=== PATIENT | female | born 2000 | race Caucasian/White ===

== ENCOUNTER 2020-07-12 18:08 | Emergency (ER) | payer OTHER, SELFPAY ==
--- NOTE | ~2020-07-12 | XR_ITS ---
EXAMINATION: XR shoulder LT min 2V INDICATION: Left shoulder pain TECHNIQUE: Four views of the left shoulder are submitted. COMPARISON: None FINDINGS: Normal alignment. No fracture. Glenohumeral and acromioclavicular joint spaces are normal. Soft tissues are unremarkable. IMPRESSION: 1. No acute osseous abnormality. Reviewed, dictated and finalized at location A. TENDER
--- NOTE | ~2020-07-12 | XR_ITS ---
EXAMINATION: XR chest 1V INDICATION: Chest pain TECHNIQUE: PA view of the chest is obtained. COMPARISON: 03/26/2018 FINDINGS: The lungs are free of acute opacities. There is no pleural effusion or pneumothorax. The ca rdiomediastinal silhouette is normal. Cholecystectomy clips are noted. IMPRESSION: 1. No acute cardiopulmonary abnormality. Reviewed, dictated and finalized at location A. E SUPERVISOR
[2020-07-12 18:22] VITALS: BP 126/80; PULSE 98; RESP 17; TEMP 37.1; O2SAT 99
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
[2020-07-12] MEDS: IBUPROFEN 600 MG TABLET PO (19:42)
[2020-07-12] MEDS: CYCLOBENZAPRINE HCL 10 MG TABLET PO (20:19)
== END 2020-07-12 19:45 | disposition home or self-care (01) ==
PROVIDERS: Emergency Provider Emergency Medicine
DX: S13.4XXA Sprain of ligaments of cervical spine, initial encounter (principal); S40.012A Contusion of left shoulder, initial encounter; Z87.891 Personal history of nicotine dependence; V43.52XA Car driver injured in collision with other type car in traffic accident, initial encounter
CPT/HCPCS: 71045; 73030; 99284; A9270

== ENCOUNTER 2020-07-17 10:28 | Outpatient (CLI) | payer OTHER, SELFPAY ==
--- NOTE | ~2020-07-17 | US_ITS ---
EXAMINATION: US pelvic complete w TV DATE: 07/17/2020 11:12 INDICATION: Abnormal uterine and vaginal bleeding TECHNIQUE: Multiple transabdominal and endovaginal sonographic images of the pelvis were obtained. COMPARISON: None. FINDINGS: The uterus measures 6.8 x 2.9 x 5.1 cm. The endometrial complex measures 7 mm in thickness. The righ t ovary measures 1.8 x 2.6 x 3.5 cm. The left ovary measures 3.0 x 2.9 x 2.3 cm. There is normal vasc ular flow in the ovaries. Multiple bilateral subcentimeter anechoic follicles with larger 1.8 cm anec hoic dominant follicle at the left ovary. There is a trace amount of likely physiologic free fluid in the pelvis. IMPRESSION: 1. Normal pelvic ultrasound. Reviewed, dictated and finalized at location B. ICAL LANGUAGES PROFESSOR
== END 2020-07-17 10:29 | disposition home or self-care (01) ==
PROVIDERS: Visit Provider Obstetrics & Gynecology
DX: N93.9 Abnormal uterine and vaginal bleeding, unspecified (principal)
CPT/HCPCS: 76830; 76856

== ENCOUNTER 2021-01-21 16:43 | Outpatient (CLI) | payer OTHER, SELFPAY ==
--- NOTE | ~2021-01-21 | US_ITS ---
EXAMINATION: US OB <= 14 weeks fetus DATE: 01/21/2021 17:26 INDICATION: Encounter for supervision of normal . TECHNIQUE: Real-time transabdominal pelvic ultrasound was performed. COMPARISON: None. FINDINGS: The uterus measures 11.7 x 6.6 x 8.7 cm. There is an intrauterine gestational sac. The crown ru mp length measures 3.1 cm, which correlates with an estimated gestational age of 10 weeks and 0 day(s ) (+/-) 6 day(s). heart motion is identified measuring 161 beats per minute (bpm) by M-mode Dop pler. There is a small subchorionic hematoma measuring 2.4 x 0.4 x 1.6 cm. The right ovary is not vis ualized. The left ovary measures 3.2 x 2.2 x 2.7 cm. There is no free fluid in the pelvis. IMPRESSION: 1. Single living intrauterine gestation with estimated date of delivery of 08/19/2021. 2. Small subchorionic hematoma. Reviewed, dictated and finalized at location A. IMPRESSION: 1. Single living intrauterine gestation with estimated date of delivery of 08/03. 2. Small subchorionic hematoma.
== END 2021-01-21 16:44 | disposition home or self-care (01) ==
LOC: ANHIMG 16:46
PROVIDERS: Visit Provider Obstetrics & Gynecology
DX: O46.90 Antepartum hemorrhage, unspecified, unspecified trimester (principal); Z3A.00 Weeks of gestation of pregnancy not specified
CPT/HCPCS: 76801

== ENCOUNTER 2021-03-15 15:59 | Outpatient (CLI) | payer OTHER, SELFPAY ==
--- NOTE | ~2021-03-15 | US_ITS ---
EXAMINATION: US OB limited DATE: 03/15/2021 16:28 INDICATION: Disorder of amniotic fluid and membranes during second trimester . TECHNIQUE: Real-time ultrasound of the pelvis was performed. The interpreting radiologist was not pre sent for the study. COMPARISON: None. FINDINGS: There is a single living fetus in transverse lie. The placenta is posterior fundal and not low-lying with caudal margin 3.3 cm from the internal cervical os. There are couple a couple small heterogeneo usly hypoechoic regions along the amniotic side of the placenta measuring 1.4 x 1.1 cm on the left ma rgin and 1.8 x 1.1 cm more centrally which could represent small subamniotic lipomas or placental lak es. Color Doppler imaging this region is not provided and this could also be related to heart r ate is 165 beats per minute (bpm). The amniotic fluid volume is subjectively normal. IMPRESSION: 1. Single living fetus in transverse lie with heart rate of 165 bpm. 2. A couple small hypoechoic regions along the amniotic margin of the placenta which could represent either venous lakes or small subamniotic hematomas. Reviewed, dictated and finalized at location A.
== END 2021-03-15 16:00 | disposition home or self-care (01) ==
LOC: ANHIMG 16:00
PROVIDERS: Visit Provider Obstetrics & Gynecology
DX: O41.8X99 Other specified disorders of amniotic fluid and membranes, unspecified trimester, other fetus (principal); Z3A.00 Weeks of gestation of pregnancy not specified
CPT/HCPCS: 76815

== ENCOUNTER 2021-05-02 15:09 | Outpatient (CLI) | payer OTHER, SELFPAY ==
--- NOTE | ~2021-05-02 | US_ITS ---
EXAMINATION: US OB follow up DATE: 05/02/2021 15:57 INDICATION: Supervision of normal second trimester TECHNIQUE: Real-time ultrasound of the pelvis was performed. The interpreting radiologist was not pre sent for the study. COMPARISON: 03/15/2021 FINDINGS: There is a single living fetus in breech presentation. The placenta is posterior. car diac activity and movement are noted. heart rate is 148 beats per minute (bpm). The amnio tic fluid index is 13.4 cm which is normal. The following biometric data were obtained: Biparietal diameter (BPD): 5.6 cm; head circumference (HC): 21.7 cm; abdominal circumference (AC): 19 .5 cm; femur length (FL): 4.3 cm. These measurements are concordant. Estimated weight is 657 g +/- 98 g, which correlates with the 26th percentile when 08/19/2021 is used as estimated date of delivery. As single measurements, these parameters are each equal to the following estimated gestational ages w ith ranges of +/- 2 standard deviations: BPD: 23 weeks 2 days +/- 1 weeks 5 days. HC: 23 weeks 6 days +/- 1 weeks 3 days. AC: 24 weeks 1 days +/- 2 weeks 1 days. FL: 24 weeks 1 days +/- 2 weeks 1 days. estimated gestational age based solely on measurements from this exam is 23 weeks 6 days +/- 1 weeks 5 days. IMPRESSION: 1. Single living fetus in breech presentation. 2. Estimated weight is 657 g +/- 98 g, which correlates with the 26th percentile when 08/19/2021 is used as estimated date of delivery. 3. Normal amniotic fluid index. Reviewed, dictated and finalized at location A. IMPRESSION: 1. Single living fetus in breech presentation. 2. Estimated weight is 657 g +/- 98 g, which correlates with the 26th per centile when 08/19/2021 is used as estimated date of delivery. 3. Normal amniotic fluid index.
== END 2021-05-02 15:10 | disposition home or self-care (01) ==
PROVIDERS: Visit Provider Obstetrics & Gynecology
DX: O47.9 False labor, unspecified (principal); Z3A.23 23 weeks gestation of pregnancy
CPT/HCPCS: 76816

== ENCOUNTER 2021-08-07 06:00 | Inpatient (IN) | payer OTHER, SELFPAY ==
[2021-08-07] VITALS (122 sets, daily range): BP systolic 99–180; BP diastolic 56–90; PULSE 64–135; RESP 18; TEMP 36.6–36.8; O2SAT 98–100
--- OUTSIDE RECORDS SUMMARY | 2021-08-07 06:08 | XMS_ITS | Encounter Summary ---
:2000 Author Reason for Visit OB visit Assessment and Plan 1. Group B Streptococcus carrier 2. Routine care Discussion Note: None recorded.Patient educational handouts: No information available. Plan of Care Reminders Provider Appointments Ob Routine Mary Alice Motley, 08/14/2021 CNM 5:30PM Lab None ? ? recorded. Referral None ? ? recorded. Procedures None ? ? recorded. Surgeries None ? ? recorded. Imaging None ? ? recorded. Medications None recorded. Medications Administered None recorded. Vitals Height Weight BMI Blood Pressure 5 ft 3 in 158 lbs 28 kg/m2 119/74 mm[Hg] Results Lab Results None recorded. Allergies Code Code System Name Reaction Severity Onset 060835 RxNorm Honey Hives ? ? Latex, Natural Rash Mild to Moderate ? Rubber Problems Name Status Onset Date Source ? Active 06/26/2021 ? Marginal Insertion of Umbilical Cord Active ? ? Group B Streptococcus Carrier Active ? ? Procedures Date Name Performed by ? 09/28/2017 C
--- OUTSIDE RECORDS SUMMARY | 2021-08-07 06:08 | XMS_ITS | Encounter Summary ---
:2000 Author Reason for Visit new OB Assessment and Plan 1. Routine care Discussion Note: None recorded.Patient educational [...] BMI Blood Pressure 5 ft 3 in 150 lbs 26.6 kg/m2 123/73 mm[Hg] Results Lab Results None recorded. Allergies Code Code System Name Reaction Severity Onset 918019 RxNorm Honey Hives ? ? Latex, Natural Rash Mild to Moderate ? Rubber Problems Name Status Onset Date Source ? Active 06/26/2021 ? Marginal Insertion of Umbilical Cord Active ? ? Group B Streptococcus Carrier Active ? ? Procedures Date Name Performed by ? 09/28/2017 Cholecystectomy Information not efrenai labzaheer ?
--- OUTSIDE RECORDS SUMMARY | 2021-08-07 06:08 | XMS_ITS | Encounter Summary ---
:2000 Author Reason for Visit OB visit Assessment and Plan 1. Routine care Discussion [...] BMI Blood Pressure 5 ft 3 in 154 lbs 27.3 kg/m2 112/69 mm[Hg] Results Lab Results None recorded. Allergies Code Code System Name Reaction Severity Onset 644725 RxNorm Honey Hives ? ? Latex, Natural Rash Mild to Moderate ? Rubber Problems Name Status Onset Date Source ? Active 06/26/2021 ? Marginal Insertion of Umbilical Cord Active ? ? Group B Streptococcus Carrier Active ? ? Procedures Date Name Performed by ? 09/28/2017 Cholecystectomy Information not efrenai labzaheer ?
--- OUTSIDE RECORDS SUMMARY | 2021-08-07 06:08 | XMS_ITS ---
:2000 Author Care Team Providers Name Role Phone Karley Monteiro Primary Care Provider Unavailable Allergies Code Code System Name Reaction Severity Status Onset 427574 RxNorm Honey Hives ? Active ? Latex, Rash Mild to Active ? Natural Moderate Rubber Medications Name Status Start Date Stop Date ? ? Aspirin Low Dose 81 mg tablet,delayed release Completed ? 06/26/2021 TAKE 1 TABLET BY MOUTH TWICE DAILY bupropion HCl 150 mg tablet,12 hr sustained-release(sm oking deterrent) Completed ? 06/26/2021 TAKE 1 TABLET BY MOUTH TWICE DAILY calcium carbonate 600 mg-vitamin D3 10 mcg (400 unit) tablet Com pleted ? 06/26/2021 TAKE 1 TABLET BY MOUTH TWICE DAILY clindamycin HCl 300 mg capsule Completed ? 08/26/2020 cyclobenzaprine 10 mg tablet Completed ? TAKE 1 TABLET BY MOUTH THREE TIMES DAILY NEEDED FOR MUSCLE S PASM escitalopram 20 mg tablet Completed ? 2020 TAKE 1 TABLET BY MOUTH DAILY folic acid 1 mg tablet Completed ? TAKE 2 TABLETS BY MOUTH TWICE DAILY DIRECTED hydrocodone 5 mg-acetaminophen 325 mg tablet Completed ? 06/26/2021 TAKE 1 TABLET BY MOUTH EVERY 6 HOURS NEEDED FOR PAIN ibuprofen 800 mg tablet Completed ? 06/26/20 TAKE 1 TABLET BY MOUTH EVERY 8 HOURS NEEDED FOR PAIN metronidazole 500 mg tablet Completed ? 06/04 TAKE 1 TABLET BY MOUTH TWICE DAILY FOR 7 DAYS multivitamin tablet Completed ? 06/26/2021 TAKE 1 TABLET BY MOUTH EVERY DAY
--- OUTSIDE RECORDS SUMMARY | 2021-08-07 06:08 | XMS_ITS | Encounter Summary ---
:2000 Author Reason for Visit None recorded. Assessment and Plan 1. condition affecting obs tetrical care of mother ? US, obstetric, follow-up Discussion Note: None recorded.Patient educational handouts: No information available. Plan of Care Reminders Provider Appointments Ob Routine Mary Alice Motley, 08/14/2021 CNM 5:30PM Lab None ? ? recorded. Referral None ? ? recorded. Procedures None ? ? recorded. Surgeries None ? ? recorded. Imaging [facility] Obstetric, Follow-up 07/23/2021 Medications None recorded. Medications Administered None recorded. Vitals None recorded. Results Lab Results None recorded. Allergies Code Code System Name Reaction Severity Onset 064958 RxNorm Honey Hives ? ? Latex, Natural Rash Mild to Moderate ? Rubber Problems Name Status Onset Date Source ? Active 06/26/2021 ? Marginal Insertion of Umbilical Cord Active ? ? Group B Streptococcus Carrier Active ? ? Procedures Date Name Performed by ? 09/28/2017 Cholecystectomy Information not rafael ortiz
--- OUTSIDE RECORDS SUMMARY | 2021-08-07 06:08 | XMS_ITS | Encounter Summary ---
:2000 Author Reason for Visit OB visit Assessment and Plan 1. Routine care 2. Marginal insertion of umbilic al cord Discussion Note: None recorded.Patient educational handouts: No [...] BMI Blood Pressure 5 ft 3 in 153 lbs 27.1 kg/m2 121/74 mm[Hg] Results Lab Results None recorded. Allergies Code Code System Name Reaction Severity Onset 020984 RxNorm Honey Hives ? ? Latex, Natural Rash Mild to Moderate ? Rubber Problems Name Status Onset Date Source ? Active 06/26/2021 ? Marginal Insertion of Umbilical Cord Active ? ? Group B Streptococcus Carrier Active ? ? Procedures Date Name Performed by ? 09/28/2017
--- OUTSIDE RECORDS SUMMARY | 2021-08-07 06:08 | XMS_ITS | Encounter Summary ---
:2000 Author Reason for Visit None recorded. Assessment and Plan 1. Uterine size for dates discre pancy ? US, obstetric, follow-up Discussion Note: None recorded.Patient educational handouts: No information available. Plan of Care Reminders Provider Appointments Ob Routine Mary Alice Motley, 08/14/2021 CNM 5:30PM Lab None ? ? recorded. Referral None ? ? recorded. Procedures None ? ? recorded. Surgeries None ? ? recorded. Imaging , [place] Obstetric, Follow-up 06/26/2021 Medications None recorded. Medications Administered None recorded. Vitals None recorded. Results Lab Results None recorded. Allergies Code Code System Name Reaction Severity Onset 685214 RxNorm Honey Hives ? ? Latex, Natural Rash Mild to Moderate ? Rubber Problems Name Status Onset Date Source ? Active 06/26/2021 ? Marginal Insertion of Umbilical Cord Active ? ? Group B Streptococcus Carrier Active ? ? Procedures Date Name Performed by ? 09/28/2017 Cholecystectomy Information not rafael ortiz
[2021-08-07 06:55] LABS: Basophils Percent Auto 0.2 % (0.2-1.2); Eosinophils Absolute Auto 0.1 K/mm3 (0-0.3); Eosinophils Percent Auto 1.2 % (0-4.4); Hematocrit 37.7 % (37.0-47.0); Hemoglobin 12.8 g/dL (12.0-15.0); Immature Granulocyte Absolute 0.08 K/mm3 (0.00-0.031); Immature Granulocyte Percent A 0.7 % (0-0.5); Lymphocytes Absolute Auto 2.44 K/mm3 (0.9-3.2); Lymphocytes Percent Auto 20.1 % (18.3-44.2); Mean Corpuscular Hemoglobin 30.8 pg (26-34); Mean Corpuscular Volume 90.8 fl (80-100); Mean Platelet Volume 10.5 fl (7.4-10.4); Monocytes Absolute Auto 0.8 K/mm3 (0.1-0.6); Monocytes Percent Auto 6.8 % (2.6-8.5); Neutrophils Absolute Auto 8.6 K/mm3 (1.3-6.7); Platelet Count Result 197 k/mm3 (150-375); Red Blood Count 4.15 M/mm3 (4.2-5.4); Red Cell Distribution Width 12.9 % (11.5-14.5); White Blood Count 12.2 K/mm3 (4.5-10.0)
[2021-08-07] MEDS: LACTATED RINGERS 1,000 ML 125 ML IV CONT ×2 (07:10→14:10)
[2021-08-07] MEDS: OXYTOCIN 30 UNITS/NS 500 ML 30 UNITS/500 ML BAG IV CONT ×3 (07:11→15:14)
[2021-08-07] MEDS: AMPICILLIN 2 GM/NS 100 ML 2 GM/100 ML BAG IVPB (07:12)
--- NOTE | 2021-08-07 07:33 | WPDOBADMIT ---
Obstetrics - Admit Note Admission Note: record reviewed. No pertinent additions to the history and/or any subsequent changes in the physical findings that are not consistent with the expected course of the were found. Additions to the history and/or subsequent changes in the physical findings follow. at 39w for elective IOL. uncomplicated except by GBS pos and transfer to us in 3rd trimester. AROM small clear 3/50 continue antibiotics and pitocin FHT category 1
--- NOTE | 2021-08-07 07:54 | P.PNAN_ITS ---
Anes - Eval Pre Procedure Date/Time: 08/07/21 07:54 Pre Op Diagnosis: IOL Patient Data Age: 20 Gender: F Height: Weight: Last Vital Signs Pulse 90 08/07/21 07:45 BP 117/77 08/07/21 07:45 Allergies Allergy/AdvReac Type Severity Reaction Status Date / Time honey Allergy Unknown Swelling Verified 07/19/21 12:47 of Lip/Tongue/Throat latex Allergy Unknown Itching Verified 07/19/21 12:47 metoclopramide Allergy Unknown Other Verified 07/12/20 18:21 Laboratory Tests 08/07/21 08/07/21 06:43 06:43 WBC 12.2 K/mm3 H K/mm3 (4.5-10.0) RBC 4.15 M/mm3 L M/mm3 (4.2-5.4) Hgb 12.8 g/dL g/dL (12.0-15.0) Hct 37.7 % % (37.0-47.0) MCV 90.8 fl fl (80-100) MCH 30.8 pg pg (26-34) MCHC 34.0 g/dl g/dl (32-36) RDW 12.9 % % (11.5-14.5) Plt Count 197 k/mm3 k/mm3 (150-375) MPV 10.5 fl H fl (7.4-10.4) Immature Gran % (Auto) 0.7 % H % (0-0.5) Neut % (Auto) 71.0 % % (45.5-73.1) Lymph % (Auto) 20.1 % % (18.3-44.2) [place] % (Auto) 6.8 % % (2.6-8.5) Eos % (Auto) 1.2 % % (0-4.4) Baso % (Auto) 0.2 % % (0.2-1.2) Lymph # (Auto) 2.44 K/mm3 K/mm3 (0.9-3.2) [place] # (Auto) 0.8 K/mm3 H K/mm3 (0.1-0.6) Eos # (Auto) 0.1 K/mm3 K/mm3 (0-0.3) Baso # (Auto) 0.0 K/mm3 K/mm3 (0.0-0.1) Abs Immat Gran (auto) 0.08 K/mm3 H K/mm3 (0.00-0.031) Absolute Neuts (auto) 8.6 K/mm3 H K/mm3 (1.3-6.7) Absolute Nucleated RBC 0.0 K/mm3 K/mm3 (0.0-0.012) Nucleated RBC % 0.0 % % (0.0-0.2) RPR Pending Patient hx anesthesia problems: none Family hx anesthesia problems: none Results Review: All pre-operative results and documents have been reviewed as part of the pre-operative evaluation. [facility] Past Medical History Medical History (Updated 08/07/21 @ 08:03 by Eryn Carty CRNA) Anxiety and depression Smoker Tricuspid insufficiency EF 55% Family History Family History Mother Family history of kidney disease Sibling Family history of kidney disease Social History Social History Smoking status: Current every day smoker Tobacco type: cigarettes Second hand tobacco smoke exposure: No Smoking end date: 08/03/17 Alcohol intake: never Substance use: never Gender identity (if verbalized by the patient): Female Spiritual care concerns: No Exam Day of Procedure 08/07/21 07:54 Patient weight: normal Heart: regular rate and rhythm Lungs: clear to auscultation Airway: Mallampati scale Neurological: alert and oriented
[2021-08-07 10:27] LABS: Benzodiazepines Screen Urine Negative (Negative)
[2021-08-07 10:33] LABS: Barbiturate Screen Urine Negative (Negative)
[2021-08-07 10:38] LABS: Amphetamine Screen Urine Negative (Negative); Cannabinoid Screen Urine Negative (Negative); Cocaine Screen Urine Negative (Negative); Methadone Screen Urine Negative (Negative); Opiate Screen Urine Negative (Negative); Phencyclidine Screen Urine Negative (Negative)
[2021-08-07] MEDS: AMPICILLIN 1 GM/NS 50 ML 1 GM/50 ML BAG IVPB (11:25)
--- NOTE | 2021-08-07 14:43 | PM.OBPRVD ---
OB - Delivery Note Procedure Delivery date: 08/07/21 Procedure: Intrapartal events: None Induction method: AROM and per pitocin protocol Delivery monitor: external FHT and external uterine Route of delivery: Episiotomy description: None Laceration Description: Periurethral (left periurethral and clitoral) and Vaginal - 2nd Degree Delivery repair: vicryl Specimen: No Quantitative Blood Loss (ml): 350 Anesthesia type: Epidural Disposition: floor Narrative: With adequate expulsive efforts by the mother, the baby's head was delivered OA. The baby's anterior shoulder was delivered under the pubic symphysis without difficulty. The posterior shoulder and the rest of the baby delivered without difficulty. The was placed on the mothers chest and suctioned and stimulated. The cord was clamped and cut after 30 seconds. Mother and baby both stable. [place] Baby Date of : 08/07/21 Time of : 14:23 Weeks of gestation at delivery: 39 gender: Male Weight (pounds): 6 Weight (ounces): 11 presentation: vertex Placenta delivery description: Spontaneous cord vessel description: 3 Vessels and Delayed Cord Clamping score one minute: 8 score five minutes: 9
--- NOTE | 2021-08-07 17:03 | PC.NURSE ---
Patient transferred to post room #285 per wheelchair. Support person present. Oriented to unit, room, information board, rooming in, admission packet and security measures. Patient verbalizes understanding.
--- NOTE | 2021-08-07 19:45 | PC.NURSE ---
Breast pump provided due to [ineffective feedings]. Instructions given on breast pump care and usage, pumping schedule, nipple care, and collection and storage of breast milk. Encouraged [id number], breast massage and manual expression to stimulate supply. Pumping log provided and reviewed. Assessed patient for correct flange size, placement and draw. Patient verbalizes and demonstrates understanding of instructions.
[2021-08-07] MEDS: IBUPROFEN 600 MG TABLET PO (19:52)
[2021-08-08] MEDS: IBUPROFEN 600 MG TABLET PO ×3 (04:25→18:05)
[2021-08-08 04:55] LABS: Hematocrit 34.1 % (37.0-47.0); Hemoglobin 11.6 g/dL (12.0-15.0)
--- NOTE | 2021-08-08 07:39 | PM.OBPNVD ---
OB - PN: Subj Subjective Date/time seen: 08/08/21 07:39 Patient comments: no complaints baby status: doing well OB - PN: Obj Data Labs CBC & Chem 7: 08/08/21 04:18 Labs: Laboratory Results - last 24 hr 08/07/21 08/07/21 08/08/21 06:43 09:50 04:18 Hgb 11.6 L Hct 34.1 L Urine Opiates Screen Negative Urine Methadone Screen Negative Ur Barbiturates Screen Negative Ur Phencyclidine Scrn Negative Ur Amphetamine Screen Negative U Benzodiazepines Scrn Negative Urine Cocaine Screen Negative U Cannabinoids Screen Negative Blood Type O Positive Antibody Screen Negative OB - PN A/P Plan day: 1 Plan: routine care Time Spent With Patient Time: Total time spent is greater than 50% in coordination of care (as documented) at patient's floor/unit and/or counseling patient: Time with patient: less than 15 minutes Review of Systems Review of Systems: All systems reviewed & are unremarkable except as noted in HPI and below Exam Narrative: Fundus firm and vaginal flow controlled. No lower ext redness, warmth, or edema. Negative homans. Const: General: comfortable Chest: Breast/axilla inspection: normal inspection of the breasts Resp: Effort & Inspection: normal respiratory effort Cardio: Rate: regular rate GI: GI Palp: Yes Soft to palpation Psych: Appearance: grossly normal Affect: normal affect Attitude: cooperative Thought content: Yes Normal thought content present Judgement: Good judgement present (Psych)
--- NOTE | 2021-08-08 07:40 | P.DS_ITS ---
DS: Admitting Diagnosis Discharge Date 08/08/20 Admitting Diagnosis Induction of labor OB - DS: Summary OB Procedures : None OB Procedures Intrapartum: Spontaneous Vag Delivery OB Procedures: : None Time Spent with Patient Time attestation: Total time spent providing and/or coordinating discharge serv ices: DS: Data Data Completed and Pending Labs on day of discharge: Labs from last 24 hours 08/08/21 08/07/21 08/07/21 04:18 09:50 06:43 Hgb 11.6 L Hct 34.1 L Urine Opiates Screen Negative Urine Methadone Screen Negative Ur Barbiturates Screen Negative Ur Phencyclidine Scrn Negative Ur Amphetamine Screen Negative U Benzodiazepines Scrn Negative Urine Cocaine Screen Negative U Cannabinoids Screen Negative Blood Type O Positive Antibody Screen Negative Discharge Plan Discharge Attending physician on discharge: Karley Monteiro Discharging Clinician: Alicia Vu Patient Disposition: Home, Self-Care Activity: pelvic rest Diet: as tolerated Patient Instructions: Antibiotic Form Stand Alone Forms: General Discharge Information Follow-up/Referrals: Karley Monteiro MD [Physician] - Date of admission: 08/07/21 06:00 Primary Care Provider: PHYSICIAN,AUDIO DIRECTOR Admitting Provider: Karley Monteiro Attending physician on admission: Karley Monteiro Condition: Stable
[2021-08-08 08:00] VITALS: BP 106/56; PULSE 69; RESP 18; TEMP 36.4; O2SAT 99
--- NOTE | 2021-08-08 08:00 | PC.NURSE ---
Patient was given the opportunity to view the discharge video Mother & Baby Care, The First Two Weeks and to ask questions. Patient declined viewing the video and has been given the mother/baby guide for home reference.
[2021-08-08] MEDS: BENZOCAINE 20% AER SPR (*SP) 56 GM CAN 1 SPRAY TOPICAL (08:55)
[2021-08-08] MEDS: WITCH HAZEL 40 PADS 1 PAD TOPICAL (08:55)
[2021-08-08] MEDS: MULTIVIT/MIN/PREN/FOL AC/IRON TABLET 1 TAB PO (08:56)
[2021-08-08] MEDS: DOCUSATE SODIUM 100 MG CAPSULE PO ×2 (08:56→18:05)
--- NOTE | 2021-08-08 09:59 | PC.NURSE ---
Self care and infant care discharge instructions given including follow up visit date and time. Mother verbalized understanding. No questions or concerns voiced. Very pleasant and cooperative.
--- NOTE | 2021-08-08 10:50 | WPDANLDPN2 ---
Anes-Prog Note L&D Date/Time: 08/08/21 10:50 Comfortable throughout: labor and delivery Neuraxial method: epidural Epidural/Spinal procedure site: clean & non-tender Neuro status: Neuro function grossly intact. Cardiovascular status: normal Respiratory status: normal Airway patency: baseline Mental status: baseline Post-Op hydration status: normal Vital Signs: Last Vital Signs Temp 36.4 C 08/08/21 08:00 Pulse 69 08/08/21 08:00 Resp 18 08/08/21 08:00 BP 106/56 L 08/08/21 08:00 Pulse Ox 99 08/08/21 08:00 Pain score (VAS): 08/12 I/O: Intake & Output 08/07/21 08/08/21 08/08/21 23:59 07:59 15:59 Intake Total 1000 Output Total 350 Balance 650 Post-procedural complaints: none Patient feedback: Patient satisfied with anesthetic care.
--- NOTE | 2021-08-08 11:54 | PC.NURSE ---
08/07/2021 1536 [facility]. [facility] called for assistance with getting infant to latch in room 108. time was 1423 and mom states baby went skin to skin about 30 min ago. Infant remains skin to skin. RN reviewed feeding cues and to call for assistance with latch as infant is reluctant to go to breast at this time. Mom states her concerns with her nipple, breast, milk production being enough, states I might need a nipple shield and shared that she experienced mastitis with her last . Encouragement given to mom after reviewing her desire to pump and feed breastmilk. Reviewed hand nipple stimulation, stimulation with effective and/or pumping. Mom verbalized understanding and reinforcement will be needed. RN reported to the primary nurse.
[2021-08-08 13:58] LABS: Rapid Plasma Reagin Non-Reactive (NonReactive)
== END 2021-08-08 19:30 | disposition home or self-care (01) | DRG 560 ==
LOC: ANHLDR 06:06 → ANHOB2 19:19
PROVIDERS: Admitting Provider Obstetrics & Gynecology; Visit Provider Obstetrics & Gynecology
DX: O43.123 Velamentous insertion of umbilical cord, third trimester (principal); O99.334 Smoking (tobacco) complicating childbirth; F17.210 Nicotine dependence, cigarettes, uncomplicated; Z3A.39 39 weeks gestation of pregnancy; Z37.0 Single live birth; O71.82 Other specified trauma to perineum and vulva; O70.1 Second degree perineal laceration during delivery
CPT/HCPCS: 36415; 80307; 85014; 85018; 85025; 86592; 86850; 86900; 86901; A9270; J0290; J2590; J2795; J7120

== ENCOUNTER 2022-11-10 13:47 | Emergency (ER) | payer OTHER, SELFPAY ==
--- NOTE | ~2022-11-10 | US_ITS ---
EXAMINATION: US OB transvaginal DATE: 11/10/2022 15:50 INDICATION: Abdominal pain. TECHNIQUE: Real-time transabdominal and transvaginal obstetric ultrasound. FINDINGS: No prior studies for comparison. The uterus measures 11.4 x 7 x 8.2 cm. There is an intrauterine gestational sac, with pole iden tified. The crown rump length measures 2.62 cm, which correlates with a estimated gestational age of 9 weeks 3 days. heart tones are identified measuring 177 BPM. There is a subchorionic hemorr leola measuring 1.7 x 1.6 x 0.7 cm. There is a corpus luteal cyst of the right ovary measuring 1.7 cm. The left ovary is unremarkable. IMPRESSION: 1. SL IUP with an EGA of 9 weeks, 3 days (EDC by current ultrasound of 06/12/2023). 2: Small subchorionic hemorrhage. Reviewed, dictated and finalized at location B. IMPRESSION: 1. SL IUP with an EGA of 9 weeks, 3 days (EDC by current ultrasound of 06/12/20 23). 2: Small subchorionic hemorrhage.
[2022-11-10 14:03] VITALS: BP 112/62; PULSE 76; RESP 18; TEMP 37.1; O2SAT 99
[2022-11-10 16:11] LABS: Basophils Percent Auto 0.3 % (0.2-1.2); Eosinophils Absolute Auto 0.2 K/mm3 (0-0.3); Eosinophils Percent Auto 1.7 % (0-4.4); Hematocrit 40.8 % (37.0-47.0); Hemoglobin 13.6 g/dL (12.0-15.0); Immature Granulocyte Absolute 0.02 K/mm3 (0.00-0.031); Immature Granulocyte Percent A 0.2 % (0-0.5); Lymphocytes Absolute Auto 2.79 K/mm3 (0.9-3.2); Lymphocytes Percent Auto 28.1 % (18.3-44.2); Mean Corpuscular HGB Conc 33.3 g/dl (32-36); Mean Corpuscular Hemoglobin 30.8 pg (26-34); Mean Corpuscular Volume 92.3 fl (80-100); Monocytes Absolute Auto 0.8 K/mm3 (0.1-0.6); Monocytes Percent Auto 7.8 % (2.6-8.5); Neutrophils Absolute Auto 6.1 K/mm3 (1.3-6.7); Neutrophils Percent Auto 61.9 % (45.5-73.1); Platelet Count Result 250 k/mm3 (150-375); Red Blood Count 4.42 M/mm3 (4.2-5.4); Red Cell Distribution Width 12.6 % (11.5-14.5); White Blood Count 9.9 K/mm3 (4.5-10.0)
--- NOTE | 2022-11-10 16:17 | ED.ABDPAIN ---
HPI - Abdominal Pain General Chief Complaint: Abdominal Pain Stated Complaint: abdominal pain Time Seen by Provider: 11/10/22 16:07 History of Present Illness HPI narrative: Patient is a 22-year-old female who is currently about 8 weeks by LMP with a history of cholecystitis status post cholecystectomy in 2018 here for evaluation epigastric abdominal pain x4 days. Patient states the pain is there after she eats. She is currently pain-free, but also has not eaten anything today. It is described as a burning sensation and occasionally moves to her back. She had a similar sensation in the past but states it resolved without intervention, never had this worked up. Some nausea but no vomiting. No vaginal bleeding, sudden gush of fluids, contractions, fevers, chills, diarrhea or constipation. Related Data Allergies Allergy/AdvReac Type Severity Reaction Status Date / Time honey Allergy Unknown Swelling Verified 11/10/22 13:48 of Lip/Tongue/Throat latex Allergy Unknown Itching Verified 11/10/22 13:48 metoclopramide Allergy Unknown Other Verified 11/10/22 13:48 Review of Systems Review of Systems: Gen: Denies fevers or chills Eyes: Denies eye pain or visual change ENT: Denies congestion Respiratory: Denies shortness of breath or cough CV: Denies chest pain or palpitations GI: reports abdominal pain, nausea : denies burning, urgency, frequency or hematuria Musculoskeletal: Denies back pain or muscle pain Neuro: Denies numbness, tingling, weakness or focal weakness Skin: Denies rash Except as documented, all other systems reviewed and negative PMFSH Past Medical History Medical History Anxiety and depression Smoker Tricuspid insufficiency EF 55% Family History Family History Mother Family history of kidney disease Sibling Family history of kidney disease Social History Social History Smoking status: Current every day smoker Tobacco type: cigarettes Second hand tobacco smoke exposure: No Smoking end date: 08/03/17 Alcohol intake: never Substance use: never Gender identity (if verbalized by the patient): Female Spiritual care concerns: No Exam Narrative: APPEARANCE: Well appearing, no pain in distress, well-nourished. Head: Normocephalic and atraumatic. EYES: PERRLA/EOMI, conjunctivae clear NOSE: No nasal drainage EARS: External ear normal in appearance THROAT: Oropharynx is clear. Mucous membranes are moist. NECK: Supple. No adenopathy, no masses. RESPIRATORY: Airway patent, respirations nonlabored. Clear to auscultation bilaterally, no rales, rhonchi, wheezing. CARDIOVASCULAR: Regular rate and rhythm without murmurs, rubs, or gallops. ABDOMINAL: No abdominal tenderness on exam. No rebound tenderness or guarding. Soft, nondistended. MUSCULOSKELETAL: Extremities are warm and well-perfused. Moves all extremities well. No edema. NEURO: Normal speech. No focal neurologic deficits. SKIN: Skin is warm and dry. No rashes. PSYCHIATRIC: Normal affect/mood. Course Vital Signs Vital signs: Vital Signs Temperature 98.7 F 11/10/22 14:03 Pulse Rate 76 11/10/22 14:03 Respiratory Rate 18 11/10/22 14:03 Blood Pressure 112/62 11/10/22 14:03 Pulse Oximetry 99 11/10/22 14:03 Oxygen Delivery Room Air 11/10/22 14:03 Temperature 98.7 F 11/10/22 14:03 Pulse Rate 85 11/10/22 16:48 Respiratory Rate 18 11/10/22 16:48 Blood Pressure 115/72 11/10/22 16:48 Pulse Oximetry 100 11/10/22 16:48 Oxygen Delivery Room Air 11/10/22 14:03 MDM - Abdominal Pain MDM Narrative Medical decision making narrative: 22 year old female here for evaluation of post prandial epigastric burning x 3 days, associated with some nausea. She has normal vital signs and no abdominal tenderness on exam. History of cholecystectomy. No elevation in h
[2022-11-10] MEDS: LACTATED RINGERS 1,000 ML 999 ML IV CONT (16:25)
[2022-11-10 16:26] LABS: Alanine Aminotransferase 16 U/L (6-35); Albumin Level 4.3 g/dL (3.5-5.1); Alkaline Phosphatase 61 U/L (38-126); Anion Gap 8 mmol/L (8-16); Aspartate Amino Transferase 21 U/L (14-36); Bilirubin,Total 0.4 mg/dL (0.2-1.3); Blood Urea Nitrogen 12 mg/dL (7-17); Calcium 9.1 mg/dL (8.4-10.2); Carbon Dioxide 26 mmol/L (22-30); Chloride 102 mmol/L (98-107); Estimated CRCL calculation 121 ml/min; Estimated Glomerular Filt Rate > 60; Glucose 83 mg/dL (65-110); Lipase 57 U/L (23-300); Potassium 3.9 mmol/L (3.4-5.0); Sodium 136 mmol/L (137-145)
[2022-11-10] MEDS: FAMOTIDINE 20 MG/2 ML VIAL IV PUSH (16:45)
[2022-11-10 16:48] VITALS: BP 115/72; PULSE 85; RESP 18; O2SAT 100
[2022-11-10 17:05] LABS: Appearance Urine Cloudy (Clear); Bacteria Urine 1+ /hpf; Bilirubin Urine Negative (Negative); Blood Urine Negative (Negative); Color Urine Yellow (Yellow); Glucose Urine UA Negative (Negative); Ketones Urine Negative (Negative); Leukocyte Esterase Ur 2+ LEU/UL (Negative); Need Manual Microscopic Reviewed; Nitrate Urine Negative (Negative); Non Pathogenic Casts 0-2; Protein Urine Negative (Negative); RBC Urine 0-2 /hpf (0-2); Specific Grav Ur 1.024 (1.001-1.035); Squamous Epithelial Cell Urine Moderate /hpf (Few); Urobilinogen Urine 0.2 mg/dL (<2.0); WBC Urine 0-5 /hpf; pH Urine 5.5 (5.0-9.0)
[2022-11-10 17:17] LABS: Add Urine Microscopic? YES
== END 2022-11-10 18:35 | disposition home or self-care (01) ==
LOC: ANHED 17:41
PROVIDERS: Emergency Medicine; Emergency Provider Physician Assistant; PCP Nurse Practitioner Family
DX: O23.41 Unspecified infection of urinary tract in pregnancy, first trimester (principal); N39.0 Urinary tract infection, site not specified; O99.331 Smoking (tobacco) complicating pregnancy, first trimester; F17.210 Nicotine dependence, cigarettes, uncomplicated; Z3A.08 8 weeks gestation of pregnancy
CPT/HCPCS: 36415; 76817; 80053; 81001; 81025; 83690; 84702; 85025; 85461; 86850; 86900; 86901; 96374; 99284; J7120

== ENCOUNTER 2023-05-27 12:06 | Outpatient (CLI) | payer OTHER, SELFPAY ==
--- NOTE | 2023-05-27 12:36 | PC.NURSE ---
Marilyn Motley notified of ROM plus negative. Discharge home received from [facility].
[2023-05-27 12:52] VITALS: BP 121/70; PULSE 80
== END 2023-05-27 12:55 | disposition home or self-care (01) ==
LOC: ANHOBOP 12:41 → ANHLDR 12:42
PROVIDERS: PCP Nurse Practitioner Family; Visit Provider Advanced Practice Midwife
DX: O42.90 Premature rupture of membranes, unspecified as to length of time between rupture and onset of labor, unspecified weeks of gestation (principal); Z3A.00 Weeks of gestation of pregnancy not specified
CPT/HCPCS: 59025; 84112; 99199

== ENCOUNTER 2023-06-05 05:58 | Inpatient (IN) | payer OTHER, SELFPAY ==
[2023-06-05] VITALS (99 sets, daily range): BP systolic 105–142; BP diastolic 51–110; PULSE 72–108; RESP 16–20; TEMP 36.4–37.7; O2SAT 90–100; BMI 30.8
--- NOTE | 2023-06-05 06:31 | LDADM ---
This patient, Joann Parson, was admitted to Labor/Delivery/Recovery 107 on 06/05/23 at 05:58. Plans for labor, pain management and were discussed with patient. Patient/family oriented to hospital policies and general routines including ID bracelet, bed and alarms, visiting hours, pain management, procedures, bathroom and other care routines, personal items, smoking policy, room service/diet and guest tray routines, infant security routines, and visiting hours. Patient/Family are encouraged to report perceived risks to care and to ask questions if they do not understand what they are told or what they should do. See OBIX for further documentation.
[2023-06-05 07:03] LABS: Basophils Absolute Auto 0.1 K/mm3 (0.0-0.1); Basophils Percent Auto 0.4 % (0.2-1.2); Eosinophils Absolute Auto 0.1 K/mm3 (0-0.3); Eosinophils Percent Auto 0.8 % (0-4.4); Hematocrit 36.4 % (37.0-47.0); Hemoglobin 11.6 g/dL (12.0-15.0); Immature Granulocyte Percent A 0.8 % (0-0.5); Lymphocytes Absolute Auto 3.23 K/mm3 (0.9-3.2); Lymphocytes Percent Auto 25.6 % (18.3-44.2); Mean Corpuscular HGB Conc 31.9 g/dl (32-36); Mean Corpuscular Hemoglobin 28.6 pg (26-34); Mean Corpuscular Volume 89.7 fl (80-100); Mean Platelet Volume 10.9 fl (7.4-10.4); Monocytes Percent Auto 8.2 % (2.6-8.5); Neutrophils Absolute Auto 8.1 K/mm3 (1.3-6.7); Neutrophils Percent Auto 64.2 % (45.5-73.1); Platelet Count Result 243 k/mm3 (150-375); Red Blood Count 4.06 M/mm3 (4.2-5.4); Red Cell Distribution Width 12.5 % (11.5-14.5); White Blood Count 12.6 K/mm3 (4.5-10.0)
[2023-06-05] MEDS: LACTATED RINGERS 1,000 ML 125 ML IV CONT ×2 (07:06→10:20)
[2023-06-05] MEDS: OXYTOCIN 30 UNITS/NS 500 ML 30 UNITS/500 ML BAG IV CONT (07:06)
--- NOTE | 2023-06-05 07:20 | WPDOBADMIT ---
Obstetrics - Admit Note Admission Note: record reviewed. No pertinent additions to the history and/or any subsequent changes in the physical findings that are not consistent with the expected course of the were found. Additions to the history and/or subsequent changes in the physical findings follow. IOL, /-2 AROM clear, odorless fluid, anticipate vaginal delivery
--- NOTE | 2023-06-05 10:35 | WPDANESEPP ---
Anes - Eval Pre Procedure Procedure: labor epidural Date/Time: 06/05/23 10:35 Surgeon: Marco Andino Preop Diagnosis: pain during labor Pre Op Diagnosis: Induction of Labor Patient Data Age: 22 Gender: F Height: 1.6 m Weight: 79 kg Last Vital Signs Temp 36.6 C 06/05/23 09:30 Pulse 79 06/05/23 10:31 Resp 18 06/05/23 09:30 BP 125/72 06/05/23 10:31 O2 Del Method Room Air 06/05/23 06:30 Allergies Allergy/AdvReac Type Severity Reaction Status Date / Time honey Allergy Unknown Swelling Verified 05/15/23 15:32 of Lip/Tongue/Throat latex Allergy Unknown Itching Verified 05/15/23 15:32 metoclopramide Allergy Unknown Other Verified 05/15/23 15:32 Home Medications Medication Instructions Recorded Confirmed Type prenat.vits,saeed,hev-tzwh-xxhsh tablet 05/15/23 History Laboratory Tests 06/05/23 06:11 WBC 12.6 H K/mm3 (4.5-10.0) RBC 4.06 L M/mm3 (4.2-5.4) Hgb 11.6 L g/dL (12.0-15.0) Hct 36.4 L % (37.0-47.0) MCV 89.7 fl (80-100) MCH 28.6 pg (26-34) MCHC 31.9 L g/dl (32-36) RDW 12.5 % (11.5-14.5) Plt Count 243 k/mm3 (150-375) MPV 10.9 H fl (7.4-10.4) Immature Gran % (Auto) 0.8 H % (0-0.5) Neut % (Auto) 64.2 % (45.5-73.1) Lymph % (Auto) 25.6 % (18.3-44.2) [place] % (Auto) 8.2 % (2.6-8.5) Eos % (Auto) 0.8 % (0-4.4) Baso % (Auto) 0.4 % (0.2-1.2) Lymph # (Auto) 3.23 H K/mm3 (0.9-3.2) [place] # (Auto) 1.0 H K/mm3 (0.1-0.6) Eos # (Auto) 0.1 K/mm3 (0-0.3) Baso # (Auto) 0.1 K/mm3 (0.0-0.1) Abs Immat Gran (auto) 0.10 H K/mm3 (0.00-0.031) Absolute Neuts (auto) 8.1 H K/mm3 (1.3-6.7) Absolute Nucleated RBC 0.0 K/mm3 (0.0-0.012) Nucleated RBC % 0.0 % (0.0-0.2) RPR Pending Blood Type O Positive Antibody Screen Negative Patient hx anesthesia problems: none Family hx anesthesia problems: none Results Review: All pre-operative results and documents have been reviewed as part of the pre-operative evaluation. [facility] Past Medical History Medical History Anxiety and depression Smoker Tricuspid insufficiency EF 55% Family History Family History Mother Family history of kidney disease Sibling Family history of kidney disease Social History Social History Smoking status: Former smoker Tobacco type: cigarettes and e-cigarettes/vaping Second hand tobacco smoke exposure: No Smoking end date: 08/03/17 Alcohol intake: never Substance use: never Lack of Transportation: No Lack of Food: Never True Current Housing: I Have Housing Concerned About Future Housing: No Difficulty Paying Gas/Electric Bills: No Difficulty Paying for Meds: No Currently Unemployed: No Education: High School Diploma/GED Difficulty w/ Childcare or Family Care: No Gender identity (if verbalized by the patient): Female Spiritual care concerns: No Exam Day of Procedure 06/05/23 10:35 Patient weight: overweight Heart: regular rate and rhythm Lungs: normal air movement Airway: Mallampati scale class II Neurological: alert and oriented
[2023-06-05 14:06] LABS: Rapid Plasma Reagin Non-Reactive (NonReactive)
--- NOTE | 2023-06-05 15:37 | PM.OBPRVD ---
OB - Vaginal Delivery Note Procedure Delivery date: 06/05/23 Induction method: AROM and Per Pitocin Protocol Delivery monitor: External FHT and External Uterine Route of delivery: Episiotomy description: None Laceration Description: Other (Right periurthral) Delivery repair: vicryl Specimen: No Quantitative Blood Loss (ml): 150 Anesthesia type: Epidural Disposition: Floor Baby Date of : 06/05/23 Time of : 15:12 Weeks of gestation at delivery: 39 gender: Female presentation: vertex position: Left Occiput Anterior Placenta delivery description: Spontaneous Cord Vessel Description: 3 Vessels, Clamped/Cut and Delayed Cord Clamping score one minute: 9 score five minutes: 9 Narrative: mother and baby skin to skin in stable condition
[2023-06-05] MEDS: OXYTOCIN 30 UNITS/NS 500 ML 30 UNITS/500 ML BAG 125 UNITS IV CONT (15:45)
--- NOTE | 2023-06-05 17:48 | OBPPTRN ---
Patient transferred to post room # 285 via wheelchair. Support person present. Oriented to unit, room, information board, rooming in, admission packet and security measures. Patient verbalizes understanding.
[2023-06-05] MEDS: WITCH HAZEL 40 PADS 1 PAD TOPICAL (20:19)
[2023-06-05] MEDS: BENZOCAINE 20% AER SPR (*SP) 56 GM CAN 1 SPRAY TOPICAL (20:19)
[2023-06-05] MEDS: IBUPROFEN 600 MG TABLET PO (20:27)
[2023-06-06 00:35] VITALS: BP 88/47; PULSE 72; RESP 16; TEMP 36.3
[2023-06-06 05:28] LABS: Hematocrit 34.3 % (37.0-47.0); Hemoglobin 10.9 g/dL (12.0-15.0)
--- NOTE | 2023-06-06 07:57 | PM.OBPNVD ---
OB - PN: Subj Subjective Date/time seen: 06/06/23 07:57 Patient comments: no complaints, pain well controlled, incisional pain, tolerating diet and flatus present OB - PN: Obj Data Labs 06/06/23 05:08 Labs: Laboratory Results - last 24 hr 06/05/23 06/06/23 06:11 05:08 Hgb 10.9 L Hct 34.3 L RPR Non-reactive OB - PN A/P Plan day: 1 Plan: routine care Comments: No problems, routine care Time Spent With Patient Time: Total time spent is greater than 50% in coordination of care (as documented) at patient's floor/unit and/or counseling patient: Exam Const: General: comfortable, no acute distress and alert Resp: Effort & Inspection: normal respiratory effort Auscultation: no crackles, no rales and no rhonchi Cardio: Rate: regular rate Heart sounds: no click, no murmurs and no rubs GI: Inspection: non-distended GI Palp: No Tenderness to palpation present (GI) Auscultation: normal bowel sounds Other: Incision - CDI Extrem: General: normal to inspection, no pedal edema and no calf tenderness
[2023-06-06 09:20] VITALS: BP 111/74; PULSE 76; RESP 18; TEMP 36.6
[2023-06-06] MEDS: MULTIVIT/MIN/PREN/FOL AC/IRON TABLET 1 TAB PO (09:23)
[2023-06-06] MEDS: IBUPROFEN 600 MG TABLET PO (09:23)
--- NOTE | 2023-06-06 09:57 | WPDANLDPN2 ---
Anes-Prog Note L&D Date/Time: 06/06/23 09:57 Comfortable throughout: labor and delivery Neuraxial method: epidural Epidural/Spinal procedure site: clean & non-tender Neuro status: Neuro function grossly intact. Cardiovascular status: normal Respiratory status: normal Airway patency: baseline Mental status: baseline Vital Signs: Last Vital Signs Temp 97.9 F 06/06/23 09:20 Pulse 76 06/06/23 09:20 Resp 18 06/06/23 09:20 BP 111/74 06/06/23 09:20 Pulse Ox 100 06/05/23 15:09 O2 Del Method Room Air 06/05/23 06:30 Pain score (VAS): 0 I/O: Intake & Output 06/05/23 06/06/23 06/06/23 23:59 07:59 15:59 Intake Total 300 Output Total 85 Balance 215 Patient feedback: Patient satisfied with anesthetic care.
--- NOTE | 2023-06-06 18:41 | PC.NURSE ---
Patient and discharge instructions given to mother and father. Questions answered. Mother, father and infant (in car seat) escorted to private vehical in [address].
--- NOTE | 2023-06-28 19:49 | PM.OBDSVD ---
DS: Admitting Diagnosis Discharge Date 06/06/23 Admitting Diagnosis term DS: Discharge Diagnosis Discharge Diagnosis (1) Term delivered: Code(s): O80 - Encounter for full-term uncomplicated delivery Status: Acute OB - DS: Summary OB Procedures : None OB Procedures Intrapartum: Spontaneous Vag Delivery OB Procedures: : None Peripartum Data Laceration Description: Other (Right periurthral) Episiotomy description: None Time Spent with Patient Time attestation: Total time spent providing and/or coordinating discharge services: Discharge Plan Discharge Attending physician on discharge: Kaylynn Andino Consulting providers: Mariana Motley; Olayinka Levine; Treva Araiza Discharging Clinician: Kaylynn Andino Patient Disposition: Home, Self-Care Activity: as tolerated Diet: as tolerated Discharge Instructions: Education: Mom and Baby Guide Given to: Mother Follow-Up: Call your delivering provider's office for an appointment to be seen in: 4 Weeks Mom and baby should come to the [facility] for the follow-up appointment. Appointment Date/Time: June 08, 2023 at 9:00 am What to expect at your follow-up visit: Physical Assessment Call [phone] if you are unable to keep your appointment time. BREAST CARE: * Wear a snug supportive bra. * For engorgement discomfort: Breast Feeding: * Apply warm moist washcloths * Express milk as needed to relieve engorgement * Wear loose clothing * For sore nipples: * Identify correct latch-on * Apply warm moist washcloths before and after nursing * Air dry nipples after nursing * May apply Lansinoh cream to nipples PERINEAL CARE: * Until bleeding stops, use your jayesh bottle after urinating * Change your pad frequently throughout the day * You may take sitz baths several times a day (fill your bathtub with warm water and soak for 20 minutes.) Do NOT bathe in the water * No tub baths until seen by your physician - You may shower ACTIVITY: * Rest as much as possible. * Do not exercise or lift anything heavier than your baby (such as laundry or other children.) * Avoid stairs or driving as much as possible. * Do not put anything into the vagina. No douching, tampons, or sexual activity until seen by physician. NOTIFY PHYSICIAN IF YOU HAVE ANY QUESTIONS OR IF ANY OF THE FOLLOWING SYMPTOMS OCCUR: * If your perineum becomes red, swollen, or more painful than what you have experienced in the hospital. * If your vaginal bleeding becomes foul smelling. * If your vaginal bleeding becomes more heavy than a period or if your bleeding changes from pink to bright red. However, you may pass an occasional walnut-sized clot once or twice for the first week . * If you experience a sharp, shooting pain in you calves. * If you discover a hard, reddened area on your breast or if you experience flu-like symptoms. DIET: * Eat regular, well-balanced meals. * Drink plenty of fluids daily. Stand Alone Forms: General Discharge Information Follow-up/Referrals: Kaylynn Andino MD [Physician] - 4 Weeks Discharge Medications: Continued prenat.vits,saeed,lsy-fede-snmjq Tablet Date of admission: 06/05/23 05:58 Primary Care Provider: Jesika,Arlene Langston Admitting Provider: Kaylynn Andino Attending physician on admission: Kaylynn Andino Condition: Stable
== END 2023-06-06 18:41 | disposition home or self-care (01) | DRG 560 ==
LOC: ANHLDR 06:01 → ANHOB2 18:00
PROVIDERS: Admitting Provider Obstetrics & Gynecology; PCP Nurse Practitioner Family; Referring Provider Advanced Practice Midwife; Visit Provider Obstetrics & Gynecology
DX: O71.82 Other specified trauma to perineum and vulva (principal); Z37.0 Single live birth; Z3A.39 39 weeks gestation of pregnancy
CPT/HCPCS: 36415; 85014; 85018; 85025; 86592; 86850; 86900; 86901; A9270; J2590; J2795; J7120

== ENCOUNTER 2023-10-08 20:06 | Emergency (ER) | payer OTHER, SELFPAY ==
[2023-10-08 20:34] VITALS: BP 128/91; PULSE 82; RESP 19; TEMP 36.3; O2SAT 100
== END 2023-10-08 22:41 | disposition left against medical advice (07) ==
PROVIDERS: PCP Nurse Practitioner Family
DX: H92.02 Otalgia, left ear (principal)
CPT/HCPCS: 99199

== ENCOUNTER 2024-12-25 03:53 | Emergency (ER) | payer OTHER, SELFPAY ==
[2024-12-25] VITALS (18 sets, daily range): BP systolic 113–122; BP diastolic 67–78; PULSE 76–110; RESP 9–19; TEMP 36.7; O2SAT 98–100
--- NOTE | ~2024-12-25 | US_ITS ---
EXAM: PELVIC ULTRASOUND HISTORY: r/o ectopic . Vaginal bleeding with positive beta hCG. Quantitative beta hCG measures 675. COMPARISON: None FINDINGS: UTERUS: 12.1 x 5.0 x 6.4 cm. The uterus is anteverted and anteflexed. The endometrial complex measures 8 mm. No intrauterine gestation is identified. RIGHT OVARY: The right ovary is unremarkable in echogenicity and increased in size measuring 5.4 x 4.1 x 2.3 cm. Dopplerable flow is identified. LEFT OVARY: The left ovary is unremarkable in echogenicity and size measuring 3.7 x 1.9 x 3.0 cm Dopplerable flow is identified. No free fluid is identified within the pelvis. IMPRESSION: No intrauterine gestation is identified. However, with a quantitative beta hCG of less than 2000 the likelihood of a intrauterine or an ectopi c gestation to be visualized with ultrasound is markedly limited. The right ovary is enlarged, but no gestational sac is visualized within the right ovary. The parench yma of the right ovary is unremarkable. Short-term follow-up is recommended Reviewed, dictated and finalized at location A. IMPRESSION: No intrauterine gestation is identified. However, with a quantitative beta hCG of less than 2000 the likelihood of a int rauterine or an ectopic gestation to be visualized with ultrasound is markedly limited. The right ovary is enlarged, but no gestational sac is visualized within the ri ght ovary. The parenchyma of the right ovary is unremarkable. Short-term follow-up is recommended
--- OUTSIDE RECORDS SUMMARY | 2024-12-25 03:56 | XMS_ITS | Data Portability ---
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 Karley Monteiro at [facility] Call office if worse, ER if life-threatening illness RTC in 4 months She voices understanding of plan and agrees [email or web address] Not available 04/10/2023 12:54:23 Plan of Treatment Reminders Order Date Submit Date Provider Last Modified By Organization Details Last Modified Time Details Appointments None recorded. Lab CBC w/ auto diff 2024 025 [facility] (Lab), [address] [place], [address], 5 08:12:59 CMP, serum or plasma 2024 025 [facility] (Lab), [address] [place], [address], 5 08:12:59 lipid panel, serum 2024 025 [facility] (Lab), [address] [place], [address], 5 08:12:59 TSH + free T4, serum 2024 025 [facility] (Lab), [address] [place], [address], 5 08:12:59 hepatitis C virus Ab, serum 2024 025 [facility] (Lab), [address] [place], [address], 5 07:39:26 HbA1c (hemoglobi n A1c), blood 2024 025 [facility] (Lab), [address] [place], [address], 5 08:12:59 Referral cardiothor acic vascular surgeon referral - Please call patient to schedule an appointmen t. Thank you. 2024 025 [email or web address] Mayco Shane, 1 [facility], [address], [place], [address], Ph [phone] 09:39:[address] referral - Please call patient to schedule an appointmen t. Thank you. 2024 025 [email or web address] [facility] Cardiology-[facility], [facility], [place], [address], 09:40:09 Procedures None recorded. Surgeries None recorded. Imaging None recorded. Medication Orders meclizine 25 mg tablet 2024 025 [facility] #[id number], [address], [place], [place], [id number], 5 11:41:52 albuterol sulfate HFA 90 mcg/actuat ion aerosol inhaler 2024 025 [facility] #[id number], [address], [place], [place], [id number], 11:41:53 ibuprofen 600 mg tablet 2024 025 [facility] #[id number], [address], [place], [place], [id number], 16:02:09 escitalopr am 10 mg tablet 2024 025 [facility] #[id number], [address], [place], [place], [id number], 16:02:08 Patient TargetsNo targets recorded. Patient Instructions Encounter Date Encounter Id Patient Instructions Last Modified By Organization Details Last Modified Time 08/25/2024 [id number] Follow up in 3 months Obtain labs Tests: Referral: [facility] [place] [facility] Recommend: Not available 08/25/2024 15:58:23 10/20/2024 [id number] Follow up in 3 months Prescriptions sent to pharmacy Tests: Referral: Recommend: Not available 10/20/2024 11:41:37 Reason for Referral Cardiothoracic Vascular Surg jerry Referral for Pericardial cyst Please call patient to schedule an appointment. Thank you. 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 Thank you. Referring Physician: Azra Rios Internal Medicine, Encounter Date: 08/25/2024 Results Created Date Observation Date Name Description Value Unit Range Abnormal Flag Note LastModifiedBy Organization Detail LastModifiedTime 09/19/1909/19/2022 URINA LYSIS COMPL ETE/I RIS W/RFX color yellow Not Available [facility] (Lab) [address] [place], [address], 09/19/2022 18:20:29 09/19/19 23 09/19/2022 URINA LYSIS COMPL ETE/I RIS W/RFX appear clear Not Available [facility] (Lab) [address] [place], [address], 09/19/2022 18:20:29 09/19/19 23 09/19/2022 URINA LYSIS COMPL ETE/I RIS W/RFX specific gravity 1.031 1.001- 1.030 high Not Available [facility] (Lab) [address] [place], [address], 09/19/2022 18:20:29 09/19/19 23 09/19/2022 URINA LYSIS COMPL ETE/I RIS W/RFX pH 6.0 pH_un its 5.0-9. 0 Not Available [facility] (Lab) [address] [place], [address], 09/19/2022 18:20:29 09/19/19 23 09/19/2022 URINA LYSIS COMPL ETE/I RIS W/RFX leukocytes negati ve ksenia/u L negati ve- Not Available [facility] (Lab) [address] [place], [address], 09/19/2022 18:20:29 09/19/19 23 09/19/2022 URINA LYSIS COMPL ETE/I RIS W/RFX nitrite negati ve negati ve- Not Available [facility] (Lab) [address] [place], [address], 09/19/2022 18:20:29 09/19/19 23 09/19/2022 URINA LYSIS COMPL ETE/I RIS W/RFX protein 10 mg/dL negati ve- abnormal Not Available [facility] (Lab) [address] [place], [address], 09/19/2022 18:20:29 09/19/19 23 09/19/2022 URINA LYSIS COMPL ETE/I RIS W/RFX glucose normal mg/dL normal - Not Available [facility] (Lab) [address] [place], [address], 09/19/2022 18:20:29 09/19/19 23 09/19/2022 URINA LYSIS COMPL ETE/I RIS W/RFX ketones negati ve mg/dL negati ve- Not Available [facility] (Lab) [address] [place], [address], 09/19/2022 18:20:29 09/19/19 23 09/19/2022 URINA LYSIS COMPL ETE/I RIS W/RFX urobilinogen normal mg/dL normal - Not Available [facility] (Lab) [address] [place], [address], 09/19/2022 18:20:29 09/19/19 23 09/19/2022 URINA LYSIS COMPL ETE/I RIS W/RFX bilirubin negati ve mg/dL negati ve- Not Available [facility] (Lab) [address] [place], [address], 09/19/2022 18:20:29 09/19/19 23 09/19/2022 URINA LYSIS COMPL ETE/I RIS W/RFX blood negati ve mg/dL negati ve- Not Available [facility] (Lab) [address] [place], [address], 09/19/2022 18:20:29 09/19/19 23 09/19/2022 URINA LYSIS COMPL ETE/I RIS W/RFX white blood cells 0-8 /i??h pfi?? 0-8 Not Available [facility] (Lab) [address] [place], [address], 09/19/2022 18:20:29 09/19/19 23 09/19/2022 URINA LYSIS COMPL ETE/I RIS W/RFX red blood cells 0-4 /i??h pfi?? 0-4 Not Available [facility] (Lab) [address] [place], [address], 09/19/2022 18:20:29 09/19/19 23 09/19/2022 URINA LYSIS COMPL ETE/I RIS W/RFX bacteria none Not Available [facility] (Lab) [address] [place], [address], 09/19/2022 18:20:29 09/19/19 23 09/19/2022 URINA LYSIS COMPL ETE/I RIS W/RFX mucous occasi onal /i??l pfi?? abnormal Not Available [facility] (Lab) [address] [place], [address], 09/19/2022 18:20:29 09/19/19 23 09/19/2022 URINA LYSIS COMPL ETE/I RIS W/RFX squamous epithelial many /i??l pfi?? abnormal Not Available [facility] (Lab) [address] [place], [address], 09/19/2022 18:20:29 09/19/19 23 09/19/2022 URINA LYSIS COMPL ETE/I RIS W/RFX hyaline cast occasi onal /i??l pfi?? none seen- abnormal Not Available [facility] (Lab) [address] [place], [address], 09/19/2022 18:20:29 08/28/19 23 08/28/2022 jenise r monit or No observ ation record ed. [id number] [facility] [address], [place], [address], 10/02/2022 01:54:54 09/19/19 23 09/19/2022 XR, thora cic spine , 3 view [facility] [address] [place] [address] Patien t Name: PIETER GRAVES Access ion #: [id number] Sex: F : 2000 3 Locati on: MOP Attend ing Physic agustín: MXA BAJWA Orderi ng Physic agustín: MAX BAJWA Exam Date: 023 4:09 PM Exam Name: XR T SPINE 3V Admitt ing Diagno sis(es ): RADIOL OGY REPORT - FINAL EXAM: XR T SPINE 3V HISTOR Y: pain in thorac ic spine 22-yea r-old female with back pain, no known injury . COMPAR SPRING: None availa ble. TECHNI QUE: Three views of the thorac ic spine were perfor med. FINDIN GS: No fractu re, listhe sis, or scolio sis are identi fied about the thorac ic spine. No signif icant degene rative change s. Surgic al clips in the right upper quadra nt are consis tent with prior cholec ystect subha. IMPRES MARII: No fractu re or signif icant degene rative change s about the thorac ic spine. Page 1 of 2 [facility] t Name: PIETER GRAVES Access ion #: [id number] Sex: F : 2000 3 Exam Date: 023 4:09 PM Exam Name: XR T SPINE 3V Admitt ing Diagno sis(es ): Create d and electr onical ly signed by: Gray montana MD Signed Date: 023 8:02 PM (CT) Dictat ed by: Gray montana MD DD: 023 8:02 PM (CT) DT: 023 8:02 PM (CT) Page 2 of 2 [id number] [facility] (Imaging) [address] [place], [address], 10/02/2022 01:54:54 09/19/19 23 09/19/2022 XR, lumba r spine [facility] [address] [place] [address] [phone] [facility] t Name: PIETER GRAVES Access ion #: [id number] Sex: F : 2000 3 Locati on: MOP Attend ing Physic agustín: MAX BAJWA Orderi ng Physic agustín: MAX BAJWA Exam Date: 023 4:22 PM Exam Name: XR L SPINE 4V+ Admitt ing Diagno sis(es ): RADIOL OGY REPORT - FINAL EXAM: XR L SPINE 4V+ HISTOR Y: Low back pain 22-yea r-old female with low back pain, no known injury . COMPAR SPRING: None availa ble. TECHNI QUE: Five views of the lumbar spine were perfor med. FINDIN GS: No fractu re or listhe sis of the lumbar spine. No signif icant degene rative change s. The obliqu e films do not demons trate spondy lolysi s. Surgic al clips in the right upper quadra nt are consis tent with prior cholec ystect subha. IMPRES MARII: No fractu re or signif icant degene rative change s about the lumbar spine. Page 1 of 2 [facility] Román t Name: PIETER GRAVES Access ion #: [id number] Sex: F : 2000 3 Exam Date: 023 4:22 PM Exam Name: XR L SPINE 4V+ Admitt ing Diagno sis(es ): Create d and electr onical ly signed by: Gray montana MD Signed Date: 7:58 PM (CT) Dictat ed by: Gray montana MD DD: 7:58 PM (CT) DT: 7:58 PM (CT) Page 2 of 2 [id number] [facility] ([facility]) [address] [place], [address], 10/02/2022 01:54:54 09/16/19 24 09/16/2023 US, echoc ardio gram No observ ation record ed. [facility] [address], [place], [address], 11/12/2023 09:28:21 Result Notes None recorded. Problems Name Problem SNOMED Code Status Onset Date Resolution Date Notes Provider Name and Address Organization Details Recorded Time Intermittent palpitations 081930999 Active 2022 Not Available [facility] 3 15:35:35 Atypical chest pain 047815259 Active 2022 Not Available [facility] 3 15:35:35 Generalized anxiety disorder 32309732 Active 2022 Azra Rios APRN [address], [address], [place], [address] , [employer] 5 10:18:14 Thoracic back pain 459344403 Active 2022 Not Available [facility] 3 15:35:35 Low back pain 328698834 Active 2022 Not Available [facility] 3 15:35:35 Urinary symptoms 641161828 Active 2022 Not Available [facility] 3 15:35:35 Sciatica 14778110 Active 2022 Azra Rios APRN [address], [address], [place], [address] , [employer] 5 10:18:23 Pericardial effusion 069438346 Active 2024 Azra Rios APRN [address], [address], [place], [address] , [employer] 5 15:48:35 Pericardial cyst 568975717 Active 2024 Azra Rios APRN [address], [address], [place], [address] , [employer] 5 15:48:48 Fever 917441584 Active [address], [address], [place], [address] , [facility] 16:00:48 Lightheadedne ss 252179982 Active 2024 Azra Rios APRN [address] [facility] [address], [place], [address] , [facility] 5 11:34:36 Dyspnea 574432515 Active 2024 Azra Rios APRN [address] [facility] [address], [place], [address] , [facility] 5 11:36:50 Problem Notes None recorded. Procedures Surgical History Date Name Laterality Status Provider Name and Address Organization Details Recorded Time Cholecystectomy completed Not Available [employer] 10/02/2022 01:53:05 Imaging Results Imaging Date Name Status LastModified by Organization Details LastModified Time 08/28/2022 holter monitor completed [id number] [facility] [address], [place], [address], 10/02/2022 01:54:54 09/19/2022 XR, thoracic spine, 3 view completed [id number].[id number] [facility] ([facility]) [address] [place], [address], 10/02/2022 01:54:54 09/19/2022 XR, lumbar spine completed [id number].[id number] [facility] ([facility]) [address] [place], [address], 10/02/2022 01:54:54 09/16/2023 US, echocardiogram completed [facility] [address], [place], [address], 11/12/2023 09:28:21 Procedure Notes None recorded. Medical Equipment None Reported. Allergies Allergen ID Allergen Name Allergen Category Reaction Reaction Severity Criticality Documentation Date Start Date Code Code System Note Provider Name and Address Organization Details Recorded Time 42503 metoclopr amide Not available Not available Not available Not available 08/23/2024 6915 RxNorm Other react ions and sever ities : 'Adve rse react ion to subst ance' . Azra Rios, HEARING IMPAIRED TEACHER [address] [facility], [facility] [address], [place], [address] , [facility] [employer] 10:15:09 Medications Name Sig Start Date Stop Date Status Note LastModified by Organization Details LastModified Time amoxicillin 500 mg capsule 10/20 completed Not Available Not Available Not Available clindamycin HCl 300 mg capsule TAKE 1 CAPSULE BY MOUTH THREE TIMES DAILY 08/25 completed Not Available Not Available Not Available cetirizine 10 mg tablet active Not Available Not Available Not Available ibuprofen 800 mg tablet TAKE 1 TABLET BY MOUTH EVERY 6 HOURS NEEDED FOR TOOTH PAIN 08/25 completed Not Available Not Available Not Available fluconazole 150 mg tablet TAKE 1 TABLET BY MOUTH EVERY DAY 08/15 completed Not Available Not Available Not Available meloxicam 7.5 mg tablet take 1 PO BID PRN WITH FOOD 11/21 completed Not Available Not Available Not Available ciprofloxac in 0.3 % eye drops PLACE 2 DROPS INTO AFFECTED EAR(S) 2 TIMES PER DAY FOR 7 DAYS 08/25 completed Not Available Not Available Not Available meclizine 25 mg tablet TAKE 1 TABLET BY MOUTH THREE TIMES DAILY NEEDED active Not Available Not Available No t Available cephalexin 500 mg capsule TAKE 1 CAPSULE BY MOUTH EVERY 6 HOURS FOR 5 DAYS 11/21 completed Not Available Not Available Not Available ibuprofen 600 mg tablet TAKE 1 TABLET BY MOUTH THREE TIMES DAILY NEEDED active Not Available Not Available No t Available albuterol sulfate HFA 90 mcg/actuati on aerosol inhaler INHALE 2 PUFFS BY MOUTH EVERY 4 HOURS NEEDED active Not Available Not Available No t Available amoxicillin 875 mg-potassiu m clavulanate 125 mg tablet TAKE 1 TABLET BY MOUTH EVERY 12 HOURS FOR 10 DAYS 08/25 completed Not Available Not Available Not Available escitalopra m 10 mg tablet TAKE 1 TABLET BY MOUTH EVERY DAY AT BEDTIME active Not Available Not Available No t Available escitalopra m 5 mg tablet Take 1 tablet every day by oral route. active Not Available Not Available No t Available nitrofurant oin monohydrate /macrocryst als 100 mg capsule TAKE 1 CAPSULE BY MOUTH TWICE DAILY 08/25 completed Not Available Not Available Not Available 08/23 completed Not Available Not Available Not Available Vitals Date Recorded Body mass index (BMI) Body height Oxygen saturation Oxygen saturation in Arterial blood by Pulse oximetry Heart rate Body temperature Body weight Systolic blood pressure Diastolic blood pressure Provider Name and Address Organization Details Last Updated DateTime 3 21.4 kg/m2 160.02 cm 98 % 98 % 88 /min 97.8 [degF] 32915.6 8 g 112 mm[Hg] 72 mm[Hg] Not Available [facility] 3 01:53:46 Date Recorded Body height Body mass index (BMI) Body weight Body temperature Heart rate Oxygen saturation Oxygen saturation in Arterial blood by Pulse oximetry Systolic blood pressure Diastolic blood pressure Provider Name and Address Organization Details Last Updated DateTime 3 160.02 cm 23.2 kg/m2 13133.6 g 97.6 [degF] 78 /min 99 % 99 % 118 mm[Hg] 78 mm[Hg] Doretha Carvalho MA [facility] [employer] [facility] 3 16:38:36 Date Recorded Body height Body mass index (BMI) Body weight Body temperature Heart rate Oxygen saturation Oxygen saturation in Arterial blood by Pulse oximetry Systolic blood pressure Diastolic blood pressure Provider Name and Address Organization Details Last Updated DateTime 3 160.02 cm 28.3 kg/m2 30942.7 8 g 97.8 [degF] 94 /min 98 % 98 % 122 mm[Hg] 74 mm[Hg] Doretha Carvalho MA [employer] [facility] [employer] [facility] 3 10:19:44 Date Recorded Body weight Heart rate Oxygen saturation Oxygen saturation in Arterial blood by Pulse oximetry Body temperature Systolic blood pressure Diastolic blood pressure Provider Name and Address Organization Details Last Updated DateTime 5 97859.4 9 g 87 /min 99 % 99 % 98.2 [degF] 110 mm[Hg] 64 mm[Hg] Mary Alice Heredia MA [employer] [facility] [employer] [facility] 5 11:17:22 Date Recorded Body mass index (BMI) Body height Provider Name and Address Organization Details Last Updated DateTime 10/20/2024 21.1 kg/m2 160.[address], [place], [address], [place] [facility] [employer] [facility] 10/20/2024 11:25:16 Social History Question Answer Notes LastModified by Organizat ion Details LastModified Time Tobacco Smoking Status Former Smoker Not Available [facility] 10/02/2022 01:52:52 What Is Your Level Of Caffeine Consumption? Occasional [id number] Information not available 10/02/2022 In The 14 Days Before Symptom Onset, Have You Had Close Contact With A Laboratory-confir med COVID-19 While That Case Was Ill? No [id number].[id number] 3765 Information not available 10/02/2022 In The 14 Days Before Symptom Onset, Have You Had Close Contact With A Person Who Is Under Investigation For COVID-19 While That Person Was Ill? No MIGRATION.[id number] 4914 Information not available 10/02/2022 What Type Of Diet Are You Following? REGULAR MIGRATION.636673 4657 Information not available 10/02/2022 What Is The Highest Grade Or Level Of School You Have Completed Or The Highest Degree You Have Received? [id number] MIGRATION.264119 3167 Information not available 10/02/2022 Have There Been Any Changes To Your Family Or Social Situation? No MIGRATION.[id number] 4645 Information not available 10/02/2022 What Is The Fluoride Status Of Your Home? Unknown MIGRATION.[id number] 6623 Information not available 10/02/2022 Are There Any Guns Present In Your Home? Yes MIGRATION.598912 6222 Information not available 10/02/2022 Do You Use Insect Repellent Routinely? No MIGRATION.406518 6010 Information not available 10/02/2022 [facility].538458 3175 Information not available 10/02/2022 What Was The Date Of Your Most Recent Tobacco Screening? 10/20/2024 Information not available 10/20/2024 Do You Have Any Pets? Yes MIGRATION.916987 0463 Information not available 10/02/2022 Do You Use Your Seat Belt Or Car Seat Routinely? Yes Information not available 10/20/2024 Do You Have Smoke And Carbon Monoxide Detectors In Your Home? Yes MIGRATION.763793 4523 Information not available 10/02/2022 Are You Passively Exposed To Smoke? Yes MIGRATION.399867 5128 Information not available 10/02/2022 Are There Any Smokers In Your House? No MIGRATION.962313 8167 Information not available 10/02/2022 Do You Use Sunscreen Routinely? Yes MIGRATION.787752 5608 Information not available 10/02/2022 Have You Recently Traveled Abroad? No MIGRATION.929331 3024 Information not available 10/02/2022 Do You Have Any Dietary Restrictions? No MIGRATION.216779 5267 Information not available 10/02/2022 Sex: Female Functional Status Question Answer Note LastModified by Organizat ion Details LastModified Time Do you use any illicit or recreational drugs? use to smoke cannabis. MIGRATION.648913 9626 Information not available 10/02/2022 Do you or have you ever used any other forms of tobacco or nicotine? No MIGRATION.636021 7131 Information not available 10/02/2022 What is your level of alcohol consumption? 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 Occasional MIGRATION.525791 7073 Information not available 10/02/2022 Mental Status Question Answer Note LastModified by Organizat ion Details LastModified Time Do you feel stressed (tense, restless, nervous, or anxious, or unable to sleep at night)? [id number] Information not available 10/02/2022 Family History Nothing Reported. Medical History No medical history recorded. Gynecological HistoryNo gynecological history recorded. Obstetrics History GPAL:G 0 P 0 0 0 0 Immunizations Vaccine Type Date Status Note Provider Nam e and Address Organization Details Recorded Time Influenza, split virus, quadrivalent, preservative 7 completed Azra Rios APRN [address] [facility], [facility] [address], [place], [address], [facility] [employer] [facility] 08/23/2024 10:14:57 Hib, unspecified formulation 0 completed Azra Rios APRN [address], [address], [place], [address], [facility] [employer] [facility] 08/23/2024 10:14:57 Hib, unspecified formulation 0 completed Azra Rios APRN [address], [address], [place], [address], [place] [facility] 08/23/2024 10:14:57 Hib, unspecified formulation 0 completed Azra Rios APRN [address], [address], [place], [address], [place] [facility] 08/23/2024 10:14:57 HPV9 5 completed Azra Rios APRN [address], [address], [place], [address], [place] [facility] 08/23/2024 10:14:57 IPV 0 completed Azra Rios APRN [address], [address], [place], [address], [place] [facility] 08/23/2024 10:14:57 IPV 1 completed Azra Rios APRN [address], [address], [place], [address], [place] [facility] 08/23/2024 10:14:57 IPV 0 completed Azra Rios APRN [address], [address], [place], [address], [place] [facility] 08/23/2024 10:14:57 IPV 0 completed Azra Rios APRN [address], [address], [place], [address], [place] [facility] 08/23/2024 10:14:57 MMR 1 completed Azra Rios APRN [address], [address], [place], [address], [place] [facility] 08/23/2024 10:14:57 MMR 5 completed Azra Rios APRN [address], [address], [place], [address], [place] [facility] 08/23/2024 10:14:57 Tdap 1 completed Azra Rios APRN [address], [address], [place], [address], [place] [facility] 08/23/2024 10:14:57 Tdap 7 completed Azra Rios APRN [address], [address], [place], [address], [place] [facility] [facility] 08/23/2024 10:14:57 Tdap 1 completed Azra Rios APRN [address], [address], [place], [address], [place] [facility] 08/23/2024 10:14:57 varicella 1 completed Azra Rios APRN [address], [address], [place], [address], [place] [facility] 08/23/2024 10:14:57 varicella 5 completed Azra Rios APRN [address], [address], [place], [address], [place] [facility] 08/23/2024 10:14:57 varicella 7 completed Azra Rios APRN [address], [address], [place], [address], [place] [facility] 08/23/2024 10:14:57 HPV, quadrivalent 4 completed Azra Rios APRN [address], [address], [place], [address], [place] [facility] 08/23/2024 10:14:57 Hep B, adolescent or pediatric 0 completed Azra Rios APRN [address], [address], [place], [address], [place] [facility] 08/23/2024 10:14:57 Hep B, adolescent or pediatric 0 completed Azra Rios APRN [address], [address], [place], [address], [place] [facility] 08/23/2024 10:14:57 Hep B, adolescent or pediatric 0 completed Azra Rios APRN [address], [address], [place], [address], [employer] [facility] 08/23/2024 10:14:57 Hep A, ped/adol, 2 dose 4 completed Azra Rios APRN [address], [address], [place], [address], [employer] [facility] 08/23/2024 10:14:57 Hep A, ped/adol, 2 dose 5 completed Azra Rios APRN [address], [address], [place], [address], [employer] [facility] 08/23/2024 10:14:57 Hib (PRP-OMP) 1 completed Azra Rios APRN [address], [address], [place], [address], [employer] [facility] [employer] 08/23/2024 10:14:57 meningococcal MCV4P 4 completed Azra Rios APRN [address], [address], [place], [address], [employer] [facility] 08/23/2024 10:14:57 DTaP 5 completed Azra Rios APRN [address], [address], [place], [address], [facility] [employer] [facility] 08/23/2024 10:14:58 DTaP 0 completed Azra Rios APRN [address], [address], [place], [address], [facility] [employer] [facility] 08/23/2024 10:14:58 DTaP 1 completed Azra Rios APRN [address], [address], [place], [address], [facility] [employer] [facility] [employer] [facility] 08/23/2024 10:14:58 DTaP 0 completed Azra Rios APRN [address], [address], [place], [address], [facility] [employer] [facility] [employer] [facility] 08/23/2024 10:14:58 DTaP 0 completed Azra Rios APRN [address], [facility] [address], [place], [address], [facility] [employer] [facility] [employer] [facility] 08/23/2024 10:14:58 Hep A-Hep B 6 completed Azra Rios APRN [address], [facility] [address], [place], [address], [facility] [employer] [facility] [employer] [facility] 08/23/2024 10:14:58 Hep A-Hep B 6 completed Azra Rios APRN [address], [address] [address], [place], [address], [facility] [employer] [facility] [employer] [facility] 08/23/2024 10:14:58 Hep A-Hep B 6 completed Azra Rios APRN [address], [place] [address], [place], [address], [facility] [employer] [facility] [employer] [facility] 08/23/2024 10:14:58 Tdap 3 completed Azra Rios APRN [address], [place] [address], [place], [address], [facility] [employer] [facility] [employer] [facility] 08/25/2024 15:30:35 Past Encounters Encounter ID Performer Location Encounter Start Date Encounter Closed Date Diagnosis/Indication Diagnosis SNOMED-CT Code Diagnosis ICD10 Code Diagnosis Note [id number] Pardeep castellanos MD [place] [place] [facility] [address] [facility], [facility] [address] [place] [address] 08/15/2022 00:00:00 08/15/2022 15:49:25 [id number] MD MAJOR [place] [place] [facility] [address] [facility], [address] [address] 09/19/2022 00:00:00 09/19/2022 17:12:41 [id number] Elizabeth Kate NP [facility] [address] [facility] [address] [address] 09/04/2022 00:00:00 09/17/2022 14:38:08 [id number] Pardeep castellanos MD [facility] [place] [facility] [address] [facility], [facility] [address] [place] [address] 11/21/2022 16:30:55 11/21/2022 16:49:16 Intermittent palpitations 523305333 R00.2 Now following cardiology - Dr. Rangel /p workup- all normal Atypical chest pain 1025 93042 R07.89 s/p cardiac workup as aboveER precaution s Generalize d anxiety disorder 89696056 F41.1 on Lexapro-sh e is aware of side effects, risks, and benefitsCa ll office if any change in mood or behaviordi d see psychiatry - Elizabeth at [facility], doesn't want to go backRecomm end counseling -name/numb ers provided, along with a 24 hour crisis lineOffere d IOP referral, she declinesSh e can commit to safety today, she agrees to go to ER or call 911 if she becomes unsafe 29426439 Z33.1 Continue PNV Continue following with OB Sciatica 83754617 M54.30 Now resolved after PT [id number] Pardeep castellanos MD [facility] [place] [facility] [address] [facility], [facility] [address] [place] [address] 04/10/2023 10:12:46 04/10/2023 10:47:17 Intermittent palpitations 531910047 R00.2 Now following cardiology - Dr. Rangel /p workup- all normal Atypical chest pain 1025 96707 R07.89 s/p cardiac workup as aboveER precaution s Generalize d anxiety disorder 91951308 F41.1 OB stopped her lexaproCal l office if any change in mood or behaviordi d see psychiatry - Elizabeth at [facility], doesn't want to go backRecomm end counseling -name/numb ers provided, along with a 24 hour crisis lineShe can commit to safety today, she agrees to go to ER or call 911 if she becomes unsafe [id number] Z33.1 Continue PNVContinu e following with OBTdap will need to come from pharmacy or health dept due to her insurance Sciatica 29749026 M54.30 Now resolved after PT [id number] Pardeep castellanos MD [facility] Internal Med [facility] [address] [facility], [address] [address] 08/25/2024 14:58:03 08/25/2024 16:07:26 Diabetes mellitus screening 746859150 Z13.1 Hyperlipid emia screening 637766905 Z13.220 Screening for disorder 866737245 Z13.9 Thyroid di sorder screening 589123162 Z13.29 Hepatitis C screening 41 8928335 Z11.59 Pericardial cyst 3125903 02 I31.8 Generalize d anxiety disorder 92870857 F41.1 Fever 681906644 R50.9 [id number] Pardeep castellanos MD [facility] Internal Med [facility] [address] [address] 10/20/2024 11:01:51 10/20/2024 11:46:38 Lightheadedness 959567009 R42 Dyspnea 280649161 R06.00 Health Concerns Section Related Observation LastModified by Organization Detai ls LastModified Time None Recorded Concern Status LastModified by Organization Details LastModified Time None Recorded Advance Directives Directive None Recorded Payers Encounter Date Sequence Insurance Name Policy Number Policy Willett Covered Member ID Willett Member ID Guarantor Name 11/21/2022 1 [facility] (MEDICAID HMO) [id number] Joann Aguirreer [id number] Joann Graves 04/10/2023 1 [facility] (MEDICAID HMO) [id number] Joann Graves [id number] Joann Graves 08/25/2024 1 [facility] (MEDICAID HMO) [id number] Joann Graves [id number] Joann Graves 10/20/2024 1 [facility] (MEDICAID HMO) [id number] Joann Aguirreer [id number] Joann Graves Notes Date Note Type Note Provider Name and Address Organization Details Recorded Time 11/21/2022 text/html Joann presents today for follow up. She is now approximately 11 weeks . She is following Dr. Karley Monteiro at [facility]. She is taking her vitamin. We had sent her to physical therapy for her thoracic back pain and sciatica. She tells me that is now resolved. She is still doing her exercises at home daily. Her mood remains stable on the Lexapro 10 mg. She feels like this is a good dose for her. She tells me for the 1st time she feels like the mood is actually really evened out. She denies any SI or HI today. She is still not interested in counseling at this time. She did see Psychiatry once but since she is doing well she wants me to maintain her script for her mood meds if possible. JENNY Person [address], [address], [place], [address], [employer] 11/21/2022 17:08:00 04/10/2023 text/html Joann presents today for follow up. She is 31 weeks . She is following with Karley Monteiro. She reports that her OB had her stop her Lexapro. She reports her mood has been stable since she has been off the medication. She has noted she has a little bit more emotional but she feels like she is coping with this well. She denies any SI or HI today. She is taking her vitamin. She still needs to get her Tdap vaccine. She has not had any further issues with the intermittent palpitations or the sciatica with this . JENNY Person [address], [address], [place], [address], [employer] 04/10/2023 13:40:13 08/25/2024 text/html Joann presents today to establish care. Patient was recently in the ED at [facility] for chest pain and respiratory infection. She said that they did a CT scan and EKG, Azra Rios APRN [address], [address], [place], [address], [employer] 08/25/2024 16:02:45 10/20/2024 text/html Joann presents today for 3 month follow up. She states that she has been having some issues with dizziness. She also states that she has had pain in her joints. She stood up in the office and pushed on her hips and her hips/back had and audible pop. 08/25/2024Joann presents today to establish care. Patient was recently in the ED at [facility] for chest pain and respiratory infection. She said that they did a CT scan and EKG, Azra Rios APRN [address] [facility], [facility] [address], [place], [address], [facility] [employer] [facility] 10/20/2024 11:41:47 OBGyn Episode No OBEpisode recorded.
--- OUTSIDE RECORDS SUMMARY | 2024-12-25 03:56 | XMS_ITS | Data Portability ---
Author Organization [facility] Address [address] [place] [address] Assessment Encounter Date Assessment Date Assessment LastModified by Organization Details LastModified Time 05/22/2023 05/22/2023 Patient is _37__weeks . Discussed plan. Not available 05/22/2023 12:35:00 05/27/2023 05/27/2023 Patient is __38_weeks . Discussed plan. Not available 05/27/2023 12:58:40 06/03/2023 06/03/2023 Patient is _39__weeks . Discussed plan. Not available 06/03/2023 12:58:32 11/15/2024 11/15/2024 Annual gynecological exam performed. Patient will come back in a year unless there are new symptoms. Not available 11/15/2024 16:36:17 Plan of Treatment Reminders Order Date Submit Date Provider Last Modified By Organization Details Last Modified Time Details Appointments U/S OB SNEAK PEAK 2024 01:00P M ULTRASOUND Not available Not available Not available OB SCREEN 2024 01:30P M Mariana Motley CNM Not available Not available Not available Lab hbcab (hepati tis B core Ab) igm, serum 2024 025 [facility] (Lab), [address], [place], [address], 11/16/2024 17:05:54 HBsAg (hepati tis B surface Ag), serum 2024 025 [facility] (Lab), [address], [place], [address], 11/16/2024 17:05:52 hepatit is C virus Ab, serum 2024 025 [facility] (Lab), [address], [place], [address], 11/16/2024 17:05:53 HIV 1+2 AB + HIV 1 p24 Ag, qualita tive immunoa ssay, serum 2024 025 [facility] (Lab), [address], [place], [address], 11/16/2024 17:05:52 RPR (rapid plasma reagin) , serum 2024 025 [facility] (Lab), [address], [place], [address], 11/16/2024 17:05:53 urinaly sis, dipstic k [address], [facility] [address], [address], [place], [address], 11/15/2024 18:39:47 Referral None recorde d. Procedures None recorde d. Surgeries None recorde d. Imaging None recorde d. Medication Orders Lexapro 10 mg tablet 2022 023 [id number], [address], [place], [place], [id number], 07/09/2023 09:35:15 Patient TargetsNo targets recorded. Patient InstructionsNo instructions recorded. Reason for Referral None Reported. Results Created Date Observation Date Name Description Value Unit Range Abnormal Flag Note LastModifiedBy Organization Detail LastModifiedTime 11/16/1911/15/2024 HEPAT ITIS B SURFA CE ANTIG EN hepatitis B surface antigen Non-re active non-re active This assay was perfo rmed using [employer] n reage nts and test kits. Value s obtai holden with other assay metho ds or kits canno t be used inter wright eably . Not Available [facility] (Lab) [address], [place], [address], 11/16/2024 17:05:52 11/16/19 25 11/15/2024 HIV 1/2 ANTIG EN/AN TIBOD Y, REFLE X CONFI RMATI ON HIV antigen/anti body Nonrea ctive nonrea ctive HIV-1 antig en and HIV-1 /HIV- 2 antib odies were not detec galileo. No labor atory evide nce of HIV infec tion. Not Available [facility] (Lab) [address] [place], [address], 11/16/2024 17:05:52 11/16/19 25 11/15/2024 HEPAT ITIS C ANTIB JEANE SCREE N, REFLE X TO CONFI RMATI ON hepatitis C antibody Non-re active non-re active Antib odies to HCV Not Detec galileo, does not exclu de the possi bilit y of expos ure to HCV. Not Available [facility] (Lab) [address], [place], [address], 11/16/2024 17:05:53 11/16/19 25 11/15/2024 RPR SCREE N, REFLE X TITER /CONF IRMAT ION RPR qualitative Nonrea ctive nonrea ctive Not Available [facility] (Lab) [address] [place], [address], 11/16/2024 17:05:53 11/16/1911/15/2024 HEPAT ITIS B CORE, IGM hepatitis B core IgM antibody Non-re active non-re active IgM anti- HBc not detec galileo. Does not exclu de the possi bilit y of expos ure to or infec tion with HBV. Test Perfo rmed by: [facility] [address] [place] [address] Not Available [facility] (Lab) [address], [place], [address], 11/16/2024 17:05:54 11/16/19 25 11/15/2024 urina lysis , dipst ick Leukocytes trace Not Available [facility] [address], [place], [address], 11/15/2024 18:38:54 11/16/19 25 11/15/2024 urina lysis , dipst ick Nitrite - Not Available [place] [address], [place], [address], 11/15/2024 18:38:54 11/16/19 25 11/15/2024 urina lysis , dipst ick Urobilinogen normal Not Available [facility] roxy [address], [place], [address], 11/15/2024 18:38:54 11/16/19 25 11/15/2024 urina lysis , dipst ick Protein ++ Not Available [place] [address], [place], [address], 11/15/2024 18:38:54 11/16/19 25 11/15/2024 urina lysis , dipst ick pH 9 Not Available [place] [address], [place], [address], 11/15/2024 18:38:54 11/16/19 25 11/15/2024 urina lysis , dipst ick Specific [place] 1.005 Not Available [facility] [address], [place], [address], 11/15/2024 18:38:54 11/16/19 25 11/15/2024 urina lysis , dipst ick Ketone - Not Available [place] [address], [place], [address], 11/15/2024 18:38:54 11/16/19 25 11/15/2024 urina lysis , dipst ick Bilirubin - Not Available [facility] [address], [place], [address], 11/15/2024 18:38:54 11/16/19 25 11/15/2024 urina lysis , dipst ick Glucose Normal Not Available [place] [address], [place], [address], 11/15/2024 18:38:54 11/16/1911/15/2024 urina lysis , dipst ick Appearance cloudy Not Available [facility] [address], [place], [address], 11/15/2024 18:38:54 11/16/19 25 11/15/2024 urina lysis , dipst ick Color yellow Not Available [place] [address], [place], [address], 11/15/2024 18:38:54 04/27/2004/27/2023 US, obste tric, follo w-up No observ ation record ed. [facility] [address], [place], [address], 04/27/2023 13:46:52 04/27/2004/27/2023 US, obste tric, follo w-up No observ ation record ed. NORA Ryan [address], [place], [address], 06/25/2023 03:35:19 Result Notes None recorded. Problems Name Problem SNOMED Code Status Onset Date Resolution Date Notes Provider Name and Address Organization Details Recorded Time Pregnanc y 23030737 Completed 202008/26/2021 Noni Marcus null, [facility] 3 12:46:06 Venous escoto 015484089 Completed resolved Ana Lilia arthurl null, [facility] 2 12:55:17 Marginal insertio n of umbilica l cord 20468398 Completed serial growth Ana Lilia arthurl null, [facility] 2 12:55:17 Group B Streptoc occus carrier 75884062618 03 Completed Ana Lilia arthurl null, [facility] 2 12:55:17 Pregnanc y 79598998 Completed 202206/08/2023 Noni Marcus [facility], [facility] 3 12:46:06 Anxiety in pregnanc y 91848496848 109 Active lexapro, weaned off 20w- wants to restart in hospital after delivery Noni Marcus [facility], [facility] 3 12:45:59 Anxiety in pregnanc y 66257639546 109 Completed lexapro, weaned off 20w- wants to restart in hospital after delivery Noni laird, [facility] 3 12:45:59 Placenta circumva llata 5190669 Active growth Noni Marcus null, [facility] 3 12:45:59 Placenta circumva llata 4013576 Completed growth Noni Marcus null, [facility] 3 12:45:59 Problem Notes None recorded. Procedures Surgical History Date Name Laterality Status Provider Name and Address Organization Details Recorded Time 11/19/19 23 Date of Last Pap Smear completed Savanna Wilson [facility] 04/02/2023 18:08:39 09/28/19 18 Cholecystectomy completed Yessica Faustin [facility] 06/26/2021 16:42:10 Laparoscopy completed Savanna Wilson [facility] 05/13/2023 12:27:26 Imaging Results Imaging Date Name Status LastModified by Organiz ation Details LastModified Time 04/27/2023 [facility] [address], [place], [address], 04/27/2023 13:46:52 04/27/2023 US, obstetric, follow-up completed NORA Shelby [address], [place], [address], 06/25/2023 03:35:19 Procedure Notes None recorded. Medical Equipment None Reported. Allergies Allergen ID Allergen Name Allergen Category Reaction Reaction Severity Criticality Documentation Date Start Date Code Code System Note Provider Name and Address Organization Details Recorded Time 73144 Latex (substanc e) environme nt,medica tion rash moderate Not available 06/26/2021 68910 8007 SNOMED Yessica Faustin [facility] 14:06:35 50094 honey preparati on food,medi cation hives Not available Not available 06/26/2021 51562 9 RxNorm Yessica Faustin [facility] 14:06:53 06957 Reglan medicatio n Not available Not available Not available 11/15/2024 9230 RxNorm Lakshmi Reich [facility] 5 16:42:34 Medications Name Sig Start Date Stop Date Status Note LastModified by Organization Details LastModified Time multivitamin tablet 11/18 completed Not Available Not Available Not Available cyclobenzapr ine 10 mg tablet 12/23 completed Not Available Not Available Not Available amoxicillin 500 mg capsule TAKE 1 CAPSULE BY MOUTH TWICE DAILY FOR 7 DAYS 11/15 completed Not Available Not Available Not Available doxycycline hyclate 100 mg capsule TAKE 1 CAPSULE BY MOUTH TWICE DAILY FOR 7 DAYS active Not Available Not Available No t Available clindamycin HCl 300 mg capsule TAKE 1 CAPSULE BY MOUTH THREE TIMES DAILY 11/15 completed Not Available Not Available Not Available cetirizine 10 mg tablet TAKE 1 TABLET BY MOUTH DAILY FOR 7 DAYS active Not Available Not Available No t Available ibuprofen 800 mg tablet TAKE 1 TABLET BY MOUTH EVERY 6 HOURS NEEDED FOR TOOTH PAIN 11/15 completed Not Available Not Available Not Available fluconazole 150 mg tablet TAKE 1 TABLET BY MOUTH NOW. REPEAT IN 72 HOURS IF NEEDED active Not Available Not Available No t Available hydrocodone 5 mg-acetamino phen 325 mg tablet 11/18 completed Not Available Not Available Not Available Maryanne Low Dose Aspirin 81 mg tablet,delay ed release 11/18 completed Not Available Not Available Not Available penicillin V potassium 500 mg tablet 12/23 completed Not Available Not Available Not Available metronidazol e 500 mg tablet 12/23 completed Not Available Not Available Not Available meclizine 25 mg tablet TAKE 1 TABLET BY MOUTH THREE TIMES DAILY NEEDED active Not Available Not Available No t Available cephalexin 500 mg capsule Take 1 capsule every 12 hours by oral route for 10 days. 11/18 completed Not Available Not Available Not Available progesterone micronized 200 mg capsule 11/18 completed Not Available Not Available Not Available folic acid 1 mg tablet 11/18 completed Not Available Not Available Not Available ibuprofen 600 mg tablet TAKE 1 TABLET BY MOUTH THREE TIMES DAILY NEEDED active Not Available Not Available No t Available albuterol sulfate HFA 90 mcg/actuatio n aerosol inhaler INHALE 2 PUFFS BY MOUTH EVERY 4 HOURS NEEDED active Not Available Not Available No t Available amoxicillin 875 mg-potassium clavulanate 125 mg tablet 11/18 completed Not Available Not Available Not Available escitalopram 10 mg tablet TAKE 1 TABLET BY MOUTH EVERY DAY AT BEDTIME active Not Available Not Available No t Available escitalopram 20 mg tablet 11/18 completed Not Available Not Available Not Available escitalopram 5 mg tablet TAKE 1 TABLET BY MOUTH EVERY DAY 11/18 completed Not Available Not Available Not Available nitrofuranto in monohydrate/ macrocrystal s 100 mg capsule TAKE 1 CAPSULE BY MOUTH TWICE DAILY 11/15 completed Not Available Not Available Not Available calcium 600 mg (as carbonate)-v itamin D3 10 mcg (400 unit) tablet 11/18 completed Not Available Not Available Not Available 28 mg iron-800 mcg tablet 11/15 completed Not Available Not Available Not Available bupropion HCl 150 mg tablet,12 hr sustained-re lease(smokin g deterrent) 11/18 completed Not Available Not Available Not Available Vitals Date Recorded Body height Body mass index (BMI) Body weight Systolic blood pressure Diastolic blood pressure Provider Name and Address Organization Details Last Updated DateTime 05/22/2023 160.02 cm 30.3 kg/m2 41746.29 527 g 113 mm[Hg] 75 mm[Hg] Savanna Wilson [facility] 3 12:26:35 Date Recorded Body height Body mass index (BMI) Body weight Systolic blood pressure Diastolic blood pressure Provider Name and Address Organization Details Last Updated DateTime 05/27/2023 160.02 cm 30.3 kg/m2 60542.29 527 g 111 mm[Hg] 69 mm[Hg] Yessica Faustin [facility] 3 12:47:25 Date Recorded Body height Body mass index (BMI) Body weight Systolic blood pressure Diastolic blood pressure Provider Name and Address Organization Details Last Updated DateTime 06/03/2023 160.02 cm 30.6 kg/m2 18484.48 001 g 121 mm[Hg] 74 mm[Hg] Savanna Wilson [facility] 3 12:14:03 Date Recorded Body height Body mass index (BMI) Body weight Systolic blood pressure Diastolic blood pressure Provider Name and Address Organization Details Last Updated DateTime 07/08/2023 160.02 cm 26.9 kg/m2 13783.04 g 115 mm[Hg] 74 mm[Hg] Savanna Wilson [facility] 3 13:02:04 Date Recorded Body height Body mass index (BMI) Body weight Systolic blood pressure Diastolic blood pressure Provider Name and Address Organization Details Last Updated DateTime 11/15/2024 160.02 cm 22.6 kg/m2 71815.39 g 117 mm[Hg] 77 mm[Hg] Lakshmi Reich [facility] 5 16:42:06 Social History Question Answer Notes LastModified by Organizat ion Details LastModified Time Tobacco Smoking Status Current Every Day Smoker Zoila Garcia [facility] 07/08/2023 12:55:11 Do You Have An Advance Directive? No Information not available 06/26/2021 If You Are , What Was Your Level Of Alcohol Consumption Prior To ? Occasional [email or web address] Information not available 07/08/2023 Are You Blind Or Do You Have Difficulty Seeing? No Information not available 06/26/2021 What Is Your Level Of Caffeine Consumption? Occasional Information not available 06/26/2021 How Much Tobacco Do You Chew? None Information not available 06/26/2021 In The 14 Days Before Symptom Onset, Have You Had Close Contact With A Laboratory-confir med COVID-19 While That Case Was Ill? No Information not available 06/26/2021 In The 14 Days Before Symptom Onset, Have You Had Close Contact With A Person Who Is Under Investigation For COVID-19 While That Person Was Ill? No Information not available 06/26/2021 Have You Been To An Area Known To Be High Risk For COVID-19? No Information not available 06/26/2021 Are You Deaf Or Do You Have Serious Difficulty Hearing? No Information not available 06/26/2021 What Type Of Diet Are You Following? REGULAR Information not available 06/26/2021 What Is The Highest Grade Or Level Of School You Have Completed Or The Highest Degree You Have Received? [id number] Information not available 06/26/2021 Are There Any Guns Present In Your Home? No Information not available 06/26/2021 Do You Use Protection During Sex? No Information not available 06/26/2021 Do You Use Your Seat Belt Or Car Seat Routinely? Yes Information not available 06/26/2021 Do You Have Smoke And Carbon Monoxide Detectors In Your Home? Yes Information not available 06/26/2021 At What Age Did You Start Smoking Tobacco? 14 Information not available 06/26/2021 How Much Tobacco Do You Smoke? No [email or web address] Information not available 05/22/2023 Do You Use Sunscreen Routinely? Yes Information not available 06/26/2021 How Many Years Have You Smoked Tobacco? 6 Information not available 06/26/2021 Have You Used IV Drugs? No Information not available 06/26/2021 Do You Have Difficulty Walking Or Climbing Stairs? No [email or web address] Information not available 07/08/2023 Sex: Unknown Functional Status Question Answer Note LastModified by Organizat ion Details LastModified Time Do you use any illicit or recreational drugs? No Information not available 06/26/2021 What is your level of alcohol consumption? None Information not available 06/26/2021 Are you able to walk? [email or web address] Information not available 06/26/2021 Are you able to care for yourself? Yes Information n ot available 07/08/2023 Do you have difficulty dressing or bathing? No [email or web address] Information not available 07/08/2023 What is your exercise level? Occasional Information not available 06/26/2021 Mental Status Question Answer Note LastModified by Organization D etails LastModified Time Do you feel stressed (tense, restless, nervous, or anxious, or unable to sleep at night)? [id number] Information not available 06/26/2021 Family History Relationship Description Onset Age of this Age Resolved Age Notes LastModified by Organization Details LastModified Time Father No current problems or disability [email or web address] Not available 11/15 16:44:39 Mother No current problems or disability [email or web address] Not available 11/15 16:44:39 Medical History Condition Response Allergies (Food, seasonal, environmental ) N Other N Drug/Latex Allergies/Reactions Y Blood Transfusion N Breast Cancer N Dermatologic Disorders N Lung Disease N Defects or Inherited Disease N Breast Problem N Gestational Diabetes N Hematologic disorders N Anesthesia Complications N History of STI N Deep Vein Thrombosis N Polycystic ovary syndrome N Anxiety Disorder Y Autoimmune disease N Arthritis N Polyps N Infertility N Acid Reflux (GERD) N History of abnormal pap N Cancer N Varicosities N Stroke N Neurologic/Epilepsy N Endometriosis N High Cholesterol N Fibromyalgia N Headaches N Kidney Disease N Heart Problems N Thyroid Problems N Kidney or Bladder Problems N GI Problems N Eating Disorder N Anemia N Art (IVF or FET) N Psychiatric Illness N Ovarian Cancer N Diabetes N Pulmonary (TB, Asthma) N Hepatitis/Liver Disease N No Past Medical History N Eczema N Urinary Tract Infection N Abuse/Domestic Violence N Asthma N Trauma/Violence N Depression/ depression Y Heart Disease N Pre-Eclampsia N Hypertension N Osteoporosis N Thrombophilias N Gynecological History Statement/Question Response Abnormal Pap N Flow Moderate Date of LMP 11/06/2024 N On BCP's at Conception? N STIs/STDs N Was last menstrual period normal Y HPV Vaccine Y Duration of Flow (days) 6 14 Current Control Method None Age at First Child 16 Are cycles usually normal Y Frequency of Cycle (Q days) 6 Sexually Active? Y Condoms Menses Monthly Y Age of first menstrual cycle 12 Date of Last Pap Smear 11/18/2022 Sexual Problems? N LMP Approximate N Obstetrics History GPAL:G 3 P 3 0 0 3 Type Value Full Term 3 Living 3 Total 3 Past Encounters Encounter ID Performer Location Encounter Start Date Encounter Closed Date Diagnosis/Indication Diagnosis SNOMED-CT Code Diagnosis ICD10 Code Diagnosis Note [id number] MD Mahogany Finch [address],[facility] [place] [address] 06/26/2021 16:02:36 07/01/2021 13:15:49 Routine care 069249567 Z34.83 [id number] MD Mahogany Finch [address],[facility] [place] [address] 06/26/2021 17:12:40 06/26/2021 18:07:04 Uterine size for dates discrepancy 497499093 O26.843 Z3A.33 [id number] Karley Monteiro MD [place] [address],[facility] [place] [address] 07/09/2021 17:28:49 07/10/2021 10:47:20 Routine care 283639236 Z34.83 Marginal i nsertion of umbilical cord 97420906 O43.129 [id number] Karley Monteiro MD [place] [address],[facility] [place] [address] 07/23/2021 17:00:42 07/23/2021 17:31:49 condition affecting obstetrical care of mother 512775043 O36.5930 Z3A.36 [id number] Karley Monteiro MD [place] [address],[place] [address] 07/23/2021 17:01:11 07/24/2021 11:45:54 Routine care 357452715 Z34.83 [id number] Karley Monteiro MD [place] [address],[place] [address] 07/29/2021 17:12:20 07/30/2021 08:42:00 Group B Streptococcus carrier 7032794827 103 Z22.330 Routine an tenatal care 104817161 Z34.83 [id number] Karley Monteiro MD [place] [address],[place] [address] 09/09/2021 17:40:03 09/16/2021 16:12:29 care 786830791 Z39.2 [id number] Mariana Motley [facility] [address],[place] [address] 10/02/2021 17:33:57 10/03/2021 15:02:09 Mastitis associated with 168535498 O91.23 [id number] Karley Monteiro MD [place] [address],[place] [address] 12/23/2021 17:05:22 12/24/2021 10:22:18 Gynecologic examination 99282400 Z01.419 [id number] MD Mahogany Ross [address],[place] [address] 12/02/2022 15:33:27 12/03/2022 10:24:19 Routine care 728968798 Z34.83 Anxiety in 579 3846748 9109 F41.9 [id number] MD Mahogany Ross [address],[place] [address] 11/18/2022 16:36:38 11/18/2022 17:28:57 [id number] MD Traci [place] [address],[place] [address] 11/18/2022 16:37:08 11/19/2022 12:49:34 test positive 656414867 Z32.01 Venereal d isease screening 523514405 Z11.3 Screening for malignant neoplasm of cervix 091099857 Z12.4 Anxiety in 633 0457720 9109 F41.9 [id number] MD Mahogany Ross [address],[place] [address] 12/02/2022 15:33:11 12/02/2022 16:31:21 screening 798338915 Z36.82 [id number] MD Mahogany Ross [address],[place] [address] 12/30/2022 16:40:11 12/31/2022 15:44:11 Routine care 711994226 Z34.83 [id number] MD Mahogany Ross [address],[place] [address] 02/02/2023 11:05:53 02/02/2023 12:50:50 screening 620741692 Z36.3 [id number] Karley Monteiro MD [place] [address],[place] [address] 02/02/2023 11:06:38 02/02/2023 14:17:49 Routine care 232688852 Z34.83 [id number] MD Mahogany Ross [address],[place] [address] 03/03/2023 09:38:36 03/03/2023 11:11:58 Placenta circumvallata 9765648 O43.112 Z3A.25 [id number] MD Traci [place] [address],[place] [address] 03/03/2023 09:39:09 03/03/2023 13:38:59 Routine care 729937449 Z34.83 Placenta circumvallata 5788856 O43.112 Z3A.25 [id number] MD Mahogany Ross [address],[place] [address] 03/16/2023 16:16:21 03/17/2023 16:19:07 Routine care 498823584 Z34.83 [id number] MD Mahogany Ross [address],[place] [address] 03/30/2023 16:49:13 03/30/2023 17:21:20 Placenta circumvallata 1204535 O43.112 Z3A.29 [id number] Karley Monteiro MD [place] [address],[place] [address] 03/30/2023 16:49:35 04/26/2023 22:36:43 [id number] Karley Monteiro MD [place] [address],[place] [address] 04/14/2023 17:12:47 04/14/2023 18:02:21 Routine care 466433363 Z34.83 Anxiety in 888 5455732 9109 F41.9 Placenta circumvallata 9220308 O43.112 Z3A.29 [id number] Karley Monteiro MD [place] [address],[place] [address] 04/27/2023 11:22:03 04/27/2023 12:08:05 Placenta circumvallata 0733675 O43.113 Z3A.33 [id number] Karley Monteiro MD [place] [address],[place] [address] 04/27/2023 11:22:32 04/27/2023 12:48:25 Routine care 583498598 Z34.83 Placenta circumvallata 4408419 O43.113 Z3A.33 [id number] [facility] [address] [address] 05/13/2023 12:12:15 05/13/2023 12:45:46 Routine care 096642125 Z34.93 [id number] Mariana Motley CNM [place] [address],[place] [address] 05/22/2023 12:11:05 05/22/2023 12:42:16 Routine care 296732337 Z34.93 [id number] Mariana Motley [facility] [address],[place] [address] 05/27/2023 12:39:30 05/27/2023 13:42:44 Routine care 435552339 Z34.93 [id number] Mariana Motley [facility] [address] [address],[place] [address] 06/03/2023 12:05:33 06/03/2023 13:34:20 Routine care [id number] Z34.93 [id number] Mariana Motley [facility] [address],[place] [address] 07/08/2023 12:55:00 07/08/2023 13:34:33 Anxiety [id number] F41.9 if any suicidal thoughts to ED, f/u med check 6 weeks, sooner if needed care [id number] 8 Z39.2 [id number] JENNA Santos [place] [address],[place] [address] 11/15/2024 16:28:18 11/16/2024 10:48:40 Gynecologic examination [id number] Z01.419 WWEBC - declinedPa p - UTD, due screen - gc/ct/tric h testing per pt requestHIV /Hep B&C/Syphil is testing ordered per pt requestRou mathew labs - PCPRTC in 1 yr or sooner if needed It is strongly advised to have an annual flu shot and up can obtain at most pharmacies . If you have not had a TDap shot in the last 10 years you should obtain one as well. Discussed with patient & provided with informatio n regarding the HPV vaccine if applicable . Encourage safe sexual practices, to use condoms and limit partners if not already in a monogamous relationsh ip. Do monthly self breast exams. BRCA testing is now available for patients with strong genetic history of female cancer. If interested contact the office. Engage in regular exercise. Avoid tobacco and illicit drugs. This lifestyle behavior pattern will lead to less health conditions and longer life span. If BMI greater than 25 dietary consult advised. Questions answered. Venereal d isease screening [id number] Z11.3 Sexually t ransmitted infectious disease 9601287 A64 Urinary symptoms [id number] 08 R39.9 UA done, cx sentprecau tions discussed Health Concerns Section Related Observation LastModified by Organization Detai ls LastModified Time None Recorded Concern Status LastModified by Organization Details LastModified Time None Recorded Advance Directives Directive N: Payers Encounter Date Sequence Insurance Name Policy Number Policy Willett Covered Member ID Willett Member ID Guarantor Name 05/22/2023 1 [facility] (MEDICAID HMO) [id number] 0003 Joann Parson [id number] Joann Parson 05/27/2023 1 [facility] (MEDICAID HMO) [id number] Joann Parson [id number] Joann Parson 06/03/2023 1 [facility] (MEDICAID HMO) [id number] 0003 Joann Parson [id number] Joann Parson 07/08/2023 1 [facility] (MEDICAID HMO) [id number] 0003 Joann Parson [id number] Joann Parson 11/15/2024 1 [facility] (MEDICAID HMO) [id number] 0003 Joann Parson [id number] Joann Parson Notes Date Note Type Note Provider Name and Address Organization Details Recorded Time 07/08/2023 text/html VisitReported bypatient.Quality:N Context:complicatio ns of : none; complications of labor: none; complications: none; feeding choice: breast; poor support from partner/family; resumed menstrual bleeding no; broke up with bf 2 days ago Associated Symptoms:no abnormal bleeding; no fecal incontinence; no dysuria; no urinary incontinence; no problems; no mastitis;baby blues; told her to stop lexapro 3rd trimester, wants to restart, no suicidal thoughtsNotes:tom e support, has mother, wants to restart lexaprowas thinking tubal ligation, but changed her mind, declines bcm [place] laird, [facility] 07/09/2023 09:35:22 11/15/2024 text/html Annual GYNReport ed bypatient.Menstrual cycle:Normal menses Urinary symptoms:No hematuria; No incontinence Vulva:No genital lesion Vagina:Normal vaginal discharge Breast:No breast pain; No breast lump; No nipple discharge Sexual complaints:No sexual complaints; No pain during intercourse; Normal libido Menopausal Symptoms:No menopausal symptoms; Normal vaginal lubrication Psychological symptoms:No depression; No anxiety; No PMDD Preventive measures:Encourage self breast examination; Encourage regular exercise; Encourage no tobacco use; Encourage regular mammograms starting age 40Notes:24yo wwelast pap 11/2022 : nilm urinary frequency/urgency yesterday, seems to be improving todayneg dysuria JENNA Santos [address], [place], [address], [facility] 11/16/2024 09:39:16 OBGyn Episode Ob Episode Information Episode Created Date Number of Fetuses Patient Bloodtype Patient rh Status Prepregnancy Weight lbs Domestic Partner Domestic Partner Phone Father Name Sales Center Associate Status 12/03/19 23 1 O Positive 131 CLOSED Fetus Data First Name Last Name Admitted to NICU Weight (g) Sex Living Outcome Pediatric Complications Fetus ID Race Codes Race Delivery Type 3509.66 81 F true Full Term [id number] Vaginal Delivery Problems Problem Notes Problem Name Start Date End Date Resolution Snomed Code Not e Placenta circumvallata [id number] growth Anxiety in [id number] lexapro, weaned off 20w- wants to restart in hospital after delivery Daniel Calculation Initial Daniel Date Initial Exam Date Initial Exam Provider Initial Ultrasound Date Last Menstrual Period Date Ultra Sound Weeks Gestation 06/10/2023 12/02/2022 11/18/2022 09/03/2022 11 Eighteen To Twenty Week Daniel Update Ultra Sound Date Fundal Height At Umbil Quickening Date Ultra Sound Latest Weeks Gestation Final Daniel Confirmed By Final Daniel Confirmed Date Final Daniel Date Ultra Sound Latest Days Gestation 0 [email or web address] 12/02/2022 06/10/20 23 0 Pre- Flowsheet Flowsheet Date 12/02/2022 Freeman Score Blood Edema Fundus Height Fundus Units Glucose Ketones Leukocytes Nitrite Labor Signs Protein Cervic Dilation Cervic Effacement Cervic Station neg none none trace Type Weight in lbs Pre/Post Dialysis Refused Weight 133.096193441403 BP Diastolic BP Location Tested BP Systolic BP Type 68 110 Fetus Heart Rate Present A 160 Fetus Movement A No Comments Joann is a 22yo at 12.6 for care. She is on lexapro for anxiety, doing well, wants to stay on. NOrmal NT today, labs and NIPT today. Her past pregnancies have been uncomplicated, term SVDs. Routine care. Flowsheet Date 12/30/2022 Freeman Score Blood Edema Fundus Height Fundus Units Glucose Ketones Leukocytes Nitrite Labor Signs Protein Cervic Dilation Cervic Effacement Cervic Station neg none none trace Type Weight in lbs Pre/Post Dialysis Refused Weight 140.715672326056 BP Diastolic BP Location Tested BP Systolic BP Type 67 107 Fetus Heart Rate Present A 155 Fetus Movement A Yes Comments Doing well. Anatomy US next visit. Lead level today. Flowsheet Date 02/02/2023 Freeman Score Blood Edema Fundus Height Fundus Units Glucose Ketones Leukocytes Nitrite Labor Signs Protein Cervic Dilation Cervic Effacement Cervic Station Type Weight in lbs Pre/Post Dialysis Refused BP Diastolic BP Location Tested BP Systolic BP Type Fetus Heart Rate Present Fetus Movement Comments Flowsheet Date 02/02/2023 Freeman Score Blood Edema Fundus Height Fundus Units Glucose Ketones Leukocytes Nitrite Labor Signs Protein Cervic Dilation Cervic Effacement Cervic Station neg trace none trace Type Weight in lbs Pre/Post Dialysis Refused Weight 145.6442540412 BP Diastolic BP Location Tested BP Systolic BP Type 66 106 Fetus Heart Rate Present A 165 Fetus Movement A Yes Comments Doing very well. Weaned off her lexapro, anxiety is minimal. US today anatomy complete and wnl. Will do growth US for circumvallate placenta. Flowsheet Date 03/03/2023 Freeman Score Blood Edema Fundus Height Fundus Units Glucose Ketones Leukocytes Nitrite Labor Signs Protein Cervic Dilation Cervic Effacement Cervic Station Type Weight in lbs Pre/Post Dialysis Refused BP Diastolic BP Location Tested BP Systolic BP Type Fetus Heart Rate Present Fetus Movement Comments Flowsheet Date 03/03/2023 Freeman Score Blood Edema Fundus Height Fundus Units Glucose Ketones Leukocytes Nitrite Labor Signs Protein Cervic Dilation Cervic Effacement Cervic Station neg trace none trace Type Weight in lbs Pre/Post Dialysis Refused Weight 152.884053852620 BP Diastolic BP Location Tested BP Systolic BP Type 65 104 Fetus Heart Rate Present A 140 Fetus Movement A Yes Comments Doing well. US 30%. GCT next , discussed. Will discuss Tdap next visit. Flowsheet Date 03/16/2023 Freeman Score Blood Edema Fundus Height Fundus Units Glucose Ketones Leukocytes Nitrite Labor Signs Protein Cervic Dilation Cervic Effacement Cervic Station neg none 26 none trace Type Weight in lbs Pre/Post Dialysis Refused Weight 157.478262945162 BP Diastolic BP Location Tested BP Systolic BP Type 65 113 Fetus Heart Rate Present A 135 Fetus Movement A Yes Comments Doing well, no cocnerns. GCT today. Will do Tdap. Growth US next visit. Flowsheet Date 03/30/2023 Freeman Score Blood Edema Fundus Height Fundus Units Glucose Ketones Leukocytes Nitrite Labor Signs Protein Cervic Dilation Cervic Effacement Cervic Station Type Weight in lbs Pre/Post Dialysis Refused BP Diastolic BP Location Tested BP Systolic BP Type Fetus Heart Rate Present Fetus Movement Comments Flowsheet Date 03/30/2023 Freeman Score Blood Edema Fundus Height Fundus Units Glucose Ketones Leukocytes Nitrite Labor Signs Protein Cervic Dilation Cervic Effacement Cervic Station Type Weight in lbs Pre/Post Dialysis Refused BP Diastolic BP Location Tested BP Systolic BP Type Fetus Heart Rate Present Fetus Movement Comments Flowsheet Date 04/14/2023 Freeman Score Blood Edema Fundus Height Fundus Units Glucose Ketones Leukocytes Nitrite Labor Signs Protein Cervic Dilation Cervic Effacement Cervic Station neg trace 30 none trace Type Weight in lbs Pre/Post Dialysis Refused Weight 161.573619765400 BP Diastolic BP Location Tested BP Systolic BP Type 68 107 Fetus Heart Rate Present A 150 Fetus Movement A Yes Comments Doing fine Mood is good, jus t tired. Passed 3 hr. Tdap is done. Last US 28%, repeat next visit. Probably wants to restart lexapro right after delivery. Flowsheet Date 04/27/2023 Freeman Score Blood Edema Fundus Height Fundus Units Glucose Ketones Leukocytes Nitrite Labor Signs Protein Cervic Dilation Cervic Effacement Cervic Station Type Weight in lbs Pre/Post Dialysis Refused BP Diastolic BP Location Tested BP Systolic BP Type Fetus Heart Rate Present Fetus Movement Comments Flowsheet Date 04/27/2023 Freeman Score Blood Edema Fundus Height Fundus Units Glucose Ketones Leukocytes Nitrite Labor Signs Protein Cervic Dilation Cervic Effacement Cervic Station neg 1+ none neg Type Weight in lbs Pre/Post Dialysis Refused Weight 164.536467484577 BP Diastolic BP Location Tested BP Systolic BP Type 76 125 Fetus Heart Rate Present A 135 Fetus Movement A Yes Comments Doing great. US 34%. Discuss ed RSV vaccine. Precautions given. Flowsheet Date 05/13/2023 Freeman Score Blood Edema Fundus Height Fundus Units Glucose Ketones Leukocytes Nitrite Labor Signs Protein Cervic Dilation Cervic Effacement Cervic Station neg trace none trace Type Weight in lbs Pre/Post Dialysis Refused Weight 169.479252511817 BP Diastolic BP Location Tested BP Systolic BP Type 70 117 Fetus Heart Rate Present Fetus Movement A Yes Comments patient is having some rib a nd back pain, contractions, discharge and swelling. would like to go into labor on her own, iol previous 2 pregnancies, hx episiotomy first baby, would like delayed cord clamping, cervif FT/soft, labor precautions reviewed Flowsheet Date 05/22/2023 Freeman Score Blood Edema Fundus Height Fundus Units Glucose Ketones Leukocytes Nitrite Labor Signs Protein Cervic Dilation Cervic Effacement Cervic Station neg trace none trace 1cm 30% Type Weight in lbs Pre/Post Dialysis Refused Weight 171.675763701779 BP Diastolic BP Location Tested BP Systolic BP Type 75 113 Fetus Heart Rate Present A 150 Present Fetus Movement A Yes Comments patient is having some pain, discharge, and swelling. considering 39 week iol due to discomfort, rec warm bath, yoga, stretching, cervix soft education and precautions Flowsheet Date 05/27/2023 Freeman Score Blood Edema Fundus Height Fundus Units Glucose Ketones Leukocytes Nitrite Labor Signs Protein Cervic Dilation Cervic Effacement Cervic Station none trace Type Weight in lbs Pre/Post Dialysis Refused Weight 171.651741607808 BP Diastolic BP Location Tested BP Systolic BP Type 69 L arm 111 sitting Fetus Heart Rate Present A 133 Present Fetus Movement A Yes Comments pt desires iol next week, pl an tuesday 06/05, precautions reviewed, vertex ? leaking to lD for rom plus Flowsheet Date 06/03/2023 Freeman Score Blood Edema Fundus Height Fundus Units Glucose Ketones Leukocytes Nitrite Labor Signs Protein Cervic Dilation Cervic Effacement Cervic Station neg trace none trace 1cm 50% -3 Type Weight in lbs Pre/Post Dialysis Refused Weight 173.266571906053 BP Diastolic BP Location Tested BP Systolic BP Type 74 121 Fetus Heart Rate Present A 148 Present Fetus Movement A Yes Comments patient is having some pain, contractions, discharge, swelling and nausea. IOl on thursday, requests tubal ligation, consent signed today precautions reviewed Menstrual History Last Menstrual Date Menses Monthly On Bcp Conception Prior Menses Frequency Hcg Plus Date Menarche Onset Age 0209/03/2022 Genetic Screening And Infection History Question Response Note Mental Retardation/Autism false Patient's Age Will Be 35 Years Or Older At Estim ated Date of Delivery false Thalassemia (Citizen Of [place], [place] Citizen, Mediterranean, Or Background): MCV < 80 false Neural Tube Defect (Meningomyelocele, Spina Bifi da, Or Anencephaly) false Congenital Heart Defect false Down Syndrome false Rashid-Sachs (eg, Religious, Cajun, [place]) f alse Misti Disease false Sickle Cell Disease Or Trait () false Hemophilia Or Other Blood Disorders false Muscular Dystrophy false Cystic Fibrosis false [place]'s Chorea false Intellectual Disability/Autism false If Yes, Was Person Tested For Fragile X? false Other Inherited Genetic Or Chromosomal Disorder false Maternal Metabolic Disorder (eg, Type 1 Diabetes , PKU) false Patient Or Baby's Father Had A Child With Defects Not Listed Above false Recurrent Loss, Or A Stillbirth false Medications (including Suppl ements, Vitamins, Herbs, OTC Drugs), Illicit/Recreational Drugs, Alcohol false If Yes, Agent(s) And Strength/Dosage false Any Other Genetic History false Live With Someone With TB Or Exposed To TB false Patient Or Partner Has History Of Genital Herpes false Rash Or Viral Illness Since Last Menstrual Perio d false History Of STD, Gonorrhea, Chlamydia, HPV, Syphi lis false Other Infection History false History of HIV false History of Hepatitis false Prior GBS-infected child false Hemoglobinopathy Or Carrier false Other Structural Defect false Recent Travel History Outside of Country false Delivery Information Delivery Date Delivery Type Labor Anesthesia Weeks Gestation Incision Type Labor Labor Length Hrs Delivered By Post Complications Tubal Sterilization Discharge Date Comments 3 Induce d Regional-Ep idural 39.2 false Mariana Motley CNM Anxiety in , Placenta circumval gardenia Discharge Information Feeding Method Contraceptive Method Maternal HG B and HCT Levels Ob Episode Information Episode Created Date Number of Fetuses Patient Bloodtype Patient rh Status Prepregnancy Weight lbs Domestic Partner Domestic Partner Phone Father Name Sales Center Associate Status 06/26/20 21 1 O Positive CLOSED Fetus Data First Name Last Name Admitted to NICU Weight (g) Sex Living Outcome Pediatric Complications Fetus ID Race Codes Race Delivery Type Emre 3033.39 64 M true Full Term Gastric Aspirate 8 ccs & Meconium 24071 Vaginal Delivery Problems Problem Notes declines flu and COVID vacci vianca. Problem Name Start Date End Date Resolution Snomed Code Not e Marginal insertion of umbilical cord [id number] serial growth Venous escoto [id number] resolved Group B Streptococcus carrier [id number] Daniel Calculation Initial Daniel Date Initial Exam Date Initial Exam Provider Initial Ultrasound Date Last Menstrual Period Date Ultra Sound Weeks Gestation 08/14/2021 06/26/2021 01/21/2021 11/07/2020 10 Eighteen To Twenty Week Daniel Update Ultra Sound Date Fundal Height At Umbil Quickening Date Ultra Sound Latest Weeks Gestation Final Daniel Confirmed By Final Daniel Confirmed Date Final Daniel Date Ultra Sound Latest Days Gestation 0 [email or web address] 06/26/2021 08/14/19 22 0 Pre-floridalma Flowsheet Flowsheet Date 06/26/2021 Freeman Score Blood Edema Fundus Height Fundus Units Glucose Ketones Leukocytes Nitrite Labor Signs Protein Cervic Dilation Cervic Effacement Cervic Station 32 Type Weight in lbs Pre/Post Dialysis Refused Weight 150.692314359256 BP Diastolic BP Location Tested BP Systolic BP Type 73 R arm 123 sitting Fetus Heart Rate Present A 140 Fetus Movement Comments This patient is a 20-year-ol d 2 para 1001 at 33 weeks gestation who presents for transfer of care. She has had an uncomplicated so far. Venous lakes were seen on 1 ultrasound, placental venous lakes. They resolved on the subsequent ultrasound. There appears to be some growth concerns. A growth ultrasound was ordered for today. We will complete that growth ultrasound here she had a term vaginal her previous . She is on vaccinated for COVID. We will continue routine care. Flowsheet Date 06/26/2021 Freeman Score Blood Edema Fundus Height Fundus Units Glucose Ketones Leukocytes Nitrite Labor Signs Protein Cervic Dilation Cervic Effacement Cervic Station Type Weight in lbs Pre/Post Dialysis Refused BP Diastolic BP Location Tested BP Systolic BP Type Fetus Heart Rate Present Fetus Movement Comments Flowsheet Date 07/09/2021 Freeman Score Blood Edema Fundus Height Fundus Units Glucose Ketones Leukocytes Nitrite Labor Signs Protein Cervic Dilation Cervic Effacement Cervic Station neg trace 32 none trace Type Weight in lbs Pre/Post Dialysis Refused Weight 153.970858118889 BP Diastolic BP Location Tested BP Systolic BP Type 74 121 Fetus Heart Rate Present A 145 Fetus Movement A Yes Comments Doing well. Tdid Tdap, decli vianca flu and COVID vaccines, she is aware of risks. Trich today. US for MCI 18%, growth again in 2 weeks. GBS next visit. Flowsheet Date 07/23/2021 Freeman Score Blood Edema Fundus Height Fundus Units Glucose Ketones Leukocytes Nitrite Labor Signs Protein Cervic Dilation Cervic Effacement Cervic Station Type Weight in lbs Pre/Post Dialysis Refused BP Diastolic BP Location Tested BP Systolic BP Type Fetus Heart Rate Present Fetus Movement Comments Flowsheet Date 07/23/2021 Freeman Score Blood Edema Fundus Height Fundus Units Glucose Ketones Leukocytes Nitrite Labor Signs Protein Cervic Dilation Cervic Effacement Cervic Station neg none 34 none trace 2cm 50% -2 Type Weight in lbs Pre/Post Dialysis Refused Weight 154.852929420279 BP Diastolic BP Location Tested BP Systolic BP Type 69 112 Fetus Heart Rate Present A 155 Fetus Movement A Yes Comments Doing well. Did have ctx q 4 -10 min yesterday for several hours. Then stopped. GBS done and discussed. US today 17% normal dopplers. Precautions given. Flowsheet Date 07/29/2021 Freeman Score Blood Edema Fundus Height Fundus Units Glucose Ketones Leukocytes Nitrite Labor Signs Protein Cervic Dilation Cervic Effacement Cervic Station neg trace 35 none trace 3cm 60% -3 Type Weight in lbs Pre/Post Dialysis Refused Weight 158.897120696963 BP Diastolic BP Location Tested BP Systolic BP Type 74 119 Fetus Heart Rate Present A 135 Fetus Movement A Yes Comments Doing ok, very uncomfortable . Uncertain if wants IOL at 39 weeks, will discuss with jordi and let us know tomorrow- discussed IOL 08/07. Discussed pos GBS. Menstrual History Last Menstrual Date Menses Monthly On Bcp Conception Prior Menses Frequency Hcg Plus Date Menarche Onset Age 0411/07/2020 Genetic Screening And Infection History Question Response Note Mental Retardation/Autism false Patient's Age Will Be 35 Years Or Older At Estim ated Date of Delivery false Thalassemia (Citizen Of [place], [place] Citizen, Mediterranean, Or Background): MCV < 80 false Neural Tube Defect (Meningomyelocele, Spina Bifi da, Or Anencephaly) false Congenital Heart Defect false Down Syndrome false Rashid-Sachs (eg, Religious, Cajun, [place]) f alse Misti Disease false Sickle Cell Disease Or Trait () false Hemophilia Or Other Blood Disorders false Muscular Dystrophy false Cystic Fibrosis false [place]'s Ch[place] false Intellectual Disability/Autism false If Yes, Was Person Tested For Fragile X? false Other Inherited Genetic Or Chromosomal Disorder false Maternal Metabolic Disorder (eg, Type 1 Diabetes , PKU) false Patient Or Baby's Father Had A Child With Defects Not Listed Above false Recurrent Loss, Or A Stillbirth false Medications (including Suppl ements, Vitamins, Herbs, OTC Drugs), Illicit/Recreational Drugs, Alcohol false If Yes, Agent(s) And Strength/Dosage false Any Other Genetic History false Live With Someone With TB Or Exposed To TB false Patient Or Partner Has History Of Genital Herpes false Rash Or Viral Illness Since Last Menstrual Perio d false History Of STD, Gonorrhea, Chlamydia, HPV, Syphi lis false Other Infection History false History of HIV false History of Hepatitis false Prior GBS-infected child false Hemoglobinopathy Or Carrier false Other Structural Defect false Recent Travel History Outside of Country false Delivery Information Delivery Date Delivery Type Labor Anesthesia Weeks Gestation Incision Type Labor Labor Length Hrs Delivered By Post Complications Tubal Sterilization Discharge Date Comments 2 Induce d Regional-Ep idural 39 false Karley Monteiro MD Gbs+, Marginal Cord Insertion Discharge Information Feeding Method Contraceptive Method Maternal HG B and HCT Levels Ob Episode Information Episode Created Date Number of Fetuses Patient Bloodtype Patient rh Status Prepregnancy Weight lbs Domestic Partner Domestic Partner Phone Father Name Sales Center Associate Status 06/26/20 21 1 CLOSED Fetus Data First Name Last Name Admitted to NICU Weight (g) Sex Living Outcome Pediatric Complications Fetus ID Race Codes Race Delivery Type 3458.63 9 F Full Term 74141 Vaginal Delivery Daniel Calculation Initial Daniel Date Initial Exam Date Initial Exam Provider Initial Ultrasound Date Last Menstrual Period Date Ultra Sound Weeks Gestation 0 Eighteen To Twenty Week Daniel Update Ultra Sound Date Fundal Height At Umbil Quickening Date Ultra Sound Latest Weeks Gestation Final Daniel Confirmed By Final Daniel Confirmed Date Final Daniel Date Ultra Sound Latest Days Gestation 0 0 Menstrual History Last Menstrual Date Menses Monthly On Bcp Conception Prior Menses Frequency Hcg Plus Date Menarche Onset Age Delivery Information Delivery Date Delivery Type Labor Anesthesia Weeks Gestation Incision Type Labor Labor Length Hrs Delivered By Post Complications Tubal Sterilization Discharge Date Comments 7 42 Discharge Information Feeding Method Contraceptive Method Maternal HG B and HCT Levels
--- OUTSIDE RECORDS SUMMARY | 2024-12-25 03:56 | XMS_ITS | CONTINUITY OF CARE DOCUMENT ---
Author Name titus qureshi Address Unknown Organization [facility] Address [address] [place] [address] Phone [phone] Care Team Providers Care Reception Centre Manager Name Role Phone Gladys CAPONE, Yoni Unavailable HOPMAX VALDEZ Unavailable [phone] HOPMAX VALDEZ Unavailable [phone] PROBLEMS Condition Status Date Provider Notes Tobacco abuse active Noam Mackenzie Hx of supraventricular tachycardia (SVT) active 03/07 Pat Gege Anxiety active Eryn Juarez [employer]MENT [employer] Chest pain-type to be determined active Connie Juarez [employer]MENT [employer]GE[employer] Palpitations active Eryn Juarez [employer] EQUIPMENT [employer]GE[employer] Shortness of breath active Nati Enrique P ENCOUNTERS Date Type Provider Location Encounter Diag nosis - In-person encounter Office Visit Yoni Graham MD [facility] - In-person encounter Office Visit Yoni Graham MD [facility] - In-person encounter Office Visit Yoni Graham MD [facility] Shortness of breath - In-person encounter Office Visit Yoni Graham MD [facility] - In-person encounter Office Visit Yoni Graham MD [facility] AnxietyChest pain-type to be determinedPalpitations VITAL SIGNS Date Observation Value Provider Body Mass Index (Ratio) 24.97 kg/m2 Abdirahman fontenot [place] blood pressure, diastolic -1 mm[Hg] Li nkLogic blood pressure, systolic 114 mm[Hg] Charo ic blood pressure, diastolic 78 mm[Hg] Ja rret blood pressure, systolic 114 mm[Hg] Jar ret pulse rate 63 /min Jai y blood pressure, cuff size regular Ja rret oxygen saturation, oximetry 99 % respiratory rate E&M 14 /min Jai weight E&M 141 [lb_av] Jai y height E&M 63 [in_i] [facility] y Body Mass Index (Ratio) 26.39 kg/m2 Noam Mackenzie blood pressure, cuff size regular Ke rri Gruenenf blood pressure, diastolic 80 mm[Hg] Ke rri Gruenenfelder blood pressure, systolic 112 mm[Hg] Ker ri Gruenenfelder oxygen saturation, oximetry 98 % Ruby [facility] respiratory rate E&M 12 /min Ruby G ruenenfelder pulse rate 83 /min Ruby Gruenenfe [facility] weight E&M 149 [lb_av] Ruby Gruenenfe height E&M 63 [in_i] Ruby Gruenenfe Body Mass Index (Ratio) 27.10 kg/m2 Royal Graham MD blood pressure, diastolic 75 mm[Hg] Kim nkLogic blood pressure, systolic 98 mm[Hg] Charo kLogic blood pressure, cuff size regular Ja rret blood pressure, diastolic 75 mm[Hg] Ja rret blood pressure, systolic 98 mm[Hg] Jar ret pulse rate 89 /min Jai y respiratory rate E&M 12 /min Jai oxygen saturation, oximetry 97 % Jai weight E&M 153 [lb_av] Jai y height E&M 63 [in_i] Jai y Body Mass Index (Ratio) 21.61 kg/m2 Noam Ahmedzai blood pressure, diastolic 70 mm[Hg] Li nkLogic blood pressure, systolic 129 mm[Hg] Charo kLogic blood pressure, cuff size regular Ke rri Gruenenfelder blood pressure, diastolic 70 mm[Hg] Ke rri Gruenenfelder blood pressure, systolic 129 mm[Hg] Kenyatta Donovannfelder oxygen saturation, oximetry 99 % Ruby Carlisleer respiratory rate E&M 14 /min Ruby morriselder pulse rate 81 /min Ruby Webster lder weight E&M 122 [lb_av] Ruby Webster er height E&M 63 [in_i] Ruby Jimmienenfe lder weight E&M 118 [lb_av] Dulce Menond Body Mass Index (Ratio) 21.08 kg/m2 Noam Rodriguezmedzai blood pressure, cuff size regular Ke rri Gruenenfelder blood pressure, diastolic 76 mm[Hg] Ke rri Gruenenfelder blood pressure, systolic 122 mm[Hg] Kenyatta ri Gruenenfelder oxygen saturation, oximetry 98 % Ruby Hartmanyulissaroel respiratory rate E&M 14 /min Ruby Mao chekolesteramrita pulse rate 81 /min Ruby Webster lder weight E&M 119 [lb_av] Ruby Webster lder height E&M 63 [in_i] Ruby Donovangabriellanan lder ALLERGIES Allergy Name Onset Date Reaction Criticality Status LAYTEX High Criticality active HONEY High Criticality active HISTORY OF MEDICATION USE Medication Status Instructions Dates Provider Indications Com ments nitrofurantoin monohyd/m-cryst 100 mg capsule active Scott Phillip albuterol sulfate 90 mcg/actuation HFA aerosol inhaler active Inhale 1 puff using inhaler three times a day 9 Nati Parra NP magnesium oxide 400 mg magnesium tablet active Take 1 tablet by mouth twice a day 9 Nati Parra NP nitrofurantoin monohyd/m-cryst 100 mg capsule completed - 9 Nati Parra NP escitalopram oxalate 10 mg tablet active Take 1 tablet by mouth once a day Nati Parra NP SOCIAL HISTORY Date Observation Value Provider personal history of marijuana use no Scott Phillip drug use no Scott Odenty alcohol use no Scott Kenji smoking, year quit 2021 Scott Rayo atty number of years as a smoker 8 a Scott Odenty smoking history, tot al pack/day 1/2 ppd Scott Phillip cigarette use yes Scott Odenty smoking status Former smoker Scott Hayden lorena personal history of marijuana use no Eryn Juarez NP drug use no Eryn reynolds NP alcohol use no Eryn reynolds NP smoking, year quit 2021 Eryn Juarez NP number of years as a smoker 8 a Eryn Juarez [employer]MENT [employer] smoking history, tot al pack/day 1/2 ppd Eryn Byrnesr [employer] E[employer]MENT [employer]GE[employer] cigarette use yes Eryn Martin er [employer] E[employer]IPMENT [employer]GE[employer] smoking status Former smoker Eryn Hunt dler [employer] EQUIPMENT SERGEANT Exercise counseling Yes Eryn Byrnesr [employer] EQUIPMENT SERGEANT personal history of marijuana use no Nati Bonareri [employer] EQUIPMENT SERGEANT drug use no Nati Bonareri [employer] E[employer]IPMENT SERGEANT alcohol use no Chelseaah Bonareri [employer] EQUIPMENT SERGEANT smoking, year quit 2021 Nati Mercer areri [employer] EQUIPMENT [employer]GE[employer] number of years as a smoker 8 a Nati Welchreri [employer] EQUIPMENT SERGEANT smoking history, tot al pack/day 1/2 ppd Nati Bonareri [employer]MENT [employer]GE[employer] cigarette use yes Nati Bonareri MOT[employer] EQUIPMENT SERGEANT smoking status Former smoker Nati Welchre ri [employer] EQUIPMENT SERGEANT social history E&M S moking History: Maria Elena viveros is a former smoker. Noam Mackenzie social history reviewed E&M revi ewed - no changes required Noam Mackenzie smoking, year quit 2021 Ruby jasso number of years as a smoker 8 a Ruby Kelly smoking history, tot al pack/day 1/2 ppd Ruby Mendoza cigarette use yes Ruby crowe smoking status Former smoker Ruby Silveiraginger peck number of years as a smoker 8 a Ruby Kelly smoking history, tot al pack/day 1/2 ppd Ruby Kelly smoking, year quit 2021 Ruby Metz louisa cigarette use yes Ruby Devan crowe smoking status Former smoker Ruby Silveiraginger peck INSURANCE PROVIDERS Payer name Policy type / Coverage type [place] [employer] [place] [employer] Medicaid [id number] ADVANCE DIRECTIVES Name Date DISCUSSED - NO DECISION MADE TREATMENT PLAN Date Name Performer [id number],C,Telemetry res ults pending Noam Mackenzie [id number],C,P atient was advised to stop smoking. Noam Mackenzie [id number],C,N ormal echo and routine stress test u nlikely cardiac etiology for her CP. Noam Mackenzie [id number],C,s ee above will check routine stress test to assess hr response to exercise w ill check 1 week telesentry, will check ECHO w ill check labs Eryn Juarez NP [id number],C,. Pt states that after delivery, symptoms pretty much resolved until about 1-2 months ago. She reports that she has been experiencing daily intermittent palpitations, with associated chest heaviness, 4-5/10, unchanged with inspiration or movement, substernal, that radiates to R axilla and down R arm, with associated dizziness. Symptoms improve with rest. Pt also reports increased fatigue, decreased activity tolerance, but deneis any increaead BLE edema, orthopnea, PND or syncope. Pt states that smoking and caffeine exacerbated symptoms. She presented to [facility] ED 07/22/22. work up was unremarkable and was 'diagnosed with anxiety disorder.' Pt states symptoms have continued daily. family hx: premature CAD (M aunt stent 30's), mom from overdose and ckd. 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 will check routine stress test, echo, and labs Eryn Juarez NP Cardiology:She quit smoking in 2021 Scott Phillip Cardiology:improves with inhalers. She has been advised to continue using inhalers A dvised to purchase a spacer for her inahlers Scott Phillip Cardiology: s tress test normal 08/2022 Scott Phillip Cardiology:rare SVE observed on latest monitor Scott Phillip Electrophysiology:re ports that she does have anxiety issues. she reports that she saw a psychiatrist 'that only wanted to add medications' which she did not like. suggested that maybe seeing a psychologist or psychotherapist may be a been option.. Eryn Juarez NP Electrophysiology:wi ll arrange 1 week telesentry heart monitor 08/14-08/21/2022 S inus Rhythm with rare Supraventricular ectopics and a single isolated Ventricular e ctopic. The average heart rate was 83bpm with a maximum rate of 135bpm and a m inimum rate of 52bpm. SVE?s were documented as couplets and isolated beats. T otal VE Beats: (<1%) Will add Magnesium Oxide 400 mg BID. Eryn Juarez NP Electrophysiology:st ress test normal 08/2022 Eryn Juarez NP Electrophysiology:PF Ts demonstrated minimal obstructive airway disease. Eryn Juarez NP Electrophysiology: W ill plan for PFTs. C an try Albuterol inhaler and monitor symptoms. Yoni Graham MD Electrophysiology: N ormal echo and routine stress test d iscussed with patient unlikely cardiac etiology for her CP. S he reports some assocaited shortness of breath, will check PFTs and follow up after. C an try Albuterol inhaler and monitor symptoms Yoni Graham MD Electrophysiology: W ill plan for PFTs. C an try Albuterol inhaler and monitor symptoms. Nati Parra NP Electrophysiology: h eart monitor 08/14-08/21/2022 S inus Rhythm with rare Supraventricular ectopics and a single isolated Ventricular e ctopic. The average heart rate was 83bpm with a maximum rate of 135bpm and a m inimum rate of 52bpm. SVE?s were documented as couplets and isolated beats. T otal VE Beats: (<1%) Will add Magnesium Oxide 400 mg BID. Nati Parra NP Electrophysiology: N ormal echo and routine stress test d iscussed with patient unlikely cardiac etiology for her CP. S he reports some assocaited shortness of breath, will check PFTs and follow up after. C an try Albuterol inhaler and monitor symptoms Nati Parra NP Electrophysiology:Telemetry resu lts pending Noam Rosarioaurelio Electrophysiology:Zeb mayorga was advised to stop smoking. Noam Rosarioauerlio Electrophysiology:No rmal echo and routine stress test u nlikely cardiac etiology for her CP. Noam Rosarioaurelio Electrophysiology:se e above will check routine stress test to assess hr response to exercise w ill check 1 week telesentry, will check ECHO w ill check labs Eryn Juarez NP Electrophysiology:. Pt states that after delivery, symptoms pretty much resolved until about 1-2 months ago. She reports that she has been experiencing daily intermittent palpitations, with associated chest heaviness, 4-5/10, unchanged with inspiration or movement, substernal, that radiates to R axilla and down R arm, with associated dizziness. Symptoms improve with rest. Pt also reports increased fatigue, decreased activity tolerance, but deneis any increaead BLE edema, orthopnea, PND or syncope. Pt states that smoking and caffeine exacerbated symptoms. She presented to [facility] ED 07/22/22. work up was unremarkable and was 'diagnosed with anxiety disorder.' Pt states symptoms have continued daily. family hx: premature CAD (M aunt stent 30's), mom from overdose and ckd. 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 will check routine stress test, echo, and labs Eryn Juarez NP Date Name Holter Monitor 48 hr Monitor - Telemetry (Mobile Cardiac) DLCO - 29154 FRC - 85687 FVC - 56493 Stress Routine Complete Echo HEMOGLOBIN A1c IRON AND TOTAL IRON BINDING CAPACITY FERRITIN CBC (INCLUDES DIFF/P LT) TSH, free T4, total T3 LIPID PANEL COMPREHENSIVE METABO LIC PANEL, W/EGFR Monitor - Telemetry (Mobile Cardiac) Complete Echo HISTORY OF PROCEDURES Procedure Date Procedure Name Provider Procedure Notes S tatus EKG Yoni Graham MD comp leted EKG Yoni Graham MD comp leted Spirometry Yoni Graham MD comp leted FVC / MVV - 16024 Yoni Graham MD completed SpO2 w/o 6min walk/titration Yoni Graham MD completed SVC - 02954 Yoni Graham MD com pleted DLCO - 29691 Yoni Graham MD co mpleted EKG Yoni Graham MD comp leted EKG Yoni Graham MD comp leted EKG Yoni Graham MD comp leted
[2024-12-25 04:11] LABS: Basophils Percent Auto 0.4 % (0.2-1.2); Eosinophils Absolute Auto 0.2 K/mm3 (0-0.3); Eosinophils Percent Auto 2.2 % (0-4.4); Hematocrit 41.7 % (37.0-47.0); Hemoglobin 13.3 g/dL (12.0-15.0); Immature Granulocyte Absolute 0.03 K/mm3 (0.00-0.031); Immature Granulocyte Percent A 0.3 % (0-0.5); Lymphocytes Absolute Auto 3.53 K/mm3 (0.9-3.2); Lymphocytes Percent Auto 36.7 % (18.3-44.2); Mean Corpuscular HGB Conc 31.9 g/dl (32-36); Mean Corpuscular Hemoglobin 29.6 pg (26-34); Mean Corpuscular Volume 92.7 fl (80-100); Mean Platelet Volume 9.5 fl (7.4-10.4); Monocytes Absolute Auto 0.7 K/mm3 (0.1-0.6); Neutrophils Absolute Auto 5.2 K/mm3 (1.3-6.7); Neutrophils Percent Auto 53.4 % (45.5-73.1); Platelet Count Result 298 k/mm3 (150-375); Red Cell Distribution Width 12.6 % (11.5-14.5); White Blood Count 9.6 K/mm3 (4.5-10.0)
[2024-12-25 04:20] LABS: Alanine Aminotransferase 21 U/L (6-35); Albumin Level 4.4 g/dL (3.5-5.1); Alkaline Phosphatase 65 U/L (38-126); Anion Gap 8 mmol/L (4-12); Aspartate Amino Transferase 26 U/L (14-36); Bilirubin,Total 0.4 mg/dL (0.2-1.3); Blood Urea Nitrogen 10 mg/dL (7-17); Carbon Dioxide 26 mmol/L (22-30); Chloride 107 mmol/L (98-107); Estimated CRCL calculation 83 ml/min; Estimated Glomerular Filt Rate > 60; Glucose 107 mg/dL (65-110); Sodium 141 mmol/L (137-145)
[2024-12-25 04:23] LABS: INR 1.1; Prothrombin Time 14.9 Seconds (11.1-14.7)
[2024-12-25 04:24] LABS: Partial Thromboplastin Time 32.9 Seconds (22.3-36.8)
--- NOTE | 2024-12-25 04:33 | ED_ITS ---
HPI - Female Genitourinary General Chief complaint: Vaginal Bleeding Stated complaint: vaginal bleeding about 7 weeks Time Seen by Provider: 12/25/24 04:19 Source: patient and other (fiance) Mode of arrival: ambulatory Limitations: no limitations History of Present Illness HPI Narrative: Patient presents with severe abdominal pain/cramping and vaginal bleeding. She is approximately 7 weeks . States LMP 11/16/24. Dark red vaginal bleeding, not saturating multiple pads though. Went to [place] Thursday and diagnosed with threatened . Reports HCG was 700. No US able to be performed at that time. Advised to follow up that day with Dr Andino whom she is to call on Thursday for an appointment. IUP not yet confirmed. Previously OBGyn Mary Alice Motley at [facility]. First appt to establish with OBGYn scheduled for 01/11/25. Cramping is low bilaterally and radiates to umbilicus. Has been taking acetaminophen and vitamins. Related Data Home Medications ?Medication ?Instructions ?Recorded ?Confirmed ?Last Taken ?Type prenat.vits,saeed,cmt-xbkj-qtmva tablet 05/15/23 06/04/23 09:00 History Allergies Allergy/AdvReac Type Severity Reaction Status Date / Time honey Allergy Unknown Swelling Verified 10/08/23 20:39 of Lip/Tongue/Throat latex Allergy Unknown Itching Verified 10/08/23 20:39 metoclopramide Allergy Unknown Other Verified 10/08/23 20:39 PMFSH Past Medical History Medical History Vaginal delivery x3 Tricuspid insufficiency EF 55% Smoker Anxiety and depression Family History Family History Mother Family history of kidney disease Sibling Family history of kidney disease Social History Social History (Updated 12/25/24 @ 10:23 by Melita Nicholson MD) Social History: Engaged Smoking status: Former smoker Tobacco type: cigarettes and e-cigarettes/vaping Second hand tobacco smoke exposure: No Smoking end date: 08/03/17 Alcohol intake: never Substance use: never Lack of Transportation: No Lack of Food: Never True Current Housing: I Have Housing Concerned About Future Housing: No Difficulty Paying Gas/Electric Bills: No Difficulty Paying for Meds: No Currently Unemployed: No Education: High School Diploma/GED Difficulty w/ Childcare or Family Care: No Occupation/Education: occupation Additional occupation/education comments: Works Mondays and Gender identity (if verbalized by the patient): Female Spiritual care concerns: No Exam 2 Narrative: GENERAL: Well-appearing, well-nourished, and in no acute distress. HEAD: Normocephalic, atraumatic. EYES: Non injected, non icteric ENT: Nares clear, no rhinorrhea or epistaxis. Gross auditory acuity intact. NECK: Supple. No meningismus. CHEST: Speaking in full sentences. No respiratory distress. HEART: Regular rate and rhythm. . ABDOMEN: Soft, nondistended. No rigidity or guarding. Not peritoneal : Performed with JIHAN Kaur present as installation technician/assistant manager airside operations. Normal external genitalia without lesions. Blood in vaginal vauilt. Not hemorrhaging but blood does continue to pool posteriorly. Can visualize cervix but unable to visualize os. EXTREMITIES: Normal range of motion. No lower extremity edema. SKIN: Warm, dry, no rash. NEURO: No focal deficits. Alert and oriented. Answering questions. Following commands. Normal speech without aphasia or dysarthria. PSYCH: Congruent mood and affect. Nearly tearful. Course Vital Signs Vital signs: Vital Signs Pulse Rate 93 12/25/24 04:04 Respiratory Rate 13 12/25/24 04:04 Pulse Oximetry 100 12/25/24 04:04 Temperature 98.1 F 12/25/24 04:06 Pulse Rate 100 12/25/24 07:13 Respiratory Rate 18 12/25/24 07:13 Blood Pressure 113/74 12/25/24 07:13 Pulse Oximetry 98 12/25/24 07:13 MDM - Female Genitourinary MDM Narrative Medical decision making narrative: female at 7w0d GA by stated LMP 11/06/24 presents with abdominal pain/cramping and vaginal bleeding. In the emergency department they are afebrile with vital signs within normal limits. When patient presented to [facility] she was told her beta hCG was 700 but they were unable to perform ultrasound. She has had no other ultrasounds performed and thus there is no confirmation of an intrauterine and her beta hCG today is 675 and this is concerning for miscarriage versus ectopic . Ultrasound ordered. O positive. After US was obtained, patient did go to the bathroom and notes she had vaginal bleeding and passed some clumps of blood and tissue, she believes this was products of conception. Flushed these. Discussed patient's work up with her. We discussed that her presentation favors miscarriage over ectopic though neither confirmed. Will call Dr Andino's office on Thursday to arrange short term follow up. Discharged with RX for acetaminophen. Strict ED return precautions were given to patient in the room. She verifies understanding; in agreement. Differential Diagnosis Differential diagnosis: Likely other (bleeding in first trimester ; spectrum of miscarriage; ectopic ) Lab Data Attestation: I reviewed the patient's lab results. 12/25/24 04:05 12/25/24 04:05 Labs: Lab Results 12/25/24 Range/Units 04:05 WBC 9.6 (4.5-10.0) K/mm3 RBC 4.50 (4.2-5.4) M/mm3 Hgb 13.3 (12.0-15.0) g/dL Hct 41.7 (37.0-47.0) % MCV 92.7 (80-100) fl MCH 29.6 (26-34) pg MCHC 31.9 L (32-36) g/dl RDW 12.6 (11.5-14.5) % Plt Count 298 (150-375) k/mm3 MPV 9.5 (7.4-10.4) fl Immature Gran % (Auto) 0.3 (0-0.5) % Neut % (Auto) 53.4 (45.5-73.1) % Lymph % (Auto) 36.7 (18.3-44.2) % Bryan % (Auto) 7.0 (2.6-8.5) % Eos % (Auto) 2.2 (0-4.4) % Baso % (Auto) 0.4 (0.2-1.2) % Lymph # (Auto) 3.53 H (0.9-3.2) K/mm3 Bryan # (Auto) 0.7 H (0.1-0.6) K/mm3 Eos # (Auto) 0.2 (0-0.3) K/mm3 Baso # (Auto) 0.0 (0.0-0.1) K/mm3 Abs Immat Gran (auto) 0.03 (0.00-0.031) K/mm3 Absolute Neuts (auto) 5.2 (1.3-6.7) K/mm3 Absolute Nucleated RBC 0.000 (0.0-0.012) K/mm3 Nucleated RBC % 0.0 (0.0-0.2) % PT 14.9 H (11.1-14.7) Seconds INR 1.1 APTT 32.9 (22.3-36.8) Seconds Sodium 141 (137-145) mmol/L Potassium 4.0 (3.4-5.0) mmol/L Chloride 107 (98-107) mmol/L Carbon Dioxide 26 (22-30) mmol/L Anion Gap 8 (4-12) mmol/L BUN 10 (7-17) mg/dL Creatinine 0.74 (0.7-1.0) mg/dL Estim Creat Clear Calc 83 ml/min Estimated GFR > 60 (59 - ) Glucose 107 (65-110) mg/dL Calcium 9.0 (8.4-10.2) mg/dL Total Bilirubin 0.4 (0.2-1.3) mg/dL AST 26 (14-36) U/L ALT 21 (6-35) U/L Alkaline Phosphatase 65 (38-126) U/L Total Protein 8.0 (6.3-8.2) g/dL Albumin 4.4 (3.5-5.1) g/dL Beta HCG, Quant 675.07 mIU/ML Blood Type O Positive Antibody Screen Negative Screen Not Reportable Baby's Blood Type Not Reportable Baby's EVETTE Not Reportable Doses of RhIg Required 0 Imaging Data Radiologist's impression: Impressions Ultrasound 12/25/24 06:13 IMPRESSION: No intrauterine gestation is identified. However, with a quantitative beta hCG of less than 2000 the likelihood of a intrauterine or an ectopic gestation to be visualized with ultrasound is markedly limited. The right ovary is enlarged, but no gestational sac is visualized within the right ovary. The parenchyma of the right ovary is unremarkable. Short-term follow-up is recommended Discharge Plan Discharge Clinical Impression: , status unknown, Abdominal pain during in first trimester, Vaginal bleeding during Patient Disposition: Home Condition: Stable Instructions: Antibiotic Form, Miscarriage (ED), Abdominal Pain in (ED) Additional Instructions: As we discussed, no intrauterine was identified. Your beta hCG was 675 and you believe you were passing products of conception so it is likely that you miscarried but ectopic has not clearly been ruled out. As initially planned, you can follow-up with Dr Andino's office on Thursday for follow up which will likely include a repeat HCG and possibly ultrasound. You can continue to take vitamins. Acetaminophen is safe to take (maximum 3000mg/day). Patient Language: Cypriot Prescriptions: New acetaminophen 650 mg tablet extended release 650 mg PO Q8H PRN (Reason: pain) Qty: 20 0RF No Action prenat.vits,saeed,mos-vuls-abmlb Tablet Follow-up/Referrals: Chad Andino MD [Physician] - Scott Acevedo MD [Physician] - Mariana Motley CNM [Primary Care Provider] - Stand Alone Forms: Work/School Release IP Time of Disposition: 07:23
[2024-12-25 04:37] LABS: Beta HCG Quantitative 675.07 mIU/ML
--- OUTSIDE RECORDS SUMMARY | 2024-12-25 04:37 | XMS_ITS | CONTINUITY OF CARE DOCUMENT ---
Author Name titus qureshi Address Unknown Organization [facility] Address [address] [address] [place] [address] Phone [phone] Care Team Providers Care Lumber Piler Operator Name Role Phone Gladys CAPONE, Yoni Unavailable HOPMAX VALDEZ Unavailable [phone] HOPMAX VALDEZ Unavailable [phone] PROBLEMS Condition Status Date Provider Notes Tobacco abuse active Noam Mackenzie Hx of supraventricular tachycardia (SVT) active 03/07 Pat Gege Anxiety active Eryn Juarez ANIMAL RESEARCHER Chest pain-type to be determined active Connie Juarez ANIMAL RESEARCHER Palpitations active Eryn Juarez ANIMAL RESEARCHER Shortness of breath active Nati Enrique P ENCOUNTERS Date Type Provider Location Encounter Diag nosis - In-person encounter Office Visit Yoni Graham MD [facility] - In-person encounter Office Visit Yoni Graham MD [facility] - In-person encounter Office Visit Yoni Graham MD [facility] Shortness of breath - In-person encounter Office Visit Yoni Graham MD [facility] - In-person encounter Office Visit Yoni Graham MD [facility] AnxietyChest pain-type to be determinedPalpitations VITAL SIGNS Date Observation Value Provider Body Mass Index (Ratio) 24.97 kg/m2 Abdirahman fontenot Newell blood pressure, diastolic -1 mm[Hg] Li nkLogic blood pressure, systolic 114 mm[Hg] Charo ic blood pressure, diastolic 78 mm[Hg] Ja rret blood pressure, systolic 114 mm[Hg] Jar ret pulse rate 63 /min Jai y blood pressure, cuff size regular Ja rret oxygen saturation, oximetry 99 % respiratory rate E&M 14 /min Jai weight E&M 141 [lb_av] Jai y height E&M 63 [in_i] [facility] y Body Mass Index (Ratio) 26.39 kg/m2 Noam Mackenzie blood pressure, cuff size regular Ke rri Gruenenf blood pressure, diastolic 80 mm[Hg] Ke rri Gruenenfelder blood pressure, systolic 112 mm[Hg] Ker ri Gruenenfelder oxygen saturation, oximetry 98 % [facility] respiratory rate E&M 12 /min Ruby G ruenenfelder pulse rate 83 /min Ruby Gruenenfe [facility] weight E&M 149 [lb_av] Ruby Gruenenfe height [...] as a smoker 8 a Eryn Juarez ANIMAL RESEARCHER smoking history, tot al pack/day 1/2 ppd Eryn Byrnesr ANIMAL RESEARCHER cigarette use yes Eryn Martin er ANIMAL RESEARCHER smoking status Former smoker Eryn Hunt dler ANIMAL RESEARCHER Exercise counseling Yes Eryn Byrnesr ANIMAL RESEARCHER personal history of marijuana use no Nati Bonareri ANIMAL RESEARCHER drug use no Nati Bonareri ANIMAL RESEARCHER alcohol use no Chelseaah Bonareri ANIMAL RESEARCHER smoking, year quit 2021 Nati Mercer areri ANIMAL RESEARCHER number of years as a smoker 8 a Nati Welchreri ANIMAL RESEARCHER smoking history, tot al pack/day 1/2 ppd Nati Bonareri ANIMAL RESEARCHER cigarette use yes Nati Bonareri ANIMAL RESEARCHER smoking status Former smoker Nati Welchre ri ANIMAL RESEARCHER social history E&M S moking History: Maria [...] Payer name Policy type / Coverage type [place] [employer] [place] [employer] Medicaid [id number] ADVANCE DIRECTIVES Name Date DISCUSSED - NO DECISION MADE TREATMENT PLAN Date Name Performer [id number],C,Telemetry res ults pending Noam Mackenzie [id number],C,P atient was advised to stop smoking. Noam Mackenzie [id number],C,N ormal echo and routine stress test u nlikely cardiac etiology for her CP. Noam Mackenzie [id number],C,s ee above will check routine stress test to assess hr response to exercise w ill check 1 week telesentry, will check ECHO w ill check labs Eryn Juarez NP [id number],C,. Pt states that after delivery, symptoms pretty [...] and caffeine exacerbated symptoms. She presented to [facility] 07/22/22. work up was unremarkable and was 'diagnosed with anxiety disorder.' Pt states symptoms have continued daily. family hx: premature CAD (M aunt stent 30's), mom from overdose and ckd. 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 Noam Rosarioaurelio Electrophysiology:No rmal echo and routine stress test [...] and caffeine exacerbated symptoms. She presented to [facility] 07/22/22. work up was unremarkable and was 'diagnosed with anxiety disorder.' Pt states symptoms have continued daily. family hx: premature CAD (M aunt stent 30's), mom from overdose and ckd. 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 will check routine stress test, echo, and labs Eryn Juarez NP Date Name Holter Monitor 48 hr Monitor - Telemetry (Mobile Cardiac) DLCO - 52321 FRC - 34638 FVC - 46035 Stress Routine Complete Echo HEMOGLOBIN A1c IRON [...] MD comp leted FVC / MVV - 16313 Yoni Graham MD completed SpO2 w/o 6min walk/titration Yoni Graham MD completed SVC - 02530 Yoni Graham MD com pleted DLCO - 34783 Yoni Graham MD co mpleted EKG Yoni Graham MD comp leted EKG Yoni Graham MD comp leted EKG Yoni Graham MD comp leted
[2024-12-25] MEDS: ACETAMINOPHEN 325 MG TABLET 650 MG PO (04:50)
--- NOTE | 2024-12-25 05:41 | PC.NURSE ---
US tech here and taking patient via w/c at this time to perform US.
--- NOTE | 2024-12-25 06:16 | PC.NURSE ---
0610 Patient ambulates to bathroom and back to her room with steady gait. As this RN was putting patient back on monitor, patient states I think I passed it and the placenta. There was something small and it was attached it looked like to something else. It was scary and honestly I flushed it. ERP notified. Patient has call light in hand, visitor at bedside. Patient denies any pain at this time.
== END 2024-12-25 07:41 | disposition home or self-care (01) ==
PROVIDERS: Emergency Provider Student in an Organized Health Care Education/Training Program; PCP Advanced Practice Midwife
DX: O20.9 Hemorrhage in early pregnancy, unspecified (principal); O26.891 Other specified pregnancy related conditions, first trimester; R10.9 Unspecified abdominal pain; O99.411 Diseases of the circulatory system complicating pregnancy, first trimester; I07.1 Rheumatic tricuspid insufficiency; Z87.891 Personal history of nicotine dependence; Z3A.01 Less than 8 weeks gestation of pregnancy
CPT/HCPCS: 36415; 76801; 80053; 84702; 85025; 85461; 85610; 85730; 86850; 86900; 86901; 99284; A9270

== ENCOUNTER 2024-12-27 10:45 | Outpatient (CLI) | payer OTHER, SELFPAY ==
--- OUTSIDE RECORDS SUMMARY | 2024-12-27 10:54 | XMS_ITS | Encounter Summary ---
Author Organization [facility] Address [address] [place] [address] Care Team Providers Care Line Out Man Name Role Phone Horace Guzmán MD Primary Care Provider [phone] Encounter Details Date Type Department Care Team (Late st Contact Info) Description 04/30/2021 Lab Requisition [facility] - Laboratory [address] [place] [address] Jordi Lozada MD [address] [place] [address] Abnormal results of other endocrine function studies; Encounter for supervision of normal , unspecified, unspecified trimester Social History Tobacco Use Types Packs/Day Years Used Date Smoking Tobacco: Passive Smo ke Exposure - Never Smoker Alcohol Use Standard Drinks/Week Comments Not Asked 0 (1 standard drink = 0.6 oz pur e alcohol) Comments No Sex and Gender Information Value Date Recorded Sex Assigned at Not on file Legal 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 Gender Identity Not on file Sexual Orientation Not on file documented as of this encounter Plan of Treatment Not on file documented as of this encounter Procedures Procedure Name Priority Date/Time Associated Diagnosis Comments FIBRONECTIN Routine 04/30/2021 4:4 3 PM CDT Abnormal results of other endocrine function studies Encounter for supervision of normal , unspecified, unspecified trimester documented in this encounter Results * (ABNORMAL) FIBRONECTIN (04/30/2021 4:43 PM CDT) Fibronectin Positive( A) Negative 04/30/2021 7:08 PM CDT [facility] Fluid ENTIRE VAGINA / Unknown Collection / Unknown 04/30/2021 4:43 PM CDT 04/30/2021 6:49 PM CDT Narrative [facility] - 04/30/2021 7:08 PM CDT FIBRONECTIN (fFN) COMMENT: Positive - Indicates the presence of secretions that will result in delivery in less than or equal to 7 to 14 days from collection in symptomatic women. Negative - Indicates the absence of secretions that will result in delivery in less than or equal to 7 to 14 days from collection in symptomatic women. Indeterminate - The specimen does not meet internal acceptance on the initial and repeat testing. The Rapid fFN result should not be interpreted as absolute evidence for the presence or absence of a process that will result in delivery in less than or equal to 7 to 14 days from specimen collection in symptomatic women or delivery in less than or equal to 34 weeks, 6 days in asymptomatic women evaluated between 22 weeks, 0 days and 30 weeks, 6 days of gestation. A positive fFN result may be observed for patients who have experienced cervical disruption caused by, but not limited to, events such as sexual intercourse, digital cervical examination, or vaginal probe ultrasound. The Rapid fFN result should always be used inconjuction with information available from the clinical evaluation of the patient and other diagnostic procedures such as cervical examination, cervical microbiological culture, assessment of uterine activity, and evaluation of other risk factors. Patients taking C-fpnzlier-ateaniotfb may show falsely elevated levels of Homocysteine. Patients taking methotrexate, nicotinic acid, theophylline, nitrous oxide, or L-dopa can have falsely elevated Homocysteine levels. Heterophilic antibodies in human serum can react with reagent immunoglobulins, interfering with in vitro immunoassays. Patients routinely exposed to animals or to animal serum products can be prone to this interference and anomalous values may be observed. Additional information may be required for diagnosis. us Jordi Lozada MD LAB - BODY FLUID ORDERABLES Final Result [facility] [address] [place] [address] documented in this encounter Visit Diagnoses Diagnosis Abnormal results of other endocrine function studies Encounter for supervision of normal , unspecified, unspecified trimester (HCC) documented in this encounter Care Teams Line Out Man Relationship Specialty Start Date End Date Horace Guzmán MD [address] [place] [address] PCP - General Pediatrics 01/03/14 12/22/23 documented as of this encounter
--- OUTSIDE RECORDS SUMMARY | 2024-12-27 10:54 | XMS_ITS | Data Portability ---
Author Organization [facility] Address [address] [place] [address] Assessment Encounter Date Assessment Date Assessment LastModified [...] a year unless there are new symptoms. [email or web address] Not available 11/15/2024 16:36:17 Plan of Treatment Reminders Order Date Submit Date Provider Last Modified By Organization Details Last Modified Time Details Appointments U/S OB SNEAK PEAK 2024 01:00P M ULTRASOUND Not available Not available Not available OB SCREEN 2024 01:30P M Mariana Motley CNM Not available Not available Not available Lab hbcab (hepati tis B core Ab) igm, serum 2024 025 [facility] (Lab), [address], [place], [address], 11/16/2024 17:05:54 HBsAg (hepati tis B surface Ag), serum 2024 025 [facility] (Lab), [address], [place], [address], 11/16/2024 17:05:52 hepatit is C virus Ab, serum 2024 025 [facility] (Lab), [address], [place], [address], 11/16/2024 17:05:53 HIV 1+2 AB + HIV 1 p24 Ag, qualita tive immunoa ssay, serum 2024 025 [facility] (Lab), [address], [place], [address], 11/16/2024 17:05:52 RPR (rapid plasma reagin) , serum 2024 025 [facility] (Lab), [address], [place], [address], 11/16/2024 17:05:53 urinaly sis, dipstic k [address], [facility] [address], [place], [address], 11/15/2024 18:39:47 Referral None recorde d. Procedures None recorde d. Surgeries None recorde d. Imaging None recorde d. Medication Orders Lexapro 10 mg tablet 2022 023 [id number], [address], [place], [place], [id number], 07/09/2023 09:35:15 Patient TargetsNo targets recorded. Patient [...] used inter wright eably . Not Available [facility] (Lab) [address], [place], [address], 11/16/2024 17:05:52 11/16/19 25 11/15/2024 HIV 1/2 ANTIG EN/AN TIBOD Y, REFLE X CONFI RMATI ON HIV antigen/anti body Nonrea ctive nonrea ctive HIV-1 antig en and HIV-1 /HIV- 2 antib odies were not detec galileo. No labor atory evide nce of HIV infec tion. Not Available [facility] (Lab) [address] [place], [address], 11/16/2024 17:05:52 11/16/19 25 11/15/2024 HEPAT ITIS C ANTIB JEANE SCREE N, REFLE X TO CONFI RMATI ON hepatitis C antibody Non-re active non-re active Antib odies to HCV Not Detec galileo, does not exclu de the possi bilit y of expos ure to HCV. Not Available [facility] (Lab) [address], [place], [address], 11/16/2024 17:05:53 11/16/19 25 11/15/2024 RPR SCREE N, REFLE X TITER /CONF IRMAT ION RPR qualitative Nonrea ctive nonrea ctive Not Available [facility] (Lab) [address] [place], [address], 11/16/2024 17:05:53 11/16/1911/15/2024 HEPAT ITIS B CORE, IGM hepatitis B core IgM antibody Non-re active non-re active IgM anti- HBc not detec galileo. Does not exclu de the possi bilit y of expos ure to or infec tion with HBV. Test Perfo rmed by: [facility]on [facility] [address] [place] [address] Not Available [facility] (Lab) [address], [place], [address], 11/16/2024 17:05:54 11/16/19 25 11/15/2024 urina lysis , dipst ick Leukocytes trace Not Available [facility] [address], [place], [address], 11/15/2024 18:38:54 11/16/19 25 11/15/2024 urina lysis , dipst ick Nitrite - Not Available [facility] [address], [place], [address], 11/15/2024 18:38:54 11/16/19 25 11/15/2024 urina lysis , dipst ick Urobilinogen normal Not Available [facility] roxy [address], [place], [address], 11/15/2024 18:38:54 11/16/19 25 11/15/2024 urina lysis , dipst ick Protein ++ Not Available [place] [address], [place], [address], 11/15/2024 18:38:54 11/16/19 25 11/15/2024 urina lysis , dipst ick pH 9 Not Available [place] [address], [place], [address], 11/15/2024 18:38:54 11/16/19 25 11/15/2024 urina lysis , dipst ick Specific [place] 1.005 Not Available [facility] [address], [place], [address], 11/15/2024 18:38:54 11/16/19 25 11/15/2024 urina lysis , dipst ick Ketone - Not Available [facility] [address], [place], [address], 11/15/2024 18:38:54 11/16/19 25 11/15/2024 urina lysis , dipst ick Bilirubin - Not Available [facility] [place] [address], [place], [address], 11/15/2024 18:38:54 11/16/19 25 11/15/2024 urina lysis , dipst ick Glucose Normal Not Available [place] [address], [place], [address], 11/15/2024 18:38:54 11/16/1911/15/2024 urina lysis , dipst ick Appearance cloudy Not Available [facility] [address], [place], [address], 11/15/2024 18:38:54 11/16/19 25 11/15/2024 urina lysis , dipst ick Color yellow Not Available [place] [address], [place], [address], 11/15/2024 18:38:54 04/27/20 23 04/27/2023 US, obste tric, follo w-up No observ ation record ed. [facility] [address], [place], [address], 04/27/2023 13:46:52 04/27/2004/27/2023 US, obste tric, follo w-up No observ ation record ed. NORA Ryan [address], [place], [address], 06/25/2023 03:35:19 12/26/1912/25/2024 imagi ng/di agnos tic resul t No observ ation record ed. [address], [place], [address], 12/25/2024 09:20:50 Result Notes None recorded. Problems Name Problem SNOMED Code Status Onset Date Resolution Date Notes Provider Name and Address Organization Details Recorded Time Pregnvictor hugo y 43484805 Completed 202008/26/2021 Noni laird, [facility] 3 12:46:06 Venous escoto 679373109 Completed resolved Ana Lilia arthurl [facility], [facility] 2 12:55:17 Marginal insertio n of umbilica l cord 19540800 Completed serial growth [place] Lynn l [facility], [facility] 2 12:55:17 Group B Streptoc occus carrier 10717411217 03 Completed Ana Lilia Lynn arthurl [facility], [facility] 2 12:55:17 Pregnanc y 72275805 Completed 202206/08/2023 Noni Marcus [facility], [facility] 3 12:46:06 Anxiety in pregnanc y 91962393070 109 Active lexapro, weaned off 20w- wants to restart in hospital after delivery Noni Marcus [facility] 3 12:45:59 Anxiety in pregnanc y 46093745587 109 Completed lexapro, weaned off 20w- wants to restart in hospital after delivery Noni Marcus [facility], [facility] 3 12:45:59 Placenta circumva llata 2693688 Active growth Noni Marcus [facility] 3 12:45:59 Placenta circumva llata 2152542 Completed growth Noni Marcus [facility] 3 12:45:59 Problem Notes None recorded. Procedures Surgical History Date Name Laterality Status Provider Name and Address Organization Details Recorded Time 11/19/19 23 Date of Last Pap Smear completed Savanna Wilson [facility] 04/02/2023 18:08:39 09/28/19 18 Cholecystectomy completed Yessica Faustin [facility] 06/26/2021 16:42:10 Laparoscopy completed Savanna Wilson [facility] 05/13/2023 12:27:26 Imaging Results None recorded. Procedure Notes None recorded. Medical Equipment None Reported. Allergies Allergen ID Allergen Name Allergen Category Reaction Reaction Severity Criticality Documentation Date Start Date Code Code System Note Provider Name and Address Organization Details Recorded Time 50869 Latex (substanc e) environme nt,medica tion rash moderate Not available 06/26/2021 38953 [address] [facility] 14:06:35 49297 honey preparati on food,medi cation hives Not available Not available 06/26/2021 62154 9 RxNorm Yessica Faustin [facility] 1 14:06:53 71773 Reglan medicatio n Not available Not available Not available 11/15/2024 9230 RxNorm Lakshmi Reich [facility] 5 16:42:34 Medications Name Sig [...] Body mass index (BMI) Body weight Systolic And Diastolic Provider Name and Address Organization Details Last Updated DateTime 11/15/2024 160.02 cm 22.6 kg/m2 63220.39 g 117/77 mm[Hg] Lakshmi Reich [facility] 11/15/2024 16:42:06 Date Recorded Body height Body mass index (BMI) Body weight Systolic And Diastolic Provider Name and Address Organization Details Last Updated DateTime 05/22/2023 160.02 cm 30.3 kg/m2 88730.295 27 g 113/75 mm[Hg] Savanna Wilson [facility] 05/22/2023 12:26:35 Date Recorded Body height Body mass index (BMI) Body weight Systolic And Diastolic Provider Name and Address Organization Details Last Updated DateTime 05/27/2023 160.02 cm 30.3 kg/m2 56490.295 27 g 111/69 mm[Hg] Yessica Roxie [facility] 05/27/2023 12:47:25 Date Recorded Body height Body mass index (BMI) Body weight Systolic And Diastolic Provider Name and Address Organization Details Last Updated DateTime 06/03/2023 160.02 cm 30.6 kg/m2 52849.480 01 g 121/74 mm[Hg] Savanna Wilson [facility] 06/03/2023 12:14:03 Date Recorded Body height Body mass index (BMI) Body weight Systolic And Diastolic Provider Name and Address Organization Details Last Updated DateTime 07/08/2023 160.02 cm 26.9 kg/m2 43541.04 g 115/74 mm[Hg] Savanna Wilson [facility] 07/08/2023 13:02:04 Social History Question Answer Notes LastModified by Organizat ion Details LastModified Time Tobacco Smoking Status Current Every Day [facility] 07/08/2023 12:55:11 Do You Have An Advance Directive? No [email or web address] Information not available 06/26/2021 If You Are , What Was Your Level Of Alcohol Consumption Prior To ? Occasional Information not available 07/08/2023 Are You Blind [...] Or The Highest Degree You Have Received? [id number] Information not available 06/26/2021 Are There Any [...] How Much Tobacco Do You Smoke? No Information not available 05/22/2023 Do You Use Sunscreen Routinely? Yes Information not available 06/26/2021 How Many Years Have You Smoked Tobacco? 6 Information not available 06/26/2021 Have You Used IV Drugs? No Information not available 06/26/2021 Do You Have Difficulty Walking Or Climbing Stairs? No Information not available 07/08/2023 Sex: Unknown Functional [...] you have difficulty dressing or bathing? No [email or web address] Information not available 07/08/2023 What is your exercise level? Occasional Information not available 06/26/2021 Mental Status Question Answer Note LastModified by Organization D etails LastModified Time Do you feel stressed (tense, restless, nervous, or anxious, or unable to sleep at night)? [id number] Information not available 06/26/2021 Family History Relationship Description Onset Age of this Age Resolved Age Notes LastModified by Organization Details LastModified Time Father No current problems or disability [email or web address] Not available 11/15 16:44:39 Mother No current problems or disability [email or web address] Not available 11/15 16:44:39 Medical History Condition Response Allergies (Food, seasonal, environmental ) N Other N Breast Cancer N Drug/Latex Allergies/Reactions Y Blood Transfusion N Dermatologic Disorders N Lung Disease N Defects or Inherited Disease N Breast Problem N Gestational Diabetes N Hematologic disorders N Anesthesia Complications N History of STI N Deep Vein Thrombosis N Polycystic ovary syndrome N Anxiety Disorder Y Autoimmune disease N Arthritis N Infertility N Polyps N Acid Reflux (GERD) N History of abnormal pap N Cancer N Stroke N Varicosities N Neurologic/Epilepsy N Endometriosis N High Cholesterol N Headaches N Fibromyalgia N Kidney Disease N Heart Problems N Kidney or Bladder Problems N Thyroid Problems N GI Problems N Eating Disorder [...] SNOMED-CT Code Diagnosis ICD10 Code Diagnosis Note [id number] Chad Andino MD [place] [address] [address] 06/26/2021 16:02:36 07/01/2021 13:15:49 Routine care 430847442 Z34.83 [id number] Chad Andino MD [place] [address],[place] [address] 06/26/2021 17:12:40 06/26/2021 18:07:04 Uterine size for dates discrepancy 132971628 O26.843 Z3A.33 [id number] Karley Monteiro MD [place] [address],[place] [address] 07/09/2021 17:28:49 07/10/2021 10:47:20 Routine care 395849230 Z34.83 Marginal i nsertion of umbilical cord 69787422 O43.129 27138 Karley Monteiro MD [place] [address],[place] [address] 07/23/2021 17:00:42 07/23/2021 17:31:49 condition affecting obstetrical care of mother 816700313 O36.5930 Z3A.36 [id number] MD Mahogany Ross [address],[place] [address] 07/23/2021 17:01:11 07/24/2021 11:45:54 Routine care 815128621 Z34.83 [id number] MD Mahogany Ross [address],[place] [address] 07/29/2021 17:12:20 07/30/2021 08:42:00 Group B Streptococcus carrier 8150583584 103 Z22.330 Routine an tenatal care 406813315 Z34.83 [id number] Karley Monteiro MD [place] [address],[place] [address] 09/09/2021 17:40:03 09/16/2021 16:12:29 care 179030712 Z39.2 [id number] Mariana Motley [facility] [address],[place] [address] 10/02/2021 17:33:57 10/03/2021 15:02:09 Mastitis associated with 411014144 O91.23 [id number] Karley Monteiro MD [place] [address],[place] [address] 12/23/2021 17:05:22 12/24/2021 10:22:18 Gynecologic examination 56422562 Z01.419 [id number] Karley Monteiro MD [place] [address],[place] [address] 12/02/2022 15:33:27 12/03/2022 10:24:19 Routine care 348328794 Z34.83 Anxiety in 984 0256587 9109 F41.9 [id number] Karley Monteiro MD [place] [address],[place] [address] 11/18/2022 16:36:38 11/18/2022 17:28:57 [id number] Karley Monteiro MD [place] [address],[place] [address] 11/18/2022 16:37:08 11/19/2022 12:49:34 test positive 810493566 Z32.01 Venereal d isease screening 425726901 Z11.3 Screening for malignant neoplasm of cervix 380687648 Z12.4 Anxiety in 302 0644777 9109 F41.9 [id number] MD Mahogany Ross [address],[place] [address] 12/02/2022 15:33:11 12/02/2022 16:31:21 screening 339517074 Z36.82 [id number] MD Mahogany Ross [address],[place] [address] 12/30/2022 16:40:11 12/31/2022 15:44:11 Routine care 687562310 Z34.83 [id number] MD Mahgoany Ross [address],[place] [address] 02/02/2023 11:05:53 02/02/2023 12:50:50 screening 863958982 Z36.3 [id number] MD Mahogany Ross [address],[place] [address] 02/02/2023 11:06:38 02/02/2023 14:17:49 Routine care 120486453 Z34.83 [id number] MD Mahogany Ross [address],[place] [address] 03/03/2023 09:38:36 03/03/2023 11:11:58 Placenta circumvallata 7169419 O43.112 Z3A.25 [id number] MD Mahogany Ross [address],[place] [address] 03/03/2023 09:39:09 03/03/2023 13:38:59 Routine care 569937847 Z34.83 Placenta circumvallata 3377853 O43.112 Z3A.25 [id number] MD Mahogany Ross [address],[place] [address] 03/16/2023 16:16:21 03/17/2023 16:19:07 Routine care 326665460 Z34.83 [id number] MD Mahogany Ross [address],[place] [address] 03/30/2023 16:49:13 03/30/2023 17:21:20 Placenta circumvallata 3596618 O43.112 Z3A.29 [id number] Karley Monteiro MD [place] [address],[place] [address] 03/30/2023 16:49:35 04/26/2023 22:36:43 [id number] Karley Monteiro MD [place] [address],[place] [address] 04/14/2023 17:12:47 04/14/2023 18:02:21 Routine care 035786320 Z34.83 Anxiety in 031 0044793 9109 F41.9 Placenta circumvallata 2509685 O43.112 Z3A.29 [id number] Karley Monteiro MD [place] [address],[place] [address] 04/27/2023 11:22:03 04/27/2023 12:08:05 Placenta circumvallata 2457105 O43.113 Z3A.33 [id number] Karley Monteiro MD [place] [address],[place] [address] 04/27/2023 11:22:32 04/27/2023 12:48:25 Routine care 971922194 Z34.83 Placenta circumvallata 7064588 O43.113 Z3A.33 [id number] Mariana Motley [facility] [address],[place] [address] 05/13/2023 12:12:15 05/13/2023 12:45:46 Routine care 454000673 Z34.93 [id number] Mariana Motley [facility] [address],[place] [address] 05/22/2023 12:11:05 05/22/2023 12:42:16 Routine care 353769691 Z34.93 [id number] Mariana Motley [facility] [address],[place] [address] 05/27/2023 12:39:30 05/27/2023 13:42:44 Routine care 541718180 Z34.93 [id number] Mariana Motley [facility] [address],[place] [address] 06/03/2023 12:05:33 06/03/2023 13:34:20 Routine care 577411703 Z34.93 [id number] [facility] [address] [address] 07/08/2023 12:55:00 07/08/2023 13:34:33 Anxiety 83979445 F41.9 if any suicidal thoughts to ED, f/u med check 6 weeks, sooner if needed care 72902684 8 Z39.2 [id number] JENNA Santos [place] [address],[place] [address] 11/15/2024 16:28:18 11/16/2024 10:48:40 Gynecologic examination 08240905 Z01.419 WWEBC - declinedPa p - UTD, [...] advised. Questions answered. Venereal d isease screening 378277426 Z11.3 Sexually t ransmitted infectious disease 1726558 A64 Urinary symptoms 0376380 08 R39.9 UA done, cx sentprecau tions discussed Health Concerns Section Related Observation LastModified by Organization Detai ls LastModified Time None Recorded Concern Status LastModified by Organization Details LastModified Time None Recorded Advance Directives Directive N: Payers Encounter Date Sequence Insurance Name Policy Number Policy Willett Covered Member ID Willett Member ID Guarantor Name 05/22/2023 1 [facility] (MEDICAID HMO) [id number] Joann Parson [id number] Joann Parson 05/27/2023 1 [facility] (MEDICAID HMO) [id number] Joann Parson [id number] Joann Parson 06/03/2023 1 [facility] (MEDICAID HMO) [id number] Joann Parson [id number] Joann Parson 07/08/2023 1 [facility] (MEDICAID HMO) [id number] Joann Parson [id number] Joann Parson 11/15/2024 1 [facility] (MEDICAID HMO) [id number] Joann Parson [id number] Joann Parson Notes Date Note Type Note [...] urinary incontinence; no problems; no mastitis;baby blues; dr told her to stop lexapro 3rd trimester, wants to restart, no suicidal thoughtsNotes:litjohan e support, has mother, wants to restart lexaprowas thinking tubal ligation, but changed her mind, declines [facility] Savanna laird, [facility] 07/09/2023 09:35:22 11/15/2024 text/html Annual GYNReport [...] to be improving todayneg dysuria JENNA Santos [address], [place], [address], [place] [facility] 11/16/2024 09:39:16 OBGyn Episode Ob Episode Information Episode Created Date Number of Fetuses Patient Bloodtype Patient rh Status Prepregnancy Weight lbs Domestic Partner Domestic Partner Phone Father Name Boat Carpenter Status 12/03/19 23 1 O Positive 131 CLOSED Fetus Data First Name Last Name Admitted to NICU Weight (g) Sex Living Outcome Pediatric Complications Fetus ID Race Codes Race Delivery Type 3509.66 80 F true Full Term 55800 Vaginal Delivery Problems Problem Notes Problem Name Start Date End Date Resolution Snomed Code Not e Placenta circumvallata 3175780 growth Anxiety in 061472480 94601 lexapro, weaned off 20w- wants to restart [...] Date Ultra Sound Latest Days Gestation 0 12/02/2022 06/10/20 23 0 Pre-floridalma Flowsheet Flowsheet Date 12/02/2022 Freeman Score Blood Edema Fundus Height Fundus Units Glucose Ketones Leukocytes Nitrite Labor Signs Protein Cervic Dilation Cervic Effacement Cervic Station neg none none trace Type Weight in lbs Pre/Post Dialysis Refused Weight 133.195104041141 BP Diastolic BP Location Tested BP Systolic [...] Weight in lbs Pre/Post Dialysis Refused Weight 140.625241947716 BP Diastolic BP Location Tested BP Systolic [...] Weight in lbs Pre/Post Dialysis Refused Weight 145.5450017961 BP Diastolic BP Location Tested BP Systolic [...] Weight in lbs Pre/Post Dialysis Refused Weight 152.941565236618 BP Diastolic BP Location Tested BP Systolic [...] Weight in lbs Pre/Post Dialysis Refused Weight 157.514958347538 BP Diastolic BP Location Tested BP Systolic [...] Weight in lbs Pre/Post Dialysis Refused Weight 161.182812414028 BP Diastolic BP Location Tested BP Systolic [...] Weight in lbs Pre/Post Dialysis Refused Weight 164.253198187644 BP Diastolic BP Location Tested BP Systolic [...] Weight in lbs Pre/Post Dialysis Refused Weight 169.522178642133 BP Diastolic BP Location Tested BP Systolic [...] Weight in lbs Pre/Post Dialysis Refused Weight 171.598327631749 BP Diastolic BP Location Tested BP Systolic [...] Weight in lbs Pre/Post Dialysis Refused Weight 171.210765784290 BP Diastolic BP Location Tested BP Systolic [...] Weight in lbs Pre/Post Dialysis Refused Weight 173.581395853802 BP Diastolic BP Location Tested BP Systolic [...] Estim ated Date of Delivery false Thalassemia (Ecuadorean, Austrian, Mediterranean, Or Background): MCV < 80 false Neural Tube Defect (Meningomyelocele, Spina Bifi da, Or Anencephaly) false Congenital Heart Defect false Down Syndrome false Rashid-Sachs (eg, Zoroastrian, Cajun, Greenlandic-Bhutanese) f alse Misti Disease false Sickle Cell Disease Or Trait () false Hemophilia Or Other Blood Disorders false Muscular Dystrophy false Cystic Fibrosis false Rutherford's Chorea false Intellectual Disability/Autism false If Yes, [...] d Regional-Ep idural 39.2 false Mariana Motley CNWalter Anxiety in , Placenta circumval gardenia Discharge Information Feeding Method Contraceptive Method Maternal HG B and HCT Levels Ob Episode Information Episode Created Date Number of Fetuses Patient Bloodtype Patient rh Status Prepregnancy Weight lbs Domestic Partner Domestic Partner Phone Father Name Boat Carpenter Status 06/26/20 21 1 O Positive CLOSED Fetus Data First Name Last Name Admitted to NICU Weight (g) Sex Living Outcome Pediatric Complications Fetus ID Race Codes Race Delivery Type Emre 3033.39 64 M true Full Term Gastric Aspirate 8 ccs & Meconium 10601 Vaginal Delivery Problems Problem Notes declines flu and COVID vacci vianca. Problem Name Start Date End Date Resolution Snomed Code Not e Marginal insertion of umbilical cord 39209399 serial growth Venous escoto 365683582 resolved Group B Streptococcus carrier 0622906184377 Daniel Calculation Initial Daniel Date Initial Exam [...] Gestation 0 [email or web address] 06/26/2021 08/14/19 22 0 Pre- Flowsheet Flowsheet Date 06/26/2021 Freeman Score Blood Edema Fundus Height Fundus Units Glucose Ketones Leukocytes Nitrite Labor Signs Protein Cervic Dilation Cervic Effacement Cervic Station 32 Type Weight in lbs Pre/Post Dialysis Refused Weight 150.794022665638 BP Diastolic BP Location Tested BP Systolic [...] Present Fetus Movement Comments Flowsheet Date 07/09/2021 Rfeeman Score Blood Edema Fundus Height Fundus Units Glucose Ketones Leukocytes Nitrite Labor Signs Protein Cervic Dilation Cervic Effacement Cervic Station neg trace 32 none trace Type Weight in lbs Pre/Post Dialysis Refused Weight 153.231634040057 BP Diastolic BP Location Tested BP Systolic [...] Weight in lbs Pre/Post Dialysis Refused Weight 154.648810518106 BP Diastolic BP Location Tested BP Systolic [...] Weight in lbs Pre/Post Dialysis Refused Weight 158.485935343242 BP Diastolic BP Location Tested BP Systolic [...] Estim ated Date of Delivery false Thalassemia (Ecuadorean, Austrian, Mediterranean, Or Background): MCV < 80 false Neural Tube Defect (Meningomyelocele, Spina Bifi da, Or Anencephaly) false Congenital Heart Defect false Down Syndrome false Rashid-Sachs (eg, Zoroastrian, Cajun, Greenlandic-Bhutanese) f alse Misti Disease false Sickle Cell Disease Or Trait () false Hemophilia Or Other Blood Disorders false Muscular Dystrophy false Cystic Fibrosis false Rutherford's Chorea false Intellectual Disability/Autism false If Yes, [...] Domestic Partner Domestic Partner Phone Father Name Boat Carpenter Status 06/26/20 21 1 CLOSED Fetus Data First Name Last Name Admitted to NICU Weight (g) Sex Living Outcome Pediatric Complications Fetus ID Race Codes Race Delivery Type 3458.63 [phone] F Full Term [id number] Vaginal Delivery Daniel Calculation Initial Daniel Date [...]
--- OUTSIDE RECORDS SUMMARY | 2024-12-27 10:54 | XMS_ITS | Clinical Summary ---
Author Organization [facility] Address [address] [place] [address] Care Team Providers Care Front Office Associate Name Role Phone Unavailable Primary Care Provider Unavailabl e Source Comments [facility],non-owned Affiliates and Associated Physician Practices is amultiple site organization consisting of ambulatory clinics and hospital sitesin [place], [place], [place] and [place]. This disclosure is being madepursuant to the Care Everywhere program and may not contain all information available regarding this patient. Last updated 18.[facility] [place] Allergies Active Allergy Reactions Criticality Noted Date Comments Honey Itching 05/01/2021 Latex Itching 05/01/2021 Medications * Be aware that medications may not be up to date on this document. Alwaysverify current medications with the patient. nitrofurantoin monohyd macro crystals (MACROBID) 100 MG capsule Take 1 (one) capsule by mouth once daily Take 1 PO qd for remainder of 60 capsule 1 Active Active Problems Problem Noted Date Diagnosed Date [facility]/02[facility]2021 Supervision of normal 05/01/2021 Family History Medical History Relation Name Comments Kidney Disease Maternal Aunt Kidney Disease Mother Relation Name Status Comments Maternal Aunt Mother Social History Tobacco Use Types Packs/Day Years Used Date Smoking Tobacco: Every Day Cigarettes Smokeless Tobacco: Never Tobacco Cessation:Ready to Q uit: No; Counseling Given: Yes Alcohol Use Standard Drinks/Week Comments Not Currently 0 (1 standard drink = 0.6 oz pur e alcohol) Comments No Sex and Gender Information Value Date Recorded Sex Assigned at Not on file Legal 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 Gender Identity Not on file Sexual Orientation Not on file Last Filed Vital Signs Vital Sign Reading Time Taken Comments Blood Pressure 102/67 05/02/2021 4:30 AM CDT Pulse - - Temperature 36.8 C (98.2 F) 05/02/2021 4:30 AM CDT Respiratory Rate 18 05/02/2021 4:30 AM CDT Oxygen Saturation 100% 05/02/2021 4:30 AM CDT Inhaled Oxygen Concentration - - Weight 62.6 kg (138 lb) 05/01/2021 3:23 PM CDT Height 160 cm (5' 3) 05/01/2021 3:44 PM CDT Body Mass Index 24.45 05/01/2021 3:23 PM CDT Plan of Treatment Health Maintenance Due Date Last Done Comments HIV SCREENING 2014 HPV VACCINE (1 - 3-dose series) 2014 CHLAMYDIA/GONORRHEA SCREENING 2015 HEPATITIS C SCREENING 09/07/2017 DTAP/TDAP/TD VACCINES (1 - Tdap) 2018 HEPATITIS B VACCINE (1 of 3 - 19+ 3-dose series) 2018 COVID-19 VACCINE (1 - 2023-2 5 season) 2024 DEPRESSION SCREENING 08/03/2024 INFLUENZA VACCINE (Season Ended) 2025 ZOSTER VACCINE (1 of 2) 2049 HIB VACCINE Aged Out No longer eligi ble based on patient's age to complete this topic MENINGOCOCCAL (Group B) VACC INE SHARED DECISION-MAKING Aged Out No longer eligibl e based on patient's age to complete this topic MENINGOCOCCAL GROUPS A/C/Y/W VACCINE Aged Out No longer eligible b ased on patient's age to complete this topic PNEUMOCOCCAL VACCINE Aged Out No long er eligible based on patient's age to complete this topic [place] [address] [address] [employer] [facility] [address] Advance Directives * Full Code (Latest Code Status on File) Date Activated Date Inactivated Comments 05/01/2021 5:03 PM 05/02/2021 11:59 AM * Full Code Date Activated Date Inactivated Comments 05/01/2021 3:28 PM 05/01/2021 5:03 PM
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
[2024-12-27 12:11] LABS: Beta HCG Quantitative 177.94 mIU/ML
== END 2024-12-27 10:46 | disposition home or self-care (01) ==
LOC: ANHLAB 10:50
PROVIDERS: PCP Nurse Practitioner Family; Visit Provider Advanced Practice Midwife
DX: O20.0 Threatened abortion (principal); Z3A.00 Weeks of gestation of pregnancy not specified
CPT/HCPCS: 36415; 84702

== ENCOUNTER 2025-05-24 09:44 | Emergency (ER) | payer OTHER, SELFPAY ==
[2025-05-24 09:41] VITALS: BP 118/67; PULSE 85; RESP 16; O2SAT 100
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
[2025-05-24 11:06] VITALS: BP 97/67; PULSE 103; RESP 16; O2SAT 99
[2025-05-24] MEDS: ACETAMINOPHEN 500 MG TABLET 1000 MG PO (11:07)
--- OUTSIDE RECORDS SUMMARY | 2025-05-24 14:29 | XMS_ITS | Data Portability ---
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 Karley Monteiro at [facility] Call office if worse, ER if life-threatening illness RTC in 4 months She voices understanding of plan and agrees [email or web address] Not available 04/10/2023 12:54:23 Plan of Treatment Reminders Order Date Submit Date Provider Last Modified By Organization Details Last Modified Time Details Appointments New Patient 15 2024 02:15P Walter Benson DPM Not available Not available Not available Lab CBC w/ auto diff 2024 025 [facility] (Lab), [address] [place], [address], 08/26/2024 08:12:59 CMP, serum or plasma 2024 025 [facility] (Lab), [address] [place], [address], 08/26/2024 08:12:59 lipid panel, serum 2024 025 [facility] (Lab), [address] [place], [address], 08/26/2024 08:12:59 TSH + free T4, serum 2024 025 [facility] (Lab), [address] [place], [address], 08/26/2024 08:12:59 hepatitis C virus Ab, serum 2024 025 [facility] (Lab), [address] [place], [address], 09/01/2024 07:39:26 HbA1c (hemoglob in A1c), blood 2024 025 [facility] (Lab), [address] [place], [address], 08/26/2024 08:12:59 Referral cardiotho racic vascular surgeon referral - Please call patient to schedule an appointme nt. Thank you. 2024 025 [email or web address] Mayco Shane, [address] [facility], [address], [place], [address], Ph [phone] 10/06/2024 09:39:21 cardiolog ist referral - Please call patient to schedule an appointme nt. Thank you. 2024 025 [email or web address] [facility], [address], [place], [address], 10/06/2024 09:40:09 Procedures None recorded. Surgeries None recorded. Imaging None recorded. Medication Orders meclizine 25 mg tablet 2024 025 [place] [facility][id number], [address], [place], [place], [id number], 10/20/2024 11:41:52 albuterol sulfate HFA 90 mcg/actua tion aerosol inhaler 2024 025 [facility] #[id number], [address], [place], [place], [id number], 10/20/2024 11:41:53 ibuprofen 600 mg tablet 2024 025 [facility] #[id number], [address], [place], [place], [id number], 08/25/2024 16:02:09 escitalop danielle 10 mg tablet 2024 025 [facility] #[id number], [address], [place], [place], [id number], 08/25/2024 16:02:08 Patient TargetsNo targets recorded. Patient Instructions Encounter Date Encounter Id Patient Instructions Last Modified By Organization Details Last Modified Time 08/25/2024 [id number] Follow up in 3 months Obtain labs Tests: Referral: [facility]iology-[facility] [place] [facility] Recommend: Not available 08/25/2024 15:58:23 10/20/2024 [id number] Follow up in 3 months Prescriptions sent to pharmacy Tests: Referral: Recommend: Not available 10/20/2024 11:41:37 Reason for Referral Cardiothoracic Vascular Surg jerry Referral for Pericardial cyst Please call patient to schedule an appointment. Thank you. Referring Physician: Azra Rios, Internal Medicine, Encounter Date: 08/25/2024 Offset Pressman Referral for Pe ricardial cyst Please call patient to schedule an appointment. Thank you. Referring Physician: Azra Rios, Internal Medicine, Encounter Date: 08/25/2024 Results Created Date Observation Date Name Description Value Unit Range Abnormal Flag Note LastModifiedBy Organization Detail LastModifiedTime 09/19/1909/19/2022 URINA LYSIS COMPL ETE/I RIS W/RFX color yellow Not Available [facility] (Lab) [address] [facility], [place], [address], 09/19/2022 18:20:29 09/19/1909/19/2022 URINA LYSIS COMPL ETE/I RIS W/RFX appear clear Not Available [facility] (Lab) [address] [place], [address], 09/19/2022 18:20:29 09/19/19 23 09/19/2022 URINA LYSIS COMPL ETE/I RIS W/RFX specific gravity 1.031 1.001- 1.030 high Not Available [facility] (Lab) [address] [place], [address], 09/19/2022 18:20:29 09/19/19 23 09/19/2022 URINA LYSIS COMPL ETE/I RIS W/RFX pH 6.0 pH_un its 5.0-9. 0 Not Available [facility] (Lab) [address] [place], [address], 09/19/2022 18:20:29 09/19/19 23 09/19/2022 URINA LYSIS COMPL ETE/I RIS W/RFX leukocytes negati ve ksenia/u L negati ve- Not Available [facility] (Lab) [address] [place], [address], 09/19/2022 18:20:29 09/19/19 23 09/19/2022 URINA LYSIS COMPL ETE/I RIS W/RFX nitrite negati ve negati ve- Not Available [facility] (Lab) [address] [place], [address], 09/19/2022 18:20:29 09/19/19 23 09/19/2022 URINA LYSIS COMPL ETE/I RIS W/RFX protein 10 mg/dL negati ve- abnormal Not Available [facility] (Lab) [address] [place], [address], 09/19/2022 18:20:29 09/19/19 23 09/19/2022 URINA LYSIS COMPL ETE/I RIS W/RFX glucose normal mg/dL normal - Not Available [facility] (Lab) [address] [place], [address], 09/19/2022 18:20:29 09/19/19 23 09/19/2022 URINA LYSIS COMPL ETE/I RIS W/RFX ketones negati ve mg/dL negati ve- Not Available [facility] (Lab) [address] [place], [address], 09/19/2022 18:20:29 09/19/19 23 09/19/2022 URINA LYSIS COMPL ETE/I RIS W/RFX urobilinogen normal mg/dL normal - Not Available [facility] (Lab) [address] [place], [address], 09/19/2022 18:20:29 09/19/19 23 09/19/2022 URINA LYSIS COMPL ETE/I RIS W/RFX bilirubin negati ve mg/dL negati ve- Not Available [facility] (Lab) [address] [place], [address], 09/19/2022 18:20:29 09/19/19 23 09/19/2022 URINA LYSIS COMPL ETE/I RIS W/RFX blood negati ve mg/dL negati ve- Not Available [facility] (Lab) [address] [place], [address], 09/19/2022 18:20:29 09/19/19 23 09/19/2022 URINA LYSIS COMPL ETE/I RIS W/RFX white blood cells 0-8 /i??h pfi?? 0-8 Not Available [facility] (Lab) [address] [place], [address], 09/19/2022 18:20:29 09/19/19 23 09/19/2022 URINA LYSIS COMPL ETE/I RIS W/RFX red blood cells 0-4 /i??h pfi?? 0-4 Not Available [facility] (Lab) [address] [place], [address], 09/19/2022 18:20:29 09/19/19 23 09/19/2022 URINA LYSIS COMPL ETE/I RIS W/RFX bacteria none Not Available [facility] (Lab) [address] [place], [address], 09/19/2022 18:20:29 09/19/19 23 09/19/2022 URINA LYSIS COMPL ETE/I RIS W/RFX mucous occasi onal /i??l pfi?? abnormal Not Available [facility] (Lab) [address] [place], [address], 09/19/2022 18:20:29 09/19/19 23 09/19/2022 URINA LYSIS COMPL ETE/I RIS W/RFX squamous epithelial many /i??l pfi?? abnormal Not Available [facility] (Lab) [address] [place], [address], 09/19/2022 18:20:29 09/19/19 23 09/19/2022 URINA LYSIS COMPL ETE/I RIS W/RFX hyaline cast occasi onal /i??l pfi?? none seen- abnormal Not Available [facility] (Lab) [address] [place], [address], 09/19/2022 18:20:29 08/28/19 23 08/28/2022 jenise r monit or No observ ation record ed. [id number] [facility] [address], [place], [address], 10/02/2022 01:54:54 09/19/19 23 09/19/2022 XR, thora cic spine , 3 view [facility] [address] [place] [address] [place] Name: PIETER GRAVSE Access ion #: [id number] Sex: F : 2000 3 Locati [...] thorac ic spine. Page 1 of 2 [facility] Román t Name: PIETER GRAVES Access ion #: [id number] Sex: F : 2000 3 Exam Date: 023 4:09 PM Exam Name: XR T SPINE 3V Admitt ing Diagno sis(es ): Create d and electr onical ly signed by: Gray montana MD Signed Date: 8:02 PM (CT) Dictat ed by: Gray montana MD DD: 023 8:02 PM (CT) DT: 023 8:02 PM (CT) Page 2 of 2 [id number] [facility] (Imaging) [address] [place], [address], 10/02/2022 01:54:54 09/19/19 23 09/19/2022 XR, lumba r spine [facility] [address] [place] [address] [phone] [place] Name: PIETER GRAVES R Access ion #: [id number] Sex: F : 2000 3 Locati [...] the lumbar spine. Page 1 of 2 [facility] Román t Name: PIETER GRAVES R Access ion #: [id number] Sex: F : 2000 3 Exam Date: 023 4:22 PM Exam Name: XR L SPINE 4V+ Admitt ing Diagno sis(es ): Create d and electr onical ly signed by: Gray montana MD Signed Date: 7:58 PM (CT) Dictat ed by: Gray montana MD DD: 023 7:58 PM (CT) DT: 023 7:58 PM (CT) Page 2 of 2 [id number] [facility] (Imaging) [address] [place], [address], 10/02/2022 01:54:54 09/16/19 24 09/16/2023 US, echoc ardio gram No observ ation record ed. [facility] [address], [place], [address], 11/12/2023 09:28:21 Result Notes Documentation Provider Name and Address Organization Details Recorded Time Xr, Lumbar Spine : [address] [address] Patient Name: KANDI GRAVES Sex: F : 2000 Location: [facility] Attending Physician: MAX BAJWA Ordering Physician: MAX BAJWA Exam Date: 09/19/2022 4:22 PM Exam Name: XR L SPINE 4V+ Admitting Diagnosis(es): RADIOLOGY REPORT - FINAL EXAM: XR L SPINE 4V+ HISTORY: Low back pain 22-year-old female with low back pain, no known injury. COMPARISON: None available. TECHNIQUE: Five views of the lumbar spine were performed. FINDINGS: No fracture or listhesis of the lumbar spine. No significant degenerative changes. The oblique films do not demonstrate spondylolysis. Surgical clips in the right upper quadrant are consistent with prior cholecystectomy. IMPRESSION: No fracture or significant degenerative changes about the lumbar spine. Page 1 of 2 [facility] Patient Name: KANDI GRAVES Sex: F : 2000 Exam Date: 09/19/2022 4:22 PM Exam Name: XR L SPINE 4V+ Admitting Diagnosis(es): Created and electronically signed by: Gray Tyler MD Signed Date: 09/19/2022 7:58 PM (CT) Dictated by: Gray Tyler MD (CT) (CT) Page 2 of 2 Not Available [facility] 10/02/2022 01:54:55 Xr, Thoracic Spine, 3 View : [facility] [address] [place] [address] Patient Name: KANDI GRAVES Sex: F : 2000 Location: [facility] Attending Physician: MAX BAJWA Ordering Physician: MAX BAJWA Exam Date: 09/19/2022 4:09 PM Exam Name: XR T SPINE 3V Admitting Diagnosis(es): RADIOLOGY REPORT - FINAL EXAM: XR T SPINE 3V HISTORY: pain in thoracic spine 22-year-old female with back pain, no known injury. COMPARISON: None available. TECHNIQUE: Three views of the thoracic spine were performed. FINDINGS: No fracture, listhesis, or scoliosis are identified about the thoracic spine. No significant degenerative changes. Surgical clips in the right upper quadrant are consistent with prior cholecystectomy. IMPRESSION: No fracture or significant degenerative changes about the thoracic spine. Page 1 of 2 [facility] Patient Name: KANDI GRAVES Sex: F : 2000 Exam Date: 09/19/2022 4:09 PM Exam Name: XR T SPINE 3V Admitting Diagnosis(es): Created and electronically signed by: Gray Tyler MD Signed Date: 09/19/2022 8:02 PM (CT) Dictated by: Gray Tyler MD (CT) (CT) Page 2 of 2 Not Available [facility] 10/02/2022 01:54:55 Problems Name Problem SNOMED Code Status Onset Date Resolution Date Notes Provider Name and Address Organization Details Recorded Time Intermittent palpitations 907832365 Active 2022 Not Available [employer] 3 15:35:35 Atypical chest pain 950144877 Active 2022 Not Available [employer] 3 15:35:35 Generalized anxiety disorder 44313500 Active 2022 Azra Rios APRN [address] [facility], [facility] [address], [place], [address] , [facility] [employer] [facility] 5 10:18:14 Thoracic back pain 510962378 Active 2022 Not Available [facility] 3 15:35:35 Low back pain 783397451 Active 2022 Not Available [facility] 3 15:35:35 Urinary symptoms 418857825 Active 2022 Not Available [facility] 3 15:35:35 Sciatica 28867054 Active 2022 Azra Rios APRN [address], [address], [place], [address] , [facility] 5 10:18:23 Pericardial effusion 873490163 Active 2024 Azra Rios APRN [address], [address], [place], [address] , [place] [facility] 5 15:48:35 Pericardial cyst 923369023 Active 2024 Azra Rios APRN [address], [address], [place], [address] , [facility] - [facility] 5 15:48:48 Fever 822177379 Active 2024 Azra Rios APRN [address], [address], [place], [address] , [facility] - [facility] 5 16:00:48 Lightheadedne ss 265179595 Active [address], [address], [place], [address] , [facility] - [facility] 5 11:34:36 Dyspnea 082547643 Active [address], [address], [place], [address] , [facility] - [facility] 5 11:36:50 Problem Notes None recorded. Procedures Surgical History Date Name Laterality Status Provider Name and Address Organization Details Recorded Time Cholecystectomy completed Not Available [employer] [facility] 10/02/2022 01:53:05 Imaging Results None recorded. Procedure Notes None recorded. Medical Equipment None Reported. Allergies Allergen ID Allergen Name Allergen Category Reaction Reaction Severity Criticality Documentation Date Start Date Code Code System Note Provider Name and Address Organization Details Recorded Time 16384 metoclopr amide Not available Not available Not available Not available 08/23/2024 6915 RxNorm Other react ions and sever ities : 'Adve rse react ion to subst ance' . Azra Rios, ADMINISTRATIVE ASSISTANT [address] [facility], [facility] [address], [place], [address], [facility] [employer] 10:15:09 Medications Name Sig Start Date Stop [...] Heart rate Body temperature Body weight Systolic And Diastolic Provider Name and Address Organization Details Last Updated DateTime 3 21.4 kg/m2 160.02 cm 98 % 98 % 88 /min 97.8 [degF] 26388.6 8 g 112/72 mm[Hg] Not Available [facility] 3 01:53:46 Date Recorded Body mass index (BMI) Body height Provider Name and Address Organization Details Last Updated DateTime 10/20/2024 21.1 kg/m2 160.02 cm Azra Rios APRN [address] [facility], [facility] [address], [address], [facility] [employer] 10/20/2024 11:25:16 Date Recorded Body weight Heart rate Oxygen saturation Oxygen saturation in Arterial blood by Pulse oximetry Body temperature Systolic And Diastolic Provider Name and Address Organization Details Last Updated DateTime 5 65925.4 9 g 87 /min 99 % 99 % 98.2 [degF] 110/64 mm[Hg] Mary Alice Heredia [place] [employer] [facility] [employer] 5 11:17:22 Date Recorded Body height Body mass index (BMI) Body weight Body temperature Heart rate Oxygen saturation Oxygen saturation in Arterial blood by Pulse oximetry Systolic And Diastolic Provider Name and Address Organization Details Last Updated DateTime 3 160.02 cm 23.2 kg/m2 33037.6 g 97.6 [degF] 78 /min 99 % 99 % 118/78 mm[Hg] Doretha Carvalho [place] [employer] [facility] [employer] 3 16:38:36 Date Recorded Body height Body mass index (BMI) Body weight Body temperature Heart rate Oxygen saturation Oxygen saturation in Arterial blood by Pulse oximetry Systolic And Diastolic Provider Name and Address Organization Details Last Updated DateTime 3 160.02 cm 28.3 kg/m2 62835.7 8 g 97.8 [degF] 94 /min 98 % 98 % 122/74 mm[Hg] JV Xavier [place] [employer] 3 10:19:44 Social History Question Answer Notes LastModified by Organizat ion Details LastModified Time Tobacco Smoking Status Former Smoker Not Available [facility] 10/02/2022 01:52:52 What Is Your Level Of Caffeine Consumption? Occasional [id number] Information not available 10/02/2022 In The 14 Days Before Symptom Onset, Have You Had Close Contact With A Laboratory-confir med COVID-19 While That Case Was Ill? No [id number] Information not available 10/02/2022 In The 14 Days Before Symptom Onset, Have You Had Close Contact With A Person Who Is Under Investigation For COVID-19 While That Person Was Ill? No [id number] Information not available 10/02/2022 What Type Of Diet Are You Following? REGULAR MIGRATION.934359 2441 Information not available 10/02/2022 What Is The Highest Grade Or Level Of School You Have Completed Or The Highest Degree You Have Received? [id number] MIGRATION.422692 5486 Information not available 10/02/2022 Have There Been Any Changes To Your Family Or Social Situation? No MIGRATION.254485 7739 Information not available 10/02/2022 What Is The Fluoride Status Of Your Home? Unknown [id number].[id number] 1138 Information not available 10/02/2022 Are There Any Guns Present In Your Home? Yes MIGRATION.485684 2376 Information not available 10/02/2022 Do You Use Insect Repellent Routinely? No [id number].652240 2791 Information not available 10/02/2022 Where Do You Live? [place] MIGRATION.[id number] 1599 Information not available 10/02/2022 What Was The Date Of Your Most Recent Tobacco Screening? 10/20/2024 Information not available 10/20/2024 Do You Have Any Pets? Yes MIGRATION.913711 2370 Information not available 10/02/2022 Do You Use Your Seat Belt Or Car Seat Routinely? Yes Information not available 10/20/2024 Do You Have Smoke And Carbon Monoxide Detectors In Your Home? Yes MIGRATION.912526 4026 Information not available 10/02/2022 Are You Passively Exposed To Smoke? Yes [id number].911702 1942 Information not available 10/02/2022 Are There Any Smokers In Your House? No MIGRATION.630880 7261 Information not available 10/02/2022 Do You Use Sunscreen Routinely? Yes MIGRATION.396242 1191 Information not available 10/02/2022 Have You Recently Traveled Abroad? No MIGRATION.584635 7050 Information not available 10/02/2022 Do You Have Any Dietary Restrictions? No MIGRATION.660264 8985 Information not available 10/02/2022 Sex: Female Functional Status Question Answer Note LastModified by Organizat ion Details LastModified Time Do you use any illicit or recreational drugs? use to smoke cannabis. MIGRATION.477757 1794 Information not available 10/02/2022 Do you or have you ever used any other forms of tobacco or nicotine? No MIGRATION.733989 2532 Information not available 10/02/2022 What is your level of alcohol consumption? 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 Occasional MIGRATION.392653 2798 Information not available 10/02/2022 Mental Status Question Answer Note LastModified by Organizat ion Details LastModified Time Do you feel stressed (tense, restless, nervous, or anxious, or unable to sleep at night)? [id number] 6 Information not available 10/02/2022 Family History Nothing Reported. Medical History No medical history recorded. Gynecological HistoryNo gynecological history recorded. Obstetrics History GPAL:G 0 P 0 0 0 0 Immunizations Vaccine Type Date Status Note Provider Nam e and Address Organization Details Recorded Time Influenza, split virus, quadrivalent, preservative 7 completed Azra Rios APRN [address], [address], [place], [address], [facility] [employer] 08/23/2024 10:14:57 Hib, unspecified formulation 0 completed Azra Rios APRN [address], [address], [place], [address], [place] [facility] 08/23/2024 10:14:57 Hib, unspecified formulation 0 completed Azra Rios APRN [address], [address], [place], [address], [facility] 08/23/2024 10:14:57 Hib, unspecified formulation 0 completed Azra Rios APRN [address], [address], [place], [address], [facility] 08/23/2024 10:14:57 HPV9 5 completed Azra Rios APRN [address], [address], [place], [address], [facility] 08/23/2024 10:14:57 IPV 0 completed Azra Rios APRN [address], [address], [place], [address], [facility] 08/23/2024 10:14:57 IPV 1 completed Azra Rios APRN [address], [address], [place], [address], [facility] 08/23/2024 10:14:57 IPV 0 completed Azra Rios APRN [address], [address], [place], [address], [facility] 08/23/2024 10:14:57 IPV 0 completed Azra Rios APRN [address], [address], [place], [address], [facility] 08/23/2024 10:14:57 MMR 1 completed Azra Rios APRN [address], [address], [place], [address], [facility] 08/23/2024 10:14:57 MMR 5 completed Azra Rios APRN [address], [address], [place], [address], [facility] 08/23/2024 10:14:57 Tdap 1 completed Azra Rios APRN [address], [address], [place], [address], [place] [facility] 08/23/2024 10:14:57 Tdap 7 completed Azra Rios APRN [address], [address], [place], [address], [facility] 08/23/2024 10:14:57 Tdap 1 completed Azra Rios APRN [address], [address], [place], [address], [facility] 08/23/2024 10:14:57 varicella 1 completed Azra Rios APRN [address], [address], [place], [address], [facility] 08/23/2024 10:14:57 varicella 5 completed Azra Rios APRN [address], [address], [place], [address], [facility] 08/23/2024 10:14:57 varicella 7 completed Azra Rios APRN [address], [address], [place], [address], [facility] 08/23/2024 10:14:57 HPV, quadrivalent 4 completed Azra Rios APRN [address], [address], [place], [address], [facility] 08/23/2024 10:14:57 Hep B, adolescent or pediatric 0 completed [address]AR [address], [address], [place], [address], [facility] 08/23/2024 10:14:57 Hep B, adolescent or pediatric 0 completed Azra Rios APRN [address], [address], [place], [address], [facility] 08/23/2024 10:14:57 Hep B, adolescent or pediatric 0 completed Azra Rios APRN [address], [address], [place], [address], [employer] [facility] 08/23/2024 10:14:57 Hep A, ped/adol, 2 dose 4 completed Azra Rios APRN [address], [address], [place], [address], [facility] 08/23/2024 10:14:57 Hep A, ped/adol, 2 dose [address], [address], [place], [address], [facility] 08/23/2024 10:14:57 Hib (PRP-OMP) [address], [address], [place], [address], [facility] 08/23/2024 10:14:57 meningococcal MCV4P 4 completed Azra Rios APRN [address], [address], [place], [address], [employer] [facility] 08/23/2024 10:14:57 DTaP 5 [address], [address], [place], [address], [facility] 08/23/2024 10:14:58 DTaP [address], [address], [place], [address], [employer] [facility] [employer] 08/23/2024 10:14:58 DTaP [address], [address], [place], [address], [employer] [facility] [employer] 08/23/2024 10:14:58 DTaP 0 completed Azra Rios APRN [address], [address], [place], [address], [facility] [employer] [facility] [employer] [facility] 08/23/2024 10:14:58 DTaP 0 completed Azra Rios APRN [address], [address], [place], [address], [facility] [employer] [facility] [employer] [facility] 08/23/2024 10:14:58 Hep A-Hep B 6 completed Azra Rios APRN [address], [address], [place], [address], [facility] [employer] [facility] [employer] 08/23/2024 10:14:58 Hep A-Hep B 6 completed Azra Rois APRN [address], [address], [place], [address], [facility] [employer] [facility] [employer] 08/23/2024 10:14:58 Hep A-Hep B 6 completed Azra Rios APRN [address], [address], [place], [address], [employer] [facility] [employer] 08/23/2024 10:14:58 Tdap 3 completed Azra Rios APRN [address], [address], [place], [address], [facility] [employer] [facility] [employer] 08/25/2024 15:30:35 Past Encounters Encounter ID Performer Location Encounter Start Date Encounter Closed Date Diagnosis/Indication Diagnosis SNOMED-CT Code Diagnosis ICD10 Code Diagnosis IMO Codes Diagnosis Note [id number] Pardeep castellanos MD [facility] [address] [place] [address] 08/15/2022 00:00:00 08/15/2022 15:49:25 [id number] MD MAJOR [facility] [address] [place] [address] 09/19/2022 00:00:00 09/19/2022 17:12:41 [id number] Elizabeth Kate NP [facility] [address] [address] 09/04/2022 00:00:00 09/17/2022 14:38:08 [id number] Pardeep castellanos MD [facility] Internal [facility] [address] [facility], [facility] 15 [place] [address] 11/21/2022 16:30:55 11/21/2022 16:49:16 Intermittent palpitations 151944311 R00.2 Now following cardiology - Dr. Rangel /p workup- all normal Atypical chest pain 1025 18024 R07.89 s/p cardiac workup as aboveER precaution s Generalize d anxiety disorder 76420161 F41.1 on Lexapro-sh e is aware of side effects, risks, and benefitsCa ll office if any change in mood or behaviordi d see psychiatry - Elizabeth at [facility], doesn't want to go backRecomm end counseling -name/numb ers provided, along with a 24 hour crisis lineOffere d IOP referral, she declinesSh e can commit to safety today, she agrees to go to ER or call 911 if she becomes unsafe 86619561 Z33.1 Continue PNV Continue following with OB Sciatica 54301170 M54.30 Now resolved after PT [id number] Pardeep castellanos MD [facility] Internal Med [facility] [address] [facility], [facility] [address] [place] [address] 04/10/2023 10:12:46 04/10/2023 10:47:17 Intermittent palpitations 744789172 R00.2 Now following cardiology - Dr. Rangel /p workup- all normal Atypical chest pain 1025 21494 R07.89 s/p cardiac workup as aboveER precaution s Generalize d anxiety disorder 59828359 F41.1 OB stopped her lexaproCal l office if any change in mood or behaviordi d see psychiatry - Elizabeth at [facility], doesn't want to go backRecomm end counseling -name/numb ers provided, along with a 24 hour crisis lineShe can commit to safety today, she agrees to go to ER or call 911 if she becomes unsafe 91420294 Z33.1 Continue PNVContinu e following with OBTdap will need to come from pharmacy or health dept due to her insurance Sciatica [id number] M54.30 Now resolved after PT [id number] Pardeep castellanos MD [facility] Internal Med [facility] [address] [facility], [address] [address] 08/25/2024 14:58:03 08/25/2024 16:07:26 Diabetes mellitus screening 195279184 Z13.1 Hyperlipid emia screening 580310353 Z13.220 Screening for disorder 513138994 Z13.9 Thyroid di sorder screening 713731486 Z13.29 Hepatitis C screening 41 0602888 Z11.59 Pericardial cyst 1112312 02 I31.8 Generalize d anxiety disorder 15743006 F41.1 Fever 141669289 R50.9 [id number] Pardeep castellanos MD [facility] Internal Med [facility] [address] [facility] [address] [place] [address] 10/20/2024 11:01:51 10/20/2024 11:46:38 Lightheadedness 611637667 R42 Dyspnea 958918853 R06.00 Health Concerns Section Related Observation LastModified by Organization Detai ls LastModified Time None Recorded Concern Status LastModified by Organization Details LastModified Time None Recorded Advance Directives Directive None Recorded Payers Insurance Date Sequence Insurance Name Policy Number Policy Willett Covered Member ID Willett Member ID Guarantor Name 05/10/2025 1 [facility] (MEDICAID HMO) [id number] Kandi Eb [id number] Kandi Graves Notes Date Note Type Note Provider Name and Address Organization Details Recorded Time 11/21/2022 text/html Kandi presents today for follow up. She is now approximately 11 weeks . She is following Dr. Karley Monteiro at [facility]. She is taking her vitamin. We had [...] mood meds if possible. JENNY Person [address], [address], [place], [address], [employer] 11/21/2022 17:08:00 04/10/2023 text/html Kandi presents today for follow up. She is [...] sciatica with this . JENNY Person [address], [address], [place], [address], [employer] 04/10/2023 13:40:13 08/25/2024 text/html Kandi presents today to establish care. Patient was recently in the ED at [facility] for chest pain and respiratory infection. She said that they did a CT scan and EKG, Azra Rios APRN [address], [address], [place], [address], [employer] 08/25/2024 16:02:45 10/20/2024 text/html Kandi presents today for 3 month follow up. She states that she has been having some issues with dizziness. She also states that she has had pain in her joints. She stood up in the office and pushed on her hips and her hips/back had and audible pop. 08/25/2024Kandi presents today to establish care. Patient was recently in the ED at [facility] for chest pain and respiratory infection. She said that they did a CT scan and EKG, Azra Rios APRN [address], [facility] [address], [place], [address], [facility] 10/20/2024 11:41:47 OBGyn Episode No OBEpisode recorded.
--- OUTSIDE RECORDS SUMMARY | 2025-05-24 14:29 | XMS_ITS | Clinical Summary ---
Author Organization [facility] [address] Address [address] [place] [address] Care Team Providers Care Manager Dish Name Role Phone Azra Rios NP Primary Care Provider [phone] Allergies Active Allergy Reactions Criticality Noted Date Comments Honey Hives,Itching High 05/01/2021 Latex Rash Medium 10/18/2024 Metoclopramide Muscle pain Medium 10/18/2024 Medications albuterol HFA (PROVENTIL HFA,VENTOLIN HFA,PROAIR HFA) 90 mcg/actuation inhaler Inhale 2 puffs every 6 (six) hours as needed for wheezing Active escitalopram (LEXAPRO) 10 mg tablet Take 1 tablet (10 mg total) by mouth nightly Active ibuprofen (ADVIL,MOTRIN) 600 mg tablet Take 1 tablet (600 mg total) by mouth every 6 (six) hours as needed for pain Active Active Problems Problem Noted Date Diagnosed Date Pericardial cyst 09/13/2024 Pericardial effusion 09/13/2024 Atypical chest pain 09/13/2024 Generalized anxiety disorder 09/13/2024 Palpitations 09/13/2024 Sciatica 09/13/2024 Thoracic back pain 09/13/2024 Low back pain 09/13/2024 Lower urinary tract symptoms (LUTS) 09/13/2024 Surgical History Surgery Date Site/Laterality Comments CHOLECYSTECTOMY Medical History Medical History Date Comments Pericardial cyst Pericardial effusion Atypical chest pain Palpitations Sciatica Thoracic back pain Low back pain Generalized anxiety disorder Lower urinary tract symptoms Tricuspid regurgitation Family History Medical History Relation Name Comments Polycystic kidney disease Brother No Known Problems Daughter 1 No Known Problems Daughter 2 No Known Problems Father high blood pressure Maternal Grandfather Cystic kidney disease Mother Hypertension Mother Polycystic kidney disease Sister 1 No Known Problems Son Relation Name Status Comments Brother Alive Daughter 1 Alive Daughter 2 Alive Father Alive Maternal Grandfather Mother Alive Sister 1 Alive Sister 2 Alive Son Alive Social History Tobacco Use Types Packs/Day Years Used Date Smoking Tobacco: Every Day Cigarettes Smokeless Tobacco: Never Tobacco Cessation:Ready to Q uit: Not Asked; Counseling Given: Not Answered Comments Unknown Sex and Gender Information Value Date Recorded Sex Assigned at Not on file 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 Gender Identity Not on file Sexual Orientation Not on file Obstetrics History Last Filed Vital Signs Vital Sign Reading Time Taken Comments Blood Pressure 113/71 01/25/2025 12:48 PM CDT Pulse 81 01/25/2025 12:48 PM CDT Temperature 36.8 C (98.2 F) 01/25/2025 12:48 PM CDT Respiratory Rate 18 01/25/2025 12:48 PM CDT Oxygen Saturation 100% 01/25/2025 12:48 PM CDT Inhaled Oxygen Concentration - - Weight 60.6 kg (133 lb 9.6 oz) 01/25/2025 12:48 PM CDT Height 160 cm (5' 3) 10/18/2024 9:20 AM CDT Body Mass Index 23.67 10/18/2024 9:20 AM CDT Plan of Treatment Health Maintenance Due Date Last Done Comments Cervical Cancer Screening 1999 Depression Screening 1999 Hepatitis C Screening 1999 Regular Well Visit/Exam 18-64 2017 Pneumococcal vaccine <65 (1 of 2 - PCV) 2018 Influenza Vaccine (#1) 2025 05/20/2017 DTaP/Tdap/Td Vaccine (10 - T d or Tdap) 04/10/2033 04/10/2023, 05/28/2021, 03/25/2017, Additional history exists HPV Vaccines Completed 07/05/2015, 12/15/2013 Hepatitis B Screening Completed 03/14/2016 , 10/19/2015, 08/17/2015, Additional history exists Varicella Vaccines Completed 06/29/2017, 0 03/07/2011, 03/17/2005 Insurance [facility] Care Teams Manager Dish Relationship Specialty Start Date End Date Azra Rios NP [address] [address] PCP - General Family Medicine 09/13/24
--- OUTSIDE RECORDS SUMMARY | 2025-05-24 14:29 | XMS_ITS | Encounter Summary ---
Author Organization [facility] Address [address] [place] 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 Patients taking R-hqbfxjci-[id number] may show falsely elevated levels of Homocysteine. [...] LAB - BODY FLUID ORDERABLES Final Result [facility] [address] [place] [address] documented in this encounter Visit Diagnoses Diagnosis Abnormal results of other endocrine function studies Encounter for supervision of normal , unspecified, unspecified trimester (HCC) documented in this encounter Care Teams [employer] Relationship Specialty Start Date End Date Horace Guzmán MD [address] [place] [address] PCP - General Pediatrics 01/03/14 12/22/23 documented as of this encounter
--- OUTSIDE RECORDS SUMMARY | 2025-05-24 14:29 | XMS_ITS | Clinical Summary ---
Author Organization [facility] Address [address] [place] [address] Care Team Providers Care Service Delivery Consultant Name Role Phone Unavailable Primary Care Provider Unavailabl e Source Comments [facility],non-owned Affiliates and Associated Physician Practices is amultiple site organization consisting of ambulatory clinics and hospital sitesin [place], [place], [place] and [place]. This disclosure is being madepursuant to the Care Everywhere program and may not contain all information available regarding this patient. 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 Gender Identity Not on file Sexual Orientation [...] of 3 - 19+ 3-dose series) 2018 DEPRESSION SCREENING 08/03/2024 COVID-19 VACCINE (1 - 2023-2 5 season) 2025 INFLUENZA VACCINE (#1) 2025 ZOSTER VACCINE (1 of 2) 2049 [...] patient's age to complete this topic [place] [place] [address] [employer]AN [facility] [place] [address] Advance Directives * Full Code (Latest Code Status on File) Date Activated Date Inactivated Comments 05/01/2021 5:03 PM 05/02/2021 11:59 AM * Full Code Date Activated Date Inactivated Comments 05/01/2021 3:28 PM 05/01/2021 5:03 PM
== END 2025-05-24 11:26 | disposition home or self-care (01) ==
LOC: ANHED 11:17
PROVIDERS: Emergency Provider Physician Assistant; PCP Nurse Practitioner Family
DX: S16.1XXA Strain of muscle, fascia and tendon at neck level, initial encounter (principal); O9A.212 Injury, poisoning and certain other consequences of external causes complicating pregnancy, second trimester; Z3A.20 20 weeks gestation of pregnancy; V89.2XXA Person injured in unspecified motor-vehicle accident, traffic, initial encounter; F41.8 Other specified anxiety disorders; Z87.891 Personal history of nicotine dependence
CPT/HCPCS: 99283; A9270

== ENCOUNTER 2025-06-27 11:11 | Outpatient (CLI) | payer OTHER, SELFPAY ==
[2025-06-27] VITALS (16 sets, daily range): BP systolic 91–125; BP diastolic 46–68; PULSE 83–108; BMI 27.3
[2025-06-27 12:20] LABS: Hematocrit 33.0 % (37.0-47.0); Hemoglobin 11.2 g/dL (12.0-15.0); Immature Granulocyte Percent A 0.5 % (0-0.5); Lymphocytes Absolute Auto 1.85 K/mm3 (0.9-3.2); Mean Corpuscular HGB Conc 33.9 g/dl (32-36); Mean Corpuscular Hemoglobin 30.5 pg (26-34); Mean Corpuscular Volume 89.9 fl (80-100); Nucleated Red Blood Cells Absolute Auto 0.000 K/mm3 (0.0-0.012); Nucleated Red Blood Cells Perc 0.0 % (0.0-0.2); Platelet Count Result 225 k/mm3 (150-375); Red Blood Count 3.67 M/mm3 (4.2-5.4); White Blood Count 11.1 K/mm3 (4.5-10.0)
[2025-06-27] MEDS: CYCLOBENZAPRINE HCL 10 MG TABLET PO (12:23)
[2025-06-27 12:41] LABS: Alanine Aminotransferase 13 U/L (6-35); Albumin Level 3.2 g/dL (3.5-5.1); Alkaline Phosphatase 80 U/L (38-126); Anion Gap 4 mmol/L (4-12); Aspartate Amino Transferase 20 U/L (14-36); Bilirubin,Total 0.3 mg/dL (0.2-1.3); Blood Urea Nitrogen 7 mg/dL (7-17); Calcium 8.7 mg/dL (8.4-10.2); Carbon Dioxide 23 mmol/L (22-30); Chloride 105 mmol/L (98-107); Estimated Glomerular Filt Rate > 60; Glucose 99 mg/dL (65-110); Potassium 3.9 mmol/L (3.4-5.0); Sodium 132 mmol/L (137-145); Total Protein 6.2 g/dL (6.3-8.2); Uric Acid 3.5 mg/dL (2.5-7.5)
[2025-06-27 12:52] LABS: Add Urine Microscopic? YES; Appearance Urine Clear (Clear); Glucose Urine UA Negative (Negative); Leukocyte Esterase Ur Trace LEU/UL (Negative); Nitrate Urine Negative (Negative); Non Pathogenic Casts 0-2; Specific Grav Ur 1.013 (1.001-1.035)
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
--- OUTSIDE RECORDS SUMMARY | 2025-06-27 13:09 | XMS_ITS | Clinical Summary ---
Author Organization [facility] Address [address] 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 This disclosure is being madepursuant to the Care Everywhere program and may not contain all information available regarding this patient. 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
--- OUTSIDE RECORDS SUMMARY | 2025-06-27 13:09 | XMS_ITS | Clinical Summary ---
Author Organization [facility] [address] Address [address] [place] [address] Care Team Providers Care Aircraft Designer Name Role Phone Azra Rios NP Primary Care Provider [phone] Allergies Active Allergy Reactions Criticality Noted Date Comments Honey Hives,Itching,Swolle n tongue High 05/01/2021 Latex Rash,Itching Medium 10/08/2023 Metoclopramide Muscle pain,Other (S ee comments) Medium 10/08/2023 TARDIVE DYSKINESIA Medications albuterol HFA (PROVENTIL HFA,VENTOLIN HFA,PROAIR HFA) [...] Active Problems Problem Noted Date Diagnosed Date Placental abnormality in second trimester 2024 Overview (06/21/2025): WE have confirmed the finding of a single placenta escoto today measuring < 5 cm without vascular flow. A placenta escoto is a fluid filled space in the placenta that is filled with maternal blood. It increases the suspicion for placenta accreta spectrum in the setting of previa and history of prior section for which Ms Parson has no other risk factors. We discussed this is often a benign finding and a single and smaller escoto is not likely to cause any risk to the . Multiple and large have been associated with growth restriction. To be conservative can repeat a growth assessment at 28-32 weeks to ensure growth is appropriate. Supervision of high-risk , second trime ster 06/13/2025 Overview (06/13/2025): [] OB consult only, [x] Co-management vs. [] Full MFM Care; [] Red Team [] Blue Team Referring Provider: Chad Andino [phone] [] or Medicare Insurance [x] Dating Criteria: [place] 02/13/25 with CANDACE 10/09/25 [x] Labs: Rh [O+], Ab [negative], Rubella [immune], HIV [non-reactive], HepBSAg [non-reactive], HepBSAb [not done], HepBCAb [not done], RPR [non- reactive], Hep C [non-reactive], Varicella [not done], GC/CT [negative/negative] [x] Aneuploidy Screening: NIPT low risk [] Carrier Screening: [] Hgb electrophoresis: [x] CBC/Hgb: 12.7/38.4/plt 245 [x] Hgb A1c 03/31/25: 4.8 [x] UCx: 03/31/25: negative [x] Pap: 11/18/22: NILM (Care Everywhere) [] LD ASA (if indicated): [] EPDS [ ]; PNBHS referral (if indicated): 2nd Trimester [] Anatomy ultrasound: [] CBC/1hr gtt at 24-28wks: [] Rhogam at 28 wks (if Rh neg): 3rd Trimester [] CBC/HIV/RPR/T&S: [] GBS: [] GC/CT (if indicated): [] testing: Counseling [] MOD: [] instructions reviewed [] Place of delivery: [] Epidural: [] Accepts Blood Products: [] Stop ASA: [] MOC: [] Method of feeding: [] Medical Assistant Supervisor (specifically which provider): [] PP Depression Discussed: [] PP visits scheduled: Vaccines [] Flu Shot (Apr-Jul): [] COVID vaccine: [] Tdap (27-36wks): [] RSV vaccine (32-36wks): [] PP HPV vaccine counseling (<=26 yo): Pericardial cyst 09/13/2024 Overview (06/21/2025): Pericardial cyst and saw CT surgery January 2025. Image revealed stability. Plan is for monitoring with repeat CT in 1 year. Pericardial effusion 09/13/2024 Atypical chest pain 09/13/2024 Generalized anxiety disorder 09/13/2024 Palpitations 09/13/2024 Sciatica 09/13/2024 Thoracic back pain 09/13/2024 Low back pain 09/13/2024 Lower urinary tract symptoms (LUTS) 09/13/2024 Comments Yes Encounters Date Type Department Care Team Description 06/16/2025 9:45 AM LOCAL SUPERINTENDENT Office Visit [facility] Medicine Maternal- Medicine [address] [place] [address] 7th [address] [place] [address] Placental abnormality in second trimester (Primary Dx); Supervision of high-risk , second trimester; Pericardial cyst 06/16/2025 9:15 AM LOCAL SUPERINTENDENT - 06/16/2025 11:59 PM LOCAL SUPERINTENDENT Hospital Encounter [facility] - Ultrasound [address] [place] [address], 7th Floor, [address] [place] [address] Supervision of high-risk , unspecified trimester Discharge Disposition: Discharge to home or self care 06/02/2025 Telephone [facility] Medicine Obstetrics and Gynecology [address] [place] [id number] Miley Buckley 06/02/2025 Telephone [facility] Medicine Obstetrics and Gynecology [address] [place] [id number] Miley Buckley from Last 3 Months Surgical History Surgery Date Site/Laterality Comments CHOLECYSTECTOMY [...] Not Asked; Counseling Given: Not Answered Comments Yes Sex and Gender Information Value Date Recorded Sex Assigned at Not on file Legal Sex Female 10:40 AM LOCAL SUPERINTENDENT Gender Identity Not on file Sexual Orientation Not on file Obstetrics History Para Term AB IAB SAB Ectopic Multiple Livin g Live Births 5 3 3 1 1 3 3 Date Outcome GA Total Labor Labor/2nd/3rd Weight Sex Type Anes PTL Naomy A1 A5 Name Clin 06/27 Term 42w 0d 3.459 kg (7 lb 10 oz) F Vaginal Livin g 08/07 Term 39w 0d 3.033 kg (6 lb 11 oz) M Vaginal Epidur al Livin g 06/05 Term 39w 2d 3.51 kg (7 lb 11.8 oz) F Vaginal Epidur al Livin g 12/25 SAB Current Summary Episode Dates Number of Fetuses Estimated Date of Delivery 06/13/2025 - Present (06/27/2025) Unknown Dating Summary Based On CANDACE GA Diff Ultrasound on 02/13/2025 10/09/2025 GA:6w0d Ultrasound on 03/08/2025 10/06/2025 GA:9w5d Ultrasound on 03/31/2025 10/06/2025 GA:13w0d Ultrasound on 05/24/2025 10/10/2025 GA:20w1d Vitals Pregravid Weight Height TWG (As of 06/27/2025) Pregrav id BMI 160 cm (5' 3) Date GA Fund Present FHR Mvmt BP Weight Edema Alb Glu Ket Dil/ Eff/Sta 06/16/2025 Inpatient data n ot displayed here. See encounter summary. Notes Progress Notes - Office Visi t - 06/16/2025 - GA: 06/16/2025 - Travis Mcgarry MD Maternal Medicine Consult Note Reason for Consult: Placenta [place] Requesting Provider: Chad Andino MD Dear Dr. Andion, We had the pleasure of seeing your patient Joann Parson in our office today. As you know, she is a 24 y.o. at 23 weeks 4 days here today for a consult regarding placenta escoto noted on ultrasound. Her is otherwise uncomplicated. Today she is doing well, she reports no complaints. Denies VB, LOFor abdominal pain. All deliveries have been vaginal and she reports uncomplicated. Past Medical History: Diagnosis Date Atypical chest pain Generalized anxiety disorder Low back pain Lower urinary tract symptoms Palpitations Pericardial cyst Pericardial effusion Sciatica Thoracic back pain Tricuspid regurgitation Past Surgical History: Procedure Laterality Date CHOLECYSTECTOMY Past Gynecologic History: Prior STIs: No History of abnormal pap: No Last pap smear: unknown No LMP recorded. Patient is . Denies history of uterine anomalies or fibroids OB History Para Term AB Living 5 3 3 1 3 SAB IAB Ectopic Multiple Live Births 1 3 # Outcome Date GA Lbr Bruce/2nd Weight Sex Type Anes PTL Lv 5 Current 4 SAB 12/25/24 3 Term 06/05/23 39w2d 3.51 kg (7 lb 11.8 oz) F Vaginal EPI NAOMY 2 Term 08/07/21 39w0d 3.033 kg (6 lb 11 oz) M Vaginal EPI NAOMY 1 Term 06/27/17 42w0d 3.459 kg (7 lb 10 oz) F Vaginal NAOMY Current Outpatient Medications Medication Sig Dispense Refill albuterol HFA (PROVENTIL HFA,VENTOLIN HFA,PROAIR HFA) 90 mcg/actuation inhaler Inhale 2 puffs every 6 (six) hours as needed for wheezing (Patient not taking: Reported on 06/16/2025) escitalopram (LEXAPRO) 10 mg tablet Take 1 tablet (10 mg total) by mouth nightly (Patient not taking: Reported on 06/16/2025) ibuprofen (ADVIL,MOTRIN) 600 mg tablet Take 1 tablet (600 mg total) by mouth every 6 (six) hours as needed for pain (Patient not taking: Reported on 06/16/2025) No current facility-administered medications for this visit. Family History: Family History Problem Relation Age of Onset Cystic kidney disease Mother Hypertension Mother No Known Problems Father Polycystic kidney disease Sister Polycystic kidney disease Brother Other (high blood pressure) Maternal Grandfather No Known Problems Son No Known Problems Daughter No Known Problems Daughter Neural tube defects: No Down syndrome or other chromosomal anomalies: No Hemophilia, sickle cell, bleeding/clotting disorder: No Muscular dystrophy: No Cystic fibrosis: No Intellectual disability or Fragile X: No Jarvis disease: No Other defects or genetic disorders: No Allergies Allergen Reactions Honey Hives, Itching and Swollen tongue Latex Rash and Itching Metoclopramide Muscle pain and Other (See comments) TARDIVE DYSKINESIA Social History Tobacco Use Smoking status: Every Day Types: Cigarettes Smokeless tobacco: Never Substance and Sexual Activity Drug use: Not on file Sexual activity: Not on file Alcohol Use: Not on file Works as [employer] a Lives with Spouse and children Smoke cigarettes, cigars, E-cigs: No Beer, wine, or liquor: No Street drugs/marijuana: None during , MJ in past Review of Systems Review of systems per HPI and otherwise all systems are negative Physical Exam Vitals BP 113/69 Pulse 87 Ht 160 cm (5' 3) Wt 149 lb 3.2 oz (67.7 kg) SpO2 99% BMI 26.43 kg/m General: Healthy, alert, active, cooperative, and in no distress The rest of the exam was deferred due to the consultative nature of this visit. Ultrasound 06/16/2025 IUP at 23 weeks + 4 days The measurements are consistent with gestational age. No structural malformations are identified in the fetus, but due to positioning the spinal imaging was not optimal. The external genitalia are concordant with the cfDNA results. A superficial placental escoto is noted, measuring ~ 2.8 cm in mean diameter. This is generally considered a benign finding with no need for further testing or US exams. Assessment: Ms. Joann Parson is a efren 24 y.o. at 23 weeks 4 days here today for a consult regarding: Recommendations: Problem Placental Abnormality in Second Trimester WE have confirmed the finding of a single placenta escoto today measuring < 5 cm without vascular flow. A placenta escoto is a fluid filled space in the placenta that is filled with maternal blood. It increases the suspicion for placenta accreta spectrum in the setting of previa and history of prior section for which Ms Parson has no other risk factors. We discussed this is often a benign finding and a single and smaller escoto is not likely to cause any risk to the . Multiple and large have been associated with growth restriction. To be conservative can repeat a growth assessment at 28-32 weeks to ensure growth is appropriate. Pericardial Cyst Pericardial cyst and saw CT surgery January 2025. Image revealed stability. Plan is for monitoring with repeat CT in 1 year. We have not scheduled her to return. Thank you for the opportunity to be involved in the care of your patient. Should you have any further questions or concerns, please do not hesitate to call us. Jaci Mcgarry MD Professor Division of Maternal Medicine L SUPERINTENDENT Progress Notes - Abstract - 06/13/2025 - GA: 06/13/2025 - Kaden Duarte ra, RMA Current OB records are under media tab and Care Everywhere. Cardiothoracic Surgery consult note from 01/25/25 is in [facility]. 10/18/24 Cardiology [facility] L SUPERINTENDENT Last Filed Vital Signs Vital Sign Reading Time Taken Comments Blood Pressure 113/69 06/16/2025 11:16 AM LOCAL SUPERINTENDENT Pulse 87 06/16/2025 11:16 AM LOCAL SUPERINTENDENT Temperature 36.8 C (98.2 F) 01/25/2025 12:48 PM CDT Respiratory Rate 18 01/25/2025 12:48 PM CDT Oxygen Saturation 99% 06/16/2025 11:16 AM LOCAL SUPERINTENDENT Inhaled Oxygen Concentration - - Weight 67.7 kg (149 lb 3.2 oz) 06/16/2025 11:16 AM LOCAL SUPERINTENDENT Height 160 cm (5' 3) 06/16/2025 11:16 AM LOCAL SUPERINTENDENT Body Mass Index 26.43 06/16/2025 11:16 AM LOCAL SUPERINTENDENT Plan of Treatment Health Maintenance Due Date Last Done Comments Cervical Cancer Screening 1999 Depression Screening 1999 Regular Well Visit/Exam 18-64 2017 Pneumococcal vaccine <65 (1 of 2 - PCV) 2018 Influenza Vaccine (#1) 2025 05/20/2017 DTaP/Tdap/Td Vaccine (10 - T d or Tdap) 04/10/2033 04/10/2023, 05/28/2021, 03/25/2017, Additional history exists HPV Vaccines Completed 07/05/2015, 12/15/2013 Hepatitis B Screening Completed 03/14/2016 , 10/19/2015, 08/17/2015, Additional history exists Varicella Vaccines Completed 06/29/2017, 0 03/07/2011, 03/17/2005 Hepatitis C Screening Completed 03/31/2025 Procedures Procedure Name Priority Date/Time Associated Diagnosis Comments US OB LIMITED Schedule Routine, Read Routine (OP Routine) 06/16/2025 9:29 AM LOCAL SUPERINTENDENT Supervision of high-risk , unspecified trimester HEMOGLOBIN A1C Routine 03/31/2025 ABO/RH Routine 03/31/2025 CBC WITHOUT DIFFERENTIAL Routine 03/31/2025 ANTIBODY SCREEN Routine 03/31/2025 RUBELLA IGG Routine 03/31/2025 RPR Routine 03/31/2025 HEPATITIS B SURFACE ANTIGEN Routine 03/31/2025 HEPATITIS C ANTIBODY Routine 03/31/2025 HIV 1/2 ANTIBODY PLUS P24 ANTIGEN Routine 03/31/2025 URINE CULTURE Routine 03/31/2025 from Last 3 Months Results * US Ob Limited (06/16/2025 9:29 AM LOCAL SUPERINTENDENT) Fetus# Fetus1 VIEWPOINT Estimated Weight 643 g&grams VIEWPOINT Placenta Details posterior, Previa-no VIEWPOINT Presentation Breech VIEWPOINT Anatomical Region Laterality Modality Abdomen N/A Ultrasound 06/16/2025 9:33 AM LOCAL SUPERINTENDENT Impressions 06/16/2025 11:35 AM LOCAL SUPERINTENDENT The measurements are consistent with gestational age. No structural malformations are identified in the fetus, but due to positioning the spinal imaging was not optimal. The external genitalia are concordant with the cfDNA results. A superficial placental escoto is noted, measuring ~ 2.8 cm in mean diameter. This is generally considered a benign finding with no need for further testing or US exams. IUP at 23 weeks + 4 days Narrative Procedure Note Camille Robertson MD - 06/16/2025 IMPRESSION: The measurements are consistent with gestational age. No structuralmalformations are identified in the fetus, but due to positioningthe spinal imaging was not optimal. The external genitalia are concordantwith the cfDNA results. A superficial placental escoto is noted, measuring~ 2.8 cm in mean diameter. This is generally considered a benign findingwith no need for further testing or US exams. IUP at 23 weeks + 4 days us Chad Andino MD IMG OB US PROCEDURES Final Re sult * HIV 1/2 Antibody plus p24 Antigen Blood (03/31/2025) SCRIBED HIV P24 Nonreactive Nonreactive , Invalid Blood us Chad Andino MD LAB MICROBIOLOGY - GENERAL OR DERABLES Final Result * Hepatitis C antibody Blood (03/31/2025) SCRIBED HCV ab non-reacti ve Blood Result [facility] us Chad Andino MD LAB MICROBIOLOGY - GENERAL OR DERABLES Final Result * ABO/Rh (03/31/2025) SCRIBED ABO/Rh O+ Blood us Chad Andino MD LAB BLOOD BANK TEST ORDERABLE S Final Result * Rubella IgG antibody Blood (03/31/2025) Rubella IgG Scribed Immune Blood us Chad Andino MD LAB MICROBIOLOGY - GENERAL OR DERABLES Final Result * RPR Blood (03/31/2025) SCRIBED RPR Non-Reacti ve Non-Reacti ve Blood us Chad Andino MD LAB MICROBIOLOGY - GENERAL OR DERABLES Final Result * Hepatitis B Surface Antigen Blood (03/31/2025) SCRIBED HBsAg Nonreactive Nonreactive , Invalid Blood us Chad Andino MD LAB MICROBIOLOGY - GENERAL OR DERABLES Final Result * CBC without differential (03/31/2025) Pathologist [facility] Hct 38.4 Hgb 12.7 Plt 245 Blood us Chad Andino MD LAB BLOOD ORDERABLES Final Re sult * Antibody screen (03/31/2025) SCRIBED Indirect Antiglobulin negative Blood us Chad Andino MD LAB BLOOD BANK TEST ORDERABLE S Final Result * Urine culture (03/31/2025) SCRIBED Urine culture negative us Chad Andino MD LAB MICROBIOLOGY - GENERAL OR DERABLES Final Result * Hemoglobin A1c (03/31/2025) SCRIBED Hemoglobin A1c 4.8 4.0 - 5.6 % Blood us Chad Andino MD LAB BLOOD ORDERABLES Final Re sult from Last 3 Months Insurance [facility] Care Teams Aircraft Designer Relationship Specialty Start Date End Date Azra Rios NP [address] [address] PCP - General Family Medicine 09/13/24
--- OUTSIDE RECORDS SUMMARY | 2025-06-27 13:09 | XMS_ITS | Data Portability ---
Author Organization [facility] Address [address] [place] [address] Assessment Encounter Date Assessment Date Assessment LastModified by Organization Details LastModified Time 04/28/2025 04/28/2025 Patient is _16 __weeks . Discussed plan. [email or web address] Not available 04/28/2025 10:40:16 05/24/2025 05/24/2025 Patient is 28___weeks . Discussed plan. [email or web address] Not available 05/24/2025 15:12:21 06/21/2025 06/21/2025 Patient is _24__weeks . Discussed plan. [email or web address] Not available 06/21/2025 18:16:15 Plan of Treatment Reminders Order Date Submit [...] None recorde d. Imaging US, obstetr ic, limited 2024 025 [email or web address] [address], [address], [place], [address], 06/10/2025 21:17:08 US, obstetr ic, 2nd or 3rd trimest er 2024 025 [email or web address] [address], [address], [place], [address], 05/24/2025 18:00:24 Medication Orders None recorde d. Patient TargetsNo targets recorded. Patient InstructionsNo instructions recorded. Reason for Referral None Reported. Results Created Date Observation Date Name Description Value Unit Range Abnormal Flag Note LastModifiedBy Organization Detail LastModifiedTime 04/05/2004/05/2025 [UNIT Y] ANEUP LOIDY NIPT fraction 20.4% normal Not Available [facility] [address], [place], [address], 04/05/2025 23:57:08 04/05/20 25 04/05/2025 [UNIT Y] ANEUP LOIDY NIPT 22Q11.2 microdeletio n LOW RISK <1 in 10,000 normal Not Available [facility] [address], [place], [address], 04/05/2025 23:57:08 04/05/20 25 04/05/2025 [UNIT Y] ANEUP LOIDY NIPT sex chromosome aneuploidy NOT DETECT ED normal Not Available [facility] [address], [place], [address], 04/05/2025 23:57:08 04/05/20 25 04/05/2025 [UNIT Y] ANEUP LOIDY NIPT monosomy X LOW RISK <1 in 10,000 normal Not Available [facility] [address], [place], [address], 04/05/2025 23:57:08 04/05/20 25 04/05/2025 [UNIT Y] ANEUP LOIDY NIPT trisomy 13 LOW RISK <1 in 10,000 normal Not Available [facility] [address], [place], [address], 04/05/2025 23:57:08 04/05/20 25 04/05/2025 [UNIT Y] ANEUP LOIDY NIPT trisomy 18 LOW RISK <1 in 10,000 normal Not Available [facility] [address], [place], [address], 04/05/2025 23:57:08 04/05/20 25 04/05/2025 [UNIT Y] ANEUP LOIDY NIPT trisomy 21 LOW RISK <1 in 10,000 normal Not Available [facility] [address], [place], [address], 04/05/2025 23:57:08 04/05/20 25 04/05/2025 [UNIT Y] ANEUP LOIDY NIPT sex FEMALE normal Not Available [facility] [address], [place], [address], 04/05/2025 23:57:08 04/05/20 25 04/05/2025 [UNIT Y] ANEUP LOIDY NIPT gestation SINGLE TON normal Not Available [facility] [address], [place], [address], 04/05/2025 23:57:08 04/05/20 25 04/05/2025 [UNIT Y] ANEUP LOIDY NIPT for detailed report, see pdf See PDF normal Not Available [facility] [address], [place], [address], 04/05/2025 23:57:08 03/31/20 25 03/31/2025 CBC W/DIF F WBC 9.8 10'3/ uL 3.5-10 .5 Not Available [facility] (Lab) [address], [place], [address], 04/01/2025 13:08:25 03/31/20 25 03/31/2025 CBC W/DIF F RBC 4.23 10'6/ uL (based on docume nted legal sex) 3.80-5 .20 Not Available [facility] (Lab) [address], [place], [address], 04/01/2025 13:08:25 03/31/20 25 03/31/2025 CBC W/DIF F HGB 12.7 g/dL (based on docume nted legal sex) 11.6-1 5.4 Not Available [facility] (Lab) [address], [place], [address], 04/01/2025 13:08:25 03/31/20 25 03/31/2025 CBC W/DIF F HCT 38.4 % (based on docume nted legal sex) 34.0-4 5.0 Not Available [facility] (Lab) [address], [place], [address], 04/01/2025 13:08:25 03/31/20 25 03/31/2025 CBC W/DIF F MCV 90.8 fL 80.0-9 9.0 Not Available [facility] (Lab) [address], [place], [address], 04/01/2025 13:08:25 03/31/20 25 03/31/2025 CBC W/DIF F MCH 30.0 pg 27.0-3 4.0 Not Available [facility] (Lab) [address], [place], [address], 04/01/2025 13:08:25 03/31/20 25 03/31/2025 CBC W/DIF F MCHC 33.1 g/dL 32.0-3 5.5 Not Available [facility] (Lab) [address], [place], [address], 04/01/2025 13:08:25 03/31/20 25 03/31/2025 CBC W/DIF F RDW 13.1 % 11.0-1 5.0 Not Available [facility] (Lab) [address], [place], [address], 04/01/2025 13:08:25 03/31/20 25 03/31/2025 CBC W/DIF F plt 245 10'3/ uL 150-40 0 Not Available [facility] (Lab) [address], [place], [address], 04/01/2025 13:08:25 03/31/20 25 03/31/2025 CBC W/DIF F MPV 11.4 fL 8.8-12 .1 Not Available [facility] (Lab) [address] [facility], [place], [address], 04/01/2025 13:08:25 03/31/20 25 03/31/2025 CBC W/DIF F NRBC's 0.0 % 0.0 Not Available [facility] (Lab) [address] [facility], [place], [address], 04/01/2025 13:08:25 03/31/20 25 03/31/2025 CBC W/DIF F absolute NRBCs 0.0 10'3/ uL no refere nce range establ ished Not Available [facility] (Lab) [address] [facility], [place], [address], 04/01/2025 13:08:25 03/31/20 25 03/31/2025 CBC W/DIF F neutrophils 72.6 % 34.0-7 3.0 Not Available [facility] (Lab) [address] [facility], [place], [address], 04/01/2025 13:08:25 03/31/20 25 03/31/2025 CBC W/DIF F lymphocytes 19.8 % 15.0-5 0.0 Not Available [facility] (Lab) [address] [facility], [place], [address], 04/01/2025 13:08:25 03/31/20 25 03/31/2025 CBC W/DIF F monocytes 5.9 % 1.0-15 .0 Not Available [facility] (Lab) [address] [facility], [place], [address], 04/01/2025 13:08:25 03/31/20 25 03/31/2025 CBC W/DIF F eosinophils 1.2 % 0.0-8. 0 Not Available [facility] (Lab) [address] [facility], [place], [address], 04/01/2025 13:08:25 03/31/20 25 03/31/2025 CBC W/DIF F basophils 0.2 % 0.0-2. 0 Not Available [facility] (Lab) [address] [facility], [place], [address], 04/01/2025 13:08:25 03/31/20 25 03/31/2025 CBC W/DIF [...] separ ately if prese nt. Not Available [facility] (Lab) [address] [facility], [place], [address], 04/01/2025 13:08:25 03/31/20 25 03/31/2025 CBC W/DIF F absolute neutrophils 7.1 10'3/ uL 1.5-8. 0 Not Available [facility] (Lab) [address] [facility], [place], [address], 04/01/2025 13:08:25 03/31/20 25 03/31/2025 CBC W/DIF F absolute lymphocytes 1.9 10'3/ uL 1.0-4. 0 Not Available [facility] (Lab) [address] [facility], [place], [address], 04/01/2025 13:08:25 03/31/20 25 03/31/2025 CBC W/DIF F absolute monocytes 0.6 10'3/ uL 0.2-1. 0 Not Available [facility] (Lab) [address] [facility], [place], [address], 04/01/2025 13:08:25 03/31/20 25 03/31/2025 CBC W/DIF F absolute eosinophils 0.1 10'3/ uL 0.0-0. 6 Not Available [facility] (Lab) [address] [place], [address], 04/01/2025 13:08:25 03/31/2003/31/2025 CBC W/DIF F absolute basophils 0.0 10'3/ uL 0.0-0. 3 Not Available [facility] (Lab) [address], [place], [address], 04/01/2025 13:08:25 03/31/2003/31/2025 CBC W/DIF F absolute immature granulocytes 0.0 [...] larose book. nm.or g/gen derx Not Available [facility] (Lab) [address], [place], [address], 04/01/2025 13:08:25 03/31/2003/31/2025 HIV 1/2 ANTIG EN/AN TIBOD Y, REFLE X CONFI RMATI ON HIV antigen/anti body Nonrea ctive nonrea ctive HIV-1 antig en and HIV-1 /HIV- 2 antib odies were not detec galileo. No labor atory evide nce of HIV infec tion. Not Available [facility] (Lab) [address], [place], [address], 04/01/2025 13:08:25 03/31/2003/31/2025 HEPAT ITIS B SURFA CE ANTIG EN hepatitis B surface antigen Non-re active non-re active This assay was perfo rmed using [employer] ratio n reage nts and test kits. Value s obtai holden with other assay metho ds or kits canno t be used inter wright eably . Not Available [facility] (Lab) [address], [place], [address], 04/01/2025 13:08:25 03/31/20 25 03/31/2025 HEPAT ITIS C ANTIB JEANE SCREE N, REFLE X TO CONFI RMATI ON hepatitis C antibody Non-re active non-re active Antib odies to HCV Not Detec galileo, does not exclu de the possi bilit y of expos ure to HCV. Not Available [facility] (Lab) [address], [place], [address], 04/01/2025 13:08:26 03/31/20 25 03/31/2025 RUBEL LA IGG ANTIB JEANE, QUANT rubella antibodies, IgG Reacti ve reacti ve Not Available [facility] (Lab) [address], [place], [address], 04/01/2025 13:08:26 03/31/20 25 03/31/2025 RUBEL LA IGG ANTIB JEANE, QUANT rubella antibodies, IgG quant 20.2 IU/mL >=10 Non-r eacti ve (Non- Immun e) <10 IU/mL React rhett (Immu ne) > or = 10 IU/mL Not Available [facility] (Lab) [address], [place], [address], 04/01/2025 13:08:26 03/31/20 25 03/31/2025 TYPE/ RH/SC REEN ABO/Rh type O POS Not Available [facility] (Lab) [address], [place], [address], 04/01/2025 13:08:27 03/31/20 25 03/31/2025 TYPE/ RH/SC REEN antibody screen NEG Not Available [facility] (Lab) [address], [place], [address], 04/01/2025 13:08:27 03/31/20 25 03/31/2025 TYPE/ RH/SC REEN exp date 2024 23:59 Not Available [facility] (Lab) [address] [facility], [place], [address], 04/01/2025 13:08:27 03/31/20 25 03/31/2025 HEMOG LOBIN A1C hemoglobin A1C 4.8 % 4.0-5. 6 The Ameri can Diabe fawad Assoc iatio n recom mends that a prima ry goal of thera py shoul d be a HBA1C of < 7% and that physi cians shoul d reeva luate the treat ment regim en in patie nts with HBA1C value s consi stent ly > 8%. <5.7% Марина l 5.7 - 6.4% Incre ased risk for diabe fawad >=6.5 % Diagn ostic of diabe fawad <7.0% Goal of thera py >8.0% Actio n sugge sted Not Available [facility] (Lab) [address] [facility], [place], [address], 04/01/2025 13:08:27 03/31/20 25 03/31/2025 LEAD, BLOOD (ADUL T/PED IATRI C) lead, whole blood <1.0 mcg/d L <3.5 See Note 1 Constantino sis was perfo rmed by Yariel Cordoba ed Plasm a Mass Spect romet ry (ICPM S) Note 1 This test was devel oped and its constantino tical perfo rmanc e jari cteri stics have been deter mined by [facility]. It has not been clear ed or appro andrea by the FDA. This assay has been valid ated pursu ant to the CLIA regul ation s and is used for clini saeed purpo ses. Perfo rming Organ izati on Infor matio n: Site ID: CB Name: [facility]Emil Aguilar Addre ss: [address] [place] [address] Direc tor: Alden Mccollum s Not Available [facility] (Lab) [address] [facility], [place], [address], 04/01/2025 13:08:27 03/31/20 25 03/31/2025 RPR SCREE N, REFLE X TITER /CONF IRMAT ION RPR qualitative Nonrea ctive nonrea ctive Not Available [facility] (Lab) [address] [facility], [place], [address], 04/01/2025 13:08:28 03/31/20 25 03/31/2025 CULTU RE: URINE result report SEE RESULT S BELOW Test: Cultu re: Urine Speci men Sourc e: Urine - Clean Catch Speci men Type: Urine Speci men Date: 2024 1146 Resul t Date: 2024 Resul t Statu s: Final resul t Abnor mal: No Resul ting Lab: [facility] [address] [facility] [address] Tel: CULTU RE ----- ----- ----- --- No growt h in 1 day (dete ction level of 10,00 0 colon ies / ml.) Not Available [facility] (Lab) [address] [facility], [place], [address], 04/01/2025 22:39:48 03/31/20 25 03/31/2025 drug scree n, urine Amphetamines : negati ve Not Available [address], [place], [address], 03/31/2025 11:22:20 03/31/20 25 03/31/2025 drug scree n, urine Cannabinoids : negati ve Not Available [address], [place], [address], 03/31/2025 11:22:20 03/31/20 25 03/31/2025 drug scree n, urine Cocaine: negati ve Not Available [address], [place], [address], 03/31/2025 11:22:20 03/31/20 25 03/31/2025 drug scree n, urine Opiates: negati ve Not Available [address], [place], [address], 03/31/2025 11:22:20 03/31/20 25 03/31/2025 drug scree n, urine Phenocyclidi ne: negati ve Not Available [address], [place], [address], 03/31/2025 11:22:20 03/31/20 25 03/31/2025 drug scree n, urine Barbiturates : negati ve Not Available [address], [place], [address], 03/31/2025 11:22:20 03/31/20 25 03/31/2025 drug scree n, urine Benzodiazepi vianca: negati ve Not Available [address], [place], [address], 03/31/2025 11:22:20 03/31/20 25 03/31/2025 drug scree n, urine Ethanol: negati ve Not Available [address], [place], [address], 03/31/2025 11:22:20 03/31/20 25 03/31/2025 drug scree n, urine Hallucinogen s: negati ve Not Available [address], [place], [address], 03/31/2025 11:22:20 03/31/20 25 03/31/2025 drug scree n, urine Inhalants: negati ve Not Available [address], [place], [address], 03/31/2025 11:22:20 03/31/20 25 03/31/2025 drug scree n, urine Anabolic Steroids: negati ve Not Available [address], [place], [address], 03/31/2025 11:22:20 03/31/20 25 03/31/2025 US, obste tric, 1st trime ster No observ ation record ed. [email or web address] [address], [place], [address], 04/04/2025 13:21:29 03/31/20 25 03/31/2025 US, obste tric, nucha l trans lucen cy No observ ation record ed. [email or web address] [address], [place], [address], 03/31/2025 13:46:11 05/24/20 25 05/24/2025 US, obste tric, 2nd or 3rd trime ster No observ ation record ed. [address], [place], [address], 06/01/2025 16:11:10 05/24/20 25 05/24/2025 US, obste tric, follo w-up No observ ation record ed. [facility] [address], [place], [address], 05/30/2025 09:30:25 05/24/20 25 05/25/2025 US, obste tric, 2nd or 3rd trime ster No observ ation record ed. [email or web address] [address], [place], [address], 05/25/2025 11:09:27 06/08/20 25 06/08/2025 US, obste tric, limit ed No observ ation record ed. [email or web address] [address], [place], [address], 06/08/2025 18:20:00 06/08/20 25 06/08/2025 US, obste tric, limit ed No observ ation record ed. [email or web address] [address], [place], [address], 06/08/2025 17:22:11 06/16/20 25 06/16/2025 US, obste tric, limit ed No observ ation record ed. [email or web address] [facility] (Psychiatry Department) [address], [place], [address], 06/22/2025 14:08:35 06/16/2006/16/2025 US, obste tric, follo w-up No observ ation record ed. [email or web address] [facility] [address], [place], [address], 06/23/2025 15:02:25 Result Notes None recorded. Problems Name Problem SNOMED Code Status Onset Date Resolution Date Notes Provider Name and Address Organization Details Recorded Time Venous escoto 619421411 Completed resolved Ana Lilia arthurl [facility], [facility] 2 12:55:17 Marginal insertio n of umbilica l cord 61643516 Completed serial growth Ana Lilia Bailey l [facility] 2 12:55:17 Group B Streptoc occus carrier 40222281783 03 Completed Ana Lilia Bailey ehl [facility] 2 12:55:17 Anxiety in pregnanc y 11769430308 109 Active lexapro, weaned off 20w- wants to restart in hospital after delivery Noni laird, [facility] 3 12:45:59 Anxiety in pregnanc y 28490829906 109 Completed lexapro, weaned off 20w- wants to restart in hospital after delivery Noni laird [facility] 3 12:45:59 Placenta circumva llata 0638340 Completed growth Noni laird [facility] 3 12:45:59 Pregnanc y 95200085 Completed 202008/26/2021 Karley laird [facility] 5 14:33:26 Pregnanc y 29005962 Completed 202206/08/2023 Karley laird, [facility] 5 14:33:26 Pregnanc y 00043604 Active 2024 Karley laird, [facility] 5 14:33:26 Placenta circumva llata 6357900 Active 2024 32wk growth us Jayla Ruano [facility], [facility] 5 10:06:34 Placenta circumva llata 3768510 Active 2024 32wk growth us Jayla Ruano [facility], [facility] 5 10:06:34 Problem Notes None recorded. Procedures Surgical History Date Name Laterality Status Provider Name and Address Organization Details Recorded Time 11/19/19 23 Date of Last Pap Smear completed Savanna Wilson [facility] 04/02/2023 18:08:39 09/28/19 18 Cholecystectomy completed Yessica Faustin [facility] 06/26/2021 16:42:10 Laparoscopy completed Savanna Wilson [facility] 05/13/2023 12:27:26 Cholecystectomy completed Karley Ann-Marie [facility] 04/28/2025 10:20:57 Imaging Results None recorded. Procedure Notes None recorded. Medical Equipment None Reported. Allergies Allergen ID Allergen Name Allergen Category Reaction Reaction Severity Criticality Documentation Date Start Date Code Code System Note Provider Name and Address Organization Details Recorded Time 64673 Latex (substanc e) environme nt,medica tion rash moderate Not available 06/26/2021 35691 8007 SNOMED Yessica Faustin [facility] 14:06:35 27499 honey preparati on food,medi cation hives Not available Not available 06/26/2021 65821 9 RxNorm Yessica Faustin [facility] 14:06:53 64913 Reglan medicatio n Not available Not available Not available 11/15/2024 9230 RxNorm Lakshmi Reich [facility] 16:42:34 91217 latex environme nt,medica tion itching Not available Not available 06/21/20252020 98021 91 RxNorm Not Available ariana - [employer] - prod 12:15:41 91449 metoclopr amide Not available myalgias (muscle pain) other Not available Not available high 06/21/20252023 6915 RxNorm TARDI VE DYSKI NESIA Not Available [employer] - prod 12:15:44 Medications Name [...] and Address Organization Details Last Updated DateTime 04/28/2025 160.02 cm 25.3 kg/m2 01417.71 g 126/68 mm[Hg] Karley Jacobsen [facility] 04/28/2025 10:20:50 Date Recorded Body height Body mass index (BMI) Body weight Systolic And Diastolic Provider Name and Address Organization Details Last Updated DateTime 05/24/2025 160.02 cm 25.9 kg/m2 27533.49 g 115/76 mm[Hg] Betzaida [facility] 05/24/2025 14:06:32 Date Recorded Body weight Systolic And Diastolic Provider Name and Address Organization Details Last Updated DateTime 06/21/2025 46676.67451 g 123/77 mm[Hg] Betzaida [facility] 06/21/2025 18:15:03 Social History Question Answer Notes LastModified by Organizat ion Details LastModified Time Tobacco Smoking Status Current Every Day Smoker Zoila Garcia [facility] 07/08/2023 12:55:11 Do You Have An Advance Directive? No Information not available 06/26/2021 If You Are , What Was Your Level Of Alcohol Consumption Prior To ? Occasional [email or web address] Information not available 07/08/2023 Are You Blind [...] Or The Highest Degree You Have Received? [id number] Information not available 06/26/2021 Are There Any Guns Present In Your Home? No Information not available 06/26/2021 Do You Use Protection During Sex? No Information not available 06/26/2021 Do You Use Your Seat Belt Or Car Seat Routinely? Yes Information not available 06/26/2021 Are You Sexually Active? Yes [email or web address] Information not available 03/08/2025 Do You Have Smoke And Carbon Monoxide Detectors In Your Home? Yes Information not available 06/26/2021 At What Age Did You Start Smoking Tobacco? 14 Information not available 06/26/2021 How Much Tobacco Do You Smoke? No [email or web address] Information not available 05/22/2023 Do You Use Sunscreen Routinely? Yes Information not available 06/26/2021 How Many Years Have You Smoked Tobacco? 6 Information not available 06/26/2021 Have You Used IV Drugs? No Information not available 06/26/2021 Do You Have Difficulty Walking Or Climbing Stairs? No [email or web address] Information not available 07/08/2023 Sex: Unknown Functional [...] difficulty dressing, bathing, grooming, or toileting? No [email or web address] Information not available 07/08/2023 What is your exercise level? Occasional Information not available 06/26/2021 Mental Status Question Answer Note LastModified by Organization D etails LastModified Time Do you feel stressed (tense, restless, nervous, or anxious, or unable to sleep at night)? [id number] Information not available 06/26/2021 Family History Relationship Description Onset Age of this Age Resolved Age Notes LastModified by Organization Details LastModified Time Father No current problems or disability [email or web address] Not available 11/15 16:44:39 Mother No current problems or disability Not available 11/15 16:44:39 Medical History Condition Response Other N Blood Transfusion N Dermatologic Disorders N Gestational Diabetes N Anxiety Disorder Y Autoimmune disease N Arthritis N Polyps N Infertility N Acid Reflux (GERD) N Cancer N Varicosities N Stroke N Neurologic/Epilepsy N Fibromyalgia N Headaches N Kidney Disease N Heart Problems N Kidney or Bladder Problems N Eating Disorder N Art (IVF or FET) N Hepatitis/Liver Disease N No Past Medical History N Urinary Tract Infection N Asthma N Trauma/Violence N Thrombophilias N Allergies (Food, seasonal, environmental ) N Breast Cancer N Drug/Latex Allergies/Reactions Y Lung Disease N Defects or Inherited Disease N Breast Problem N Hematologic disorders N Anesthesia Complications N History of STI N Deep Vein Thrombosis N Polycystic ovary syndrome N History of abnormal pap N Endometriosis N High Cholesterol N Thyroid Problems N GI Problems N Anemia N Psychiatric Illness N Ovarian Cancer N Diabetes N Pulmonary (TB, Asthma) N Eczema N Abuse/Domestic Violence N Depression/ depression Y Heart Disease N Pre-Eclampsia N Hypertension N Osteoporosis N Gynecological History Statement/Question Response Flow Moderate [...] ICD10 Code Diagnosis IMO Codes Diagnosis Note [id number] MD Mahogany Finch [address],[place] [address] 06/26/2021 16:02:36 07/01/2021 13:15:49 Routine care 532649865 Z34.83 [id number] MD Mahogany Finch [address],[place] [address] 06/26/2021 17:12:40 06/26/2021 18:07:04 Uterine size for dates discrepancy 755672881 O26.843 Z3A.33 [id number] MD Traci [place] [address],[place] [address] 07/09/2021 17:28:49 07/10/2021 10:47:20 Routine care 169960520 Z34.83 Marginal i nsertion of umbilical cord 04624951 O43.129 [id number] Karley Monteiro MD [facility] [address],[place] [address] 07/23/2021 17:00:42 07/23/2021 17:31:49 condition affecting obstetrical care of mother 307751967 O36.5930 Z3A.36 [id number] MD Mahogany Ross [address],[place] [address] 07/23/2021 17:01:11 07/24/2021 11:45:54 Routine care 879382268 Z34.83 [id number] MD Mahogany Ross [address] [place] [address] 07/29/2021 17:12:20 07/30/2021 08:42:00 Group B Streptococcus carrier 8955643323 103 Z22.330 Routine an tenatal care 009558866 Z34.83 [id number] MD Traci [place] [address],[place] [address] 09/09/2021 17:40:03 09/16/2021 16:12:29 care 419775044 Z39.2 [id number] Mariana Motley [facility] [address],[place] [address] 10/02/2021 17:33:57 10/03/2021 15:02:09 Mastitis associated with 177859406 O91.23 [id number] Karley Monteiro MD [facility] [address],[place] [address] 12/23/2021 17:05:22 12/24/2021 10:22:18 Gynecologic examination 35363482 Z01.419 [id number] Karley Monteiro MD [facility] [address],[place] [address] 12/02/2022 15:33:27 12/03/2022 10:24:19 Routine care 366326964 Z34.83 Anxiety in 138 6095036 9109 F41.9 [id number] Karley Monteiro MD [facility] [address],[place] [address] 11/18/2022 16:36:38 11/18/2022 17:28:57 [id number] Karley Monteiro MD [facility] [address],[place] [address] 11/18/2022 16:37:08 11/19/2022 12:49:34 test positive 657811158 Z32.01 Venereal d isease screening 673123809 Z11.3 Screening for malignant neoplasm of cervix 588568855 Z12.4 Anxiety in 066 8600122 9109 F41.9 [id number] Karley Monteiro MD [facility] [address],[place] [address] 12/02/2022 15:33:11 12/02/2022 16:31:21 screening 023165434 Z36.82 [id number] Karley Monteiro MD [facility] [address],[place] [address] 12/30/2022 16:40:11 12/31/2022 15:44:11 Routine care 831109296 Z34.83 [id number] MD Mahogany Ross [address],[place] [address] 02/02/2023 11:05:53 02/02/2023 12:50:50 screening 527560661 Z36.3 [id number] MD Mahogany Ross [address],[place] [address] 02/02/2023 11:06:38 02/02/2023 14:17:49 Routine care 494291083 Z34.83 [id number] MD Mahogany Ross [address],[place] [address] 03/03/2023 09:38:36 03/03/2023 11:11:58 Placenta circumvallata 1422211 O43.112 Z3A.25 [id number] MD Mahogany Ross [address],[place] [address] 03/03/2023 09:39:09 03/03/2023 13:38:59 Routine care 161609398 Z34.83 Placenta circumvallata 2234092 O43.112 Z3A.25 [id number] MD Mahogany Ross [address],[place] [address] 1 03/16/2023 16:16:21 03/17/2023 16:19:07 Routine care 022987873 Z34.83 [id number] MD Mahogany Ross [address],[place] [address] 03/30/2023 16:49:13 03/30/2023 17:21:20 Placenta circumvallata 4913793 O43.112 Z3A.29 [id number] MD Mahogany Ross [address],[place] [address] 03/30/2023 16:49:35 04/26/2023 22:36:43 [id number] MD Mahogany Ross [address],[place] [address] 04/14/2023 17:12:47 04/14/2023 18:02:21 Routine care 800911856 Z34.83 Anxiety in 827 5533679 9109 F41.9 Placenta circumvallata 0699802 O43.112 Z3A.29 [id number] Karley Monteiro MD [facility] [address],[place] [address] 04/27/2023 11:22:03 04/27/2023 12:08:05 Placenta circumvallata 4311704 O43.113 Z3A.33 [id number] Karley Monteiro MD [facility] [address],[place] [address] 04/27/2023 11:22:32 04/27/2023 12:48:25 Routine care 070568395 Z34.83 Placenta circumvallata 6802116 O43.113 Z3A.33 [id number] [facility] [address],[place] [address] 05/13/2023 12:12:15 05/13/2023 12:45:46 Routine care 126036185 Z34.93 [id number] [facility] [address],[place] [address] 05/22/2023 12:11:05 05/22/2023 12:42:16 Routine care 385667988 Z34.93 [id number] [facility] [address],[place] [address] 05/27/2023 12:39:30 05/27/2023 13:42:44 Routine care 094449214 Z34.93 [id number] [facility] [address],[place] [address] 06/03/2023 12:05:33 06/03/2023 13:34:20 Routine care 649082191 Z34.93 [id number] [facility] [address],[place] [address] 07/08/2023 12:55:00

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
--- OUTSIDE RECORDS SUMMARY | 2025-06-27 13:09 | XMS_ITS | Continuity of Care Document ---
Author Organization [facility] Address [address] [place] [address] Assessment Encounter Date Assessment Date Assessment LastModified by Organization Details LastModified Time 04/28/2025 04/28/2025 Patient is _16 __weeks . Discussed plan. Not available 04/28/2025 10:40:16 Plan of Treatment Reminders Order Date Submit [...] [facility] [address], [place], [address], 04/05/2025 23:57:08 04/05/20 25 04/05/2025 [UNIT Y] ANEUP LOIDY NIPT 22Q11.2 microdeletio n LOW RISK <1 in 10,000 normal Not Available [facility] [address], [place], [address], 04/05/2025 23:57:08 04/05/20 25 04/05/2025 [UNIT Y] ANEUP LOIDY NIPT sex chromosome aneuploidy NOT DETECT ED normal Not Available [facility] [address], [place], [address], 04/05/2025 23:57:08 04/05/20 25 04/05/2025 [UNIT Y] ANEUP LOIDY NIPT monosomy X LOW RISK <1 in 10,000 normal Not Available [facility] [address], [place], [address], 04/05/2025 23:57:08 04/05/20 25 04/05/2025 [UNIT Y] ANEUP LOIDY NIPT trisomy 13 LOW RISK <1 in 10,000 normal Not Available [facility] [address], [place], [address], 04/05/2025 23:57:08 04/05/20 25 04/05/2025 [UNIT Y] ANEUP LOIDY NIPT trisomy 18 LOW RISK <1 in 10,000 normal Not Available [facility] [address], [place], [address], 04/05/2025 23:57:08 04/05/20 25 04/05/2025 [UNIT Y] ANEUP LOIDY NIPT trisomy 21 LOW RISK <1 in 10,000 normal Not Available [facility] [address], [place], [address], 04/05/2025 23:57:08 04/05/20 25 04/05/2025 [UNIT Y] ANEUP LOIDY NIPT sex FEMALE normal Not Available [facility] [address], [place], [address], 04/05/2025 23:57:08 04/05/20 25 04/05/2025 [UNIT Y] ANEUP LOIDY NIPT gestation SINGLE TON normal Not Available [facility] [address], [place], [address], 04/05/2025 23:57:08 04/05/2004/05/2025 [UNIT Y] ANEUP LOIDY NIPT for detailed report, see pdf See PDF normal Not Available [facility] [address], [place], [address], 04/05/2025 23:57:08 03/31/20 25 03/31/2025 CBC W/DIF F WBC 9.8 10'3/ uL 3.5-10 .5 Not Available [facility] (Lab) [address], [place], [address], 04/01/2025 13:08:25 03/31/20 25 03/31/2025 CBC W/DIF F RBC 4.23 10'6/ uL (based on docume nted legal sex) 3.80-5 .20 Not Available [facility] (Lab) [address], [place], [address], 04/01/2025 13:08:25 03/31/20 25 03/31/2025 CBC W/DIF F HGB 12.7 g/dL (based on docume nted legal sex) 11.6-1 5.4 Not Available [facility] (Lab) [address] [place], [address], 04/01/2025 13:08:25 03/31/20 25 03/31/2025 CBC W/DIF F HCT 38.4 % (based on docume nted legal sex) 34.0-4 5.0 Not Available [facility] (Lab) [address], [place], [address], 04/01/2025 13:08:25 03/31/20 25 03/31/2025 CBC W/DIF F MCV 90.8 fL 80.0-9 9.0 Not Available [facility] (Lab) [address] [place], [address], 04/01/2025 13:08:25 03/31/20 25 03/31/2025 CBC W/DIF F MCH 30.0 pg 27.0-3 4.0 Not Available [facility] (Lab) [address] [facility], [place], [address], 04/01/2025 13:08:25 03/31/20 25 03/31/2025 CBC W/DIF F MCHC 33.1 g/dL 32.0-3 5.5 Not Available [facility] (Lab) [address], [place], [address], 04/01/2025 13:08:25 03/31/20 25 03/31/2025 CBC W/DIF F RDW 13.1 % 11.0-1 5.0 Not Available [facility] (Lab) [address], [place], [address], 04/01/2025 13:08:25 03/31/20 25 03/31/2025 CBC W/DIF F plt 245 10'3/ uL 150-40 0 Not Available [facility] (Lab) [address] [facility], [place], [address], 04/01/2025 13:08:25 03/31/20 25 03/31/2025 CBC W/DIF F MPV 11.4 fL 8.8-12 .1 Not Available [facility] (Lab) [address] [facility], [place], [address], 04/01/2025 13:08:25 03/31/20 25 03/31/2025 CBC W/DIF F NRBC's 0.0 % 0.0 Not Available [facility] (Lab) [address], [place], [address], 04/01/2025 13:08:25 03/31/20 25 03/31/2025 CBC W/DIF F absolute NRBCs 0.0 10'3/ uL no refere nce range establ ished Not Available [facility] (Lab) [address] [facility], [place], [address], 04/01/2025 13:08:25 03/31/20 25 03/31/2025 CBC W/DIF F neutrophils 72.6 % 34.0-7 3.0 Not Available [facility] (Lab) [address] [facility], [place], [address], 04/01/2025 13:08:25 03/31/20 25 03/31/2025 CBC W/DIF F lymphocytes 19.8 % 15.0-5 0.0 Not Available [facility] (Lab) [address] [facility], [place], [address], 04/01/2025 13:08:25 03/31/20 25 03/31/2025 CBC W/DIF F monocytes 5.9 % 1.0-15 .0 Not Available [facility] (Lab) [address] [facility], [place], [address], 04/01/2025 13:08:25 03/31/20 25 03/31/2025 CBC W/DIF F eosinophils 1.2 % 0.0-8. 0 Not Available [facility] (Lab) [address] [facility], [place], [address], 04/01/2025 13:08:25 03/31/20 25 03/31/2025 CBC W/DIF F basophils 0.2 % 0.0-2. 0 Not Available [facility] (Lab) [address] [facility], [place], [address], 04/01/2025 13:08:25 03/31/20 25 03/31/2025 CBC W/DIF [...] separ ately if prese nt. Not Available [facility] (Lab) [address] [facility], [place], [address], 04/01/2025 13:08:25 03/31/20 25 03/31/2025 CBC W/DIF F absolute neutrophils 7.1 10'3/ uL 1.5-8. 0 Not Available [facility] (Lab) [address] [facility], [place], [address], 04/01/2025 13:08:25 03/31/20 25 03/31/2025 CBC W/DIF F absolute lymphocytes 1.9 10'3/ uL 1.0-4. 0 Not Available [facility] (Lab) [address] [facility], [place], [address], 04/01/2025 13:08:25 03/31/20 25 03/31/2025 CBC W/DIF F absolute monocytes 0.6 10'3/ uL 0.2-1. 0 Not Available [facility] (Lab) [address] [facility], [place], [address], 04/01/2025 13:08:25 03/31/20 25 03/31/2025 CBC W/DIF F absolute eosinophils 0.1 10'3/ uL 0.0-0. 6 Not Available [facility] (Lab) [address] [facility], [place], [address], 04/01/2025 13:08:25 03/31/20 25 03/31/2025 CBC W/DIF F absolute basophils 0.0 10'3/ uL 0.0-0. 3 Not Available [facility] (Lab) [address] [facility], [place], [address], 04/01/2025 13:08:25 03/31/20 25 03/31/2025 CBC W/DIF [...] larose book. nm.or g/gen derx Not Available [facility] (Lab) [address] [facility], [place], [address], 04/01/2025 13:08:25 03/31/2003/31/2025 HIV 1/2 ANTIG EN/AN TIBOD Y, REFLE X CONFI RMATI ON HIV antigen/anti body Nonrea ctive nonrea ctive HIV-1 antig en and HIV-1 /HIV- 2 antib odies were not detec galileo. No labor atory evide nce of HIV infec tion. Not Available [facility] (Lab) [address] [facility], [place], [address], 04/01/2025 13:08:25 03/31/20 25 03/31/2025 HEPAT ITIS B SURFA CE ANTIG EN hepatitis B surface antigen Non-re active non-re active This assay was perfo rmed using [employer] ratio n reage nts and test kits. Value s obtai holden with other assay metho ds or kits canno t be used inter wright eably . Not Available [facility] (Lab) [address] [facility], [place], [address], 04/01/2025 13:08:25 03/31/20 25 03/31/2025 HEPAT ITIS C ANTIB JEANE SCREE N, REFLE X TO CONFI RMATI ON hepatitis C antibody Non-re active non-re active Antib odies to HCV Not Detec galileo, does not exclu de the possi bilit y of expos ure to HCV. Not Available [facility] (Lab) [address] [facility], [place], [address], 04/01/2025 13:08:26 03/31/20 25 03/31/2025 RUBEL LA IGG ANTIB JEANE, QUANT rubella antibodies, IgG Reacti ve reacti ve Not Available [facility] (Lab) [address] [facility], [place], [address], 04/01/2025 13:08:26 03/31/20 25 03/31/2025 RUBEL LA IGG ANTIB JEANE, QUANT rubella antibodies, IgG quant 20.2 IU/mL >=10 Non-r eacti ve (Non- Immun e) <10 IU/mL React rhett (Immu ne) > or = 10 IU/mL Not Available [facility] (Lab) [address] [facility], [place], [address], 04/01/2025 13:08:26 03/31/20 25 03/31/2025 TYPE/ RH/SC REEN ABO/Rh type O POS Not Available [facility] (Lab) [address] [facility], [place], [address], 04/01/2025 13:08:27 03/31/20 25 03/31/2025 TYPE/ RH/SC REEN antibody screen NEG Not Available [facility] (Lab) [address] [facility], [place], [address], 04/01/2025 13:08:27 03/31/20 25 03/31/2025 TYPE/ RH/SC REEN exp date 2024 23:59 Not Available [facility] (Lab) [address] [facility], [place], [address], 04/01/2025 13:08:27 03/31/20 25 03/31/2025 HEMOG LOBIN [...] >8.0% Actio n sugge sted Not Available [facility] (Lab) [address] [place], [address], 04/01/2025 13:08:27 03/31/20 25 03/31/2025 LEAD, BLOOD (ADUL T/PED IATRI C) lead, whole blood <1.0 mcg/d L <3.5 See Note 1 Constantino sis was perfo rmed by Yariel Cordoba ed [employer]asm a Mass Spect romet ry (ICPM S) Note 1 This test was devel oped and its constantino tical perfo rmanc e jair cteri stics have been deter mined by [employer]. It has not been clear ed or appro andrea by the FDA. This assay has been valid ated pursu ant to the CLIA regul ation s and is used for clini saeed purpo ses. Perfo rming Organ izati on Infor matana n: Site ID: CB Name: [employer]-Stein eduardo Jeff Addre ss: [address] [place], [place] [phone] Direc tor: Antho ny V Chun s Not Available [facility] (Lab) [address] [facility], [place], [address], 04/01/2025 13:08:27 03/31/20 25 03/31/2025 RPR SCREE N, REFLE X TITER /CONF IRMAT ION RPR qualitative Nonrea ctive nonrea ctive Not Available [facility] (Lab) [address] [place], [address], 04/01/2025 13:08:28 03/31/20 25 03/31/2025 CULTU RE: URINE result report SEE RESULT S BELOW Test: Cultu re: Urine Speci men Sourc e: Urine - Clean Catch Speci men Type: Urine Speci men Date: 2024 1146 Resul t Date: 2024 2136 Resul t Statu s: Final resul t Abnor mal: No Resul ting Lab: [facility] [address] [facility] [address] Tel: CULTU RE ----- ----- ----- --- No growt h in 1 day (dete ction level of 10,00 0 colon ies / ml.) Not Available [facility] (Lab) [address] [facility], [place], [address], 04/01/2025 22:39:48 03/31/20 25 03/31/2025 drug scree n, urine Amphetamines : negati ve Not Available [facility] [address], [place], [address], 03/31/2025 11:22:20 03/31/20 25 03/31/2025 drug scree n, urine Cannabinoids : negati ve Not Available [facility] [address], [place], [address], 03/31/2025 11:22:20 03/31/20 25 03/31/2025 drug scree n, urine Cocaine: negati ve Not Available [facility] [address], [place], [address], 03/31/2025 11:22:20 03/31/20 25 03/31/2025 drug scree n, urine Opiates: negati ve Not Available [facility] [address], [place], [address], 03/31/2025 11:22:20 03/31/20 25 03/31/2025 drug scree n, urine Phenocyclidi ne: negati ve Not Available [facility] [address], [place], [address], 03/31/2025 11:22:20 03/31/20 25 03/31/2025 drug scree n, urine Barbiturates : negati ve Not Available [facility] [address], [place], [address], 03/31/2025 11:22:20 03/31/20 25 03/31/2025 drug scree n, urine Benzodiazepi vianca: negati ve Not Available [facility] [address], [place], [address], 03/31/2025 11:22:20 03/31/20 25 03/31/2025 drug scree n, urine Ethanol: negati ve Not Available [facility] [address], [place], [address], 03/31/2025 11:22:20 03/31/20 25 03/31/2025 drug scree n, urine Hallucinogen s: negati ve Not Available [facility] [address], [place], [address], 03/31/2025 11:22:20 03/31/20 25 03/31/2025 drug scree n, urine Inhalants: negati ve Not Available [facility] [address], [place], [address], 03/31/2025 11:22:20 03/31/20 25 03/31/2025 drug scree n, urine Anabolic Steroids: negati ve Not Available [facility] [address], [place], [address], 03/31/2025 11:22:20 03/31/20 25 03/31/2025 US, obste tric, 1st trime ster No observ ation record ed. [email or web address] [place] [address], [place], [address], 04/04/2025 13:21:29 03/31/20 25 03/31/2025 US, obste tric, nucha l trans lucen cy No observ ation record ed. [email or web address] [facility] [address], [place], [address], 03/31/2025 13:46:11 05/24/20 25 05/24/2025 US, obste tric, 2nd or 3rd trime ster No observ ation record ed. [place] [address], [place], [address], 06/01/2025 16:11:10 05/24/20 25 05/24/2025 US, obste tric, follo w-up No observ ation record ed. [place] [address], [place], [address], 05/30/2025 09:30:25 05/24/20 25 05/25/2025 US, obste tric, 2nd or 3rd trime ster No observ ation record ed. [email or web address] [facility] [address], [place], [address], 05/25/2025 11:09:27 06/08/20 25 06/08/2025 US, obste tric, limit ed No observ ation record ed. [email or web address] [facility] [address], [place], [address], 06/08/2025 18:20:00 06/08/20 25 06/08/2025 US, obste tric, limit ed No observ ation record ed. [email or web address] [address], [place], [address], 06/08/2025 17:22:11 06/16/20 25 06/16/2025 US, obste tric, limit ed No observ ation record ed. [email or web address] [facility]ry Department[facility] [address] [facility] [address], [place], [address], 06/22/2025 14:08:35 06/16/20 25 06/16/2025 US, obste tric, follo w-up No observ ation record ed. [email or web address] [facility] [address] [place] [address], [place], [address], 06/23/2025 15:02:25 Result Notes None recorded. Problems Name Problem SNOMED Code Status Onset Date Resolution Date Notes Provider Name and Address Organization Details Recorded Time Venous escoto 263478169 Completed resolved Ana Lilia arthurl null, [facility] 2 12:55:17 Marginal insertio n of umbilica l cord 91737328 Completed serial growth Ana Lilia arthurl null, [facility] 2 12:55:17 Group B Streptoc occus carrier 36897987652 03 Completed Ana Lilia arthurl null, [facility] 2 12:55:17 Anxiety in pregnanc y 60217645301 109 Active lexapro, weaned off 20w- wants to restart in hospital after delivery Noni Marcus [facility] 3 12:45:59 Anxiety in pregnanc y 26155716000 109 Completed lexapro, weaned off 20w- wants to restart in hospital after delivery Noni Marcus [facility] 3 12:45:59 Placenta circumva llata 6061577 Completed growth Noni Marcus [facility] 3 12:45:59 Pregnanc y 55426407 Completed 202008/26/2021 Karley Ann-Marie null, [facility] 5 14:33:26 Pregnanc y 77593282 Completed 202206/08/2023 Karley Ann-Marie null, [facility] 5 14:33:26 Pregnanc y 74530735 Active 2024 Karley Edwardst null, [facility] 5 14:33:26 Placenta circumva llata 7798582 Active 2024 32wk [facility] 10:06:34 Placenta circumva llata 7091665 Active 2024 32wk growth Jayla laird [facility] 10:06:34 Problem Notes None recorded. Procedures Surgical History Date Name Laterality Status Provider Name and Address Organization Details Recorded Time 11/19/19 Date of Last Pap Smear completed Savanna [facility] 04/02/2023 18:08:39 09/28/19 Cholecystectomy completed Yessica [facility] 06/26/2021 16:42:10 [facility] 05/13/2023 12:27:26 Cholecystectomy completed Karley Jacobsen [facility] 04/28/2025 10:20:57 Imaging Results None recorded. Procedure Notes None recorded. Medical Equipment None Reported. Allergies Allergen ID Allergen Name Allergen Category Reaction Reaction Severity Criticality Documentation Date Start Date Code Code System Note Provider Name and Address Organization Details Recorded Time 06119 Latex (substanc e) environme nt,medica tion rash moderate Not available 06/26/2021 29521 8007 SNOMED Yessica Faustin [facility] 14:06:35 30852 honey preparati on food,medi cation hives Not available Not available 06/26/2021 83564 9 RxNorm Yessica Faustin [facility] 14:06:53 78429 Reglan medicatio n Not available Not available Not available 11/15/2024 9230 RxNorm Lakshmi Reich [facility] 16:42:34 26828 latex environme nt,medica tion itching Not available Not available 06/21/20252020 16150 91 RxNorm Not Available ariana - External Data Service - prod 12:15:41 82298 metoclopr amide Not available myalgias (muscle pain) other Not available Not available high 06/21/20252023 6915 RxNorm TARDI VE DYSKI NESIA Not Available [facility] External Data Service - prod 12:15:44 Medications [...] Updated DateTime 04/28/2025 160.02 cm 25.3 kg/m2 45947.71 g 126/68 mm[Hg] Karley Jacobsen [facility] 04/28/2025 10:20:50 Social History Question Answer Notes LastModified by Organizat ion Details LastModified Time Tobacco Smoking Status Current Every Day Smoker Zoila laird [facility] 07/08/2023 12:55:11 Do You Have An [...] Or The Highest Degree You Have Received? [id number] Information not available 06/26/2021 Are There Any Guns Present In Your Home? No Information not available 06/26/2021 Do You Use Protection During Sex? No Information not available 06/26/2021 Do You Use Your Seat Belt Or Car Seat Routinely? Yes Information not available 06/26/2021 Are You Sexually Active? Yes [email or web address] Information not available 03/08/2025 Do You Have Smoke And Carbon Monoxide Detectors In Your Home? Yes Information not available 06/26/2021 At What Age Did You Start Smoking Tobacco? 14 Information not available 06/26/2021 How Much Tobacco Do You Smoke? No [email or web address] Information not available 05/22/2023 Do You Use Sunscreen Routinely? Yes Information not available 06/26/2021 How Many Years Have You Smoked Tobacco? 6 Information not available 06/26/2021 Have You Used IV Drugs? No Information not available 06/26/2021 Do You Have Difficulty Walking Or Climbing Stairs? No [email or web address] Information not available 07/08/2023 Sex: Unknown Functional [...] able to care for yourself independently? Yes [email or web address] Information not available 07/08/2023 Do you have difficulty dressing, bathing, grooming, or toileting? No Information not available 07/08/2023 What is your exercise level? Occasional Information not available 06/26/2021 Mental Status Question Answer Note LastModified by Organization D etails LastModified Time Do you feel stressed (tense, restless, nervous, or anxious, or unable to sleep at night)? [id number] Information not available 06/26/2021 Family History Relationship Description Onset Age of this Age Resolved Age Notes LastModified by Organization Details LastModified Time Father No current problems or disability [email or web address] Not available 11/15 16:44:39 Mother No current problems or disability [email or web address] Not available 11/15 16:44:39 Medical History Condition [...] ICD10 Code Diagnosis IMO Codes Diagnosis Note [id number] Chad Andino MD [facility] [address],[place] [address] 03/31/2025 10:29:43 03/31/2025 11:04:00 screening 407852128 Z36.82 Z3A.12 869345 [id number] [facility] [address],[place] [address] 03/31/2025 10:30:11 03/31/2025 11:35:43 Gestation period, 12 weeks 98629310 Z3A.12 9382081 [id number] [facility] [address],[place] [address] 04/28/2025 10:10:09 04/28/2025 10:52:47 Gestation period, 16 weeks 64567409 Z3A.16 [id number] cont pnv Health Concerns Section Related Observation LastModified by Organization Detai ls LastModified Time None Recorded Concern Status LastModified by Organization Details LastModified Time None Recorded Payers Encounter Date Sequence Insurance Name Policy Number Policy Willett Covered Member ID Willett Member ID Guarantor Name 04/28/2025 2 [facility] (MEDICAID HMO) [id number] Joann Parson [id number] Joann Parson Notes Date Note Type Note Provider Name and Address Organization Details Recorded Time 04/28/2025 text/html Generic HPI TemplateReported by Patient Mariana Ioana Motley, [facility] [address], [place], [address], [place] [facility] 04/28/2025 10:41:05 OBGyn Episode Ob Episode Information Episode Created Date Number of Fetuses Patient Bloodtype Patient rh Status Prepregnancy Weight lbs Domestic Partner Domestic Partner Phone Father Name Bed Machine Operator Status 03/23/20 25 1 O Positive 139 OPEN Fetus Data First Name Last Name Admitted to NICU Weight (g) Sex Living Outcome Pediatric Complications Fetus ID Race Codes Race Delivery Type F [id number] Problems Problem Notes [place] 20wk scan Re ferral faxed [facility] 06/01 Problem Name Start Date End Date Resolution Snomed Code Not e Placenta circumvallata 05/25/2025 695443 0 32wk growth us Daniel Calculation Initial Daniel Date Initial Exam Date Initial Exam Provider Initial Ultrasound Date Last Menstrual Period Date Ultra Sound Weeks Gestation 10/09/2025 03/23/2025 03/08/2025 9 Eighteen To Twenty Week Daniel Update Ultra Sound Date Fundal Height At Umbil Quickening Date Ultra Sound Latest Weeks Gestation Final Daniel Confirmed By Final Daniel Confirmed Date Final Adniel Date Ultra Sound Latest Days Gestation 05/24/20 [...] Weight in lbs Pre/Post Dialysis Refused Weight 138.336569973873 BP Diastolic BP Location Tested BP Systolic [...] Weight in lbs Pre/Post Dialysis Refused Weight 143.634258003564 BP Diastolic BP Location Tested BP Systolic [...] Weight in lbs Pre/Post Dialysis Refused Weight 146.273086188029 BP Diastolic BP Location Tested BP Systolic [...] Type Weight in lbs Pre/Post Dialysis Refused 151.357997510711 BP Diastolic BP Location Tested BP Systolic BP Type 77 L arm 123 sitting Fetus Heart Rate Present A 145 Present Fetus Movement A Yes Comments +FM, saw [facility] mfm, saw heber escoto unable to finish anatomy, anatomy was completed here. pt desires to f/u us here, unable to get to [facility], no car, precautions and education, [...]
--- OUTSIDE RECORDS SUMMARY | 2025-06-27 13:09 | XMS_ITS | Encounter Summary ---
Author Organization [facility] Address [address] [facility] 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 Patients taking J-ndhxfxqo-viqzeiikih may show falsely elevated levels of Homocysteine. [...] Final Result [facility] [address] [place] [address] documented in this encounter Visit Diagnoses Diagnosis Abnormal results of other endocrine function studies Encounter for supervision of normal , unspecified, unspecified trimester (HCC) documented in this encounter Care Teams Buttermilk Drier Operator Relationship Specialty Start Date End Date Horace Guzmán MD [address] [place] [id number] PCP - General Pediatrics 01/03/14 12/22/23 documented as of this encounter
--- OUTSIDE RECORDS SUMMARY | 2025-06-27 13:09 | XMS_ITS | Continuity of Care Document ---
Author Organization [facility] Address [address] [place] [address] [address] [place] [address] Assessment No assessment recorded. Plan of Treatment [...] None recorde d. Imaging US, obstetr ic, nuchal translu cency 2024 025 [facility], [address], [address], [place], [address], 03/31/2025 23:03:03 Medication Orders None recorde d. Patient TargetsNo targets recorded. Patient InstructionsNo instructions recorded. Reason for Referral None Reported. Results Created Date Observation Date Name Description Value Unit Range Abnormal Flag Note LastModifiedBy Organization Detail LastModifiedTime 03/31/2003/31/2025 CBC W/DIF F WBC 9.8 10'3/ uL 3.5-10 .5 Not Available [facility] (Lab) [address], [place], [address], 04/01/2025 13:08:25 03/31/20 25 03/31/2025 CBC W/DIF F RBC 4.23 10'6/ uL (based on docume nted legal sex) 3.80-5 .20 Not Available [facility] (Lab) [address], [place], [address], 04/01/2025 13:08:25 03/31/20 25 03/31/2025 CBC W/DIF F HGB 12.7 g/dL (based on docume nted legal sex) 11.6-1 5.4 Not Available [facility] (Lab) [address], [place], [address], 04/01/2025 13:08:25 03/31/20 25 03/31/2025 CBC W/DIF F HCT 38.4 % (based on docume nted legal sex) 34.0-4 5.0 Not Available [facility] (Lab) [address], [place], [address], 04/01/2025 13:08:25 03/31/20 25 03/31/2025 CBC W/DIF F MCV 90.8 fL 80.0-9 9.0 Not Available [facility] (Lab) [address], [place], [address], 04/01/2025 13:08:25 03/31/20 25 03/31/2025 CBC W/DIF F MCH 30.0 pg 27.0-3 4.0 Not Available [facility] (Lab) [address], [place], [address], 04/01/2025 13:08:25 03/31/20 25 03/31/2025 CBC W/DIF F MCHC 33.1 g/dL 32.0-3 5.5 Not Available [facility] (Lab) [address], [place], [address], 04/01/2025 13:08:25 03/31/20 25 03/31/2025 CBC W/DIF F RDW 13.1 % 11.0-1 5.0 Not Available [facility] (Lab) [address], [place], [address], 04/01/2025 13:08:25 03/31/20 25 03/31/2025 CBC W/DIF F plt 245 10'3/ uL 150-40 0 Not Available [facility] (Lab) [address], [place], [address], 04/01/2025 13:08:25 03/31/20 25 03/31/2025 CBC W/DIF F MPV 11.4 fL 8.8-12 .1 Not Available [facility] (Lab) [address], [place], [address], 04/01/2025 13:08:25 03/31/20 25 03/31/2025 CBC W/DIF F NRBC's 0.0 % 0.0 Not Available [facility] (Lab) [address], [place], [address], 04/01/2025 13:08:25 03/31/20 25 03/31/2025 CBC W/DIF F absolute NRBCs 0.0 10'3/ uL no refere nce range establ ished Not Available [facility] (Lab) [address], [place], [address], 04/01/2025 13:08:25 03/31/20 25 03/31/2025 CBC W/DIF F neutrophils 72.6 % 34.0-7 3.0 Not Available [facility] (Lab) [address], [place], [address], 04/01/2025 13:08:25 03/31/20 25 03/31/2025 CBC W/DIF F lymphocytes 19.8 % 15.0-5 0.0 Not Available [facility] (Lab) [address], [place], [address], 04/01/2025 13:08:25 03/31/20 25 03/31/2025 CBC W/DIF F monocytes 5.9 % 1.0-15 .0 Not Available [facility] (Lab) [address] [place], [address], 04/01/2025 13:08:25 03/31/20 25 03/31/2025 CBC W/DIF F eosinophils 1.2 % 0.0-8. 0 Not Available [facility] (Lab) [address] [facility], [place], [address], 04/01/2025 13:08:25 03/31/20 25 03/31/2025 CBC W/DIF F basophils 0.2 % 0.0-2. 0 Not Available [facility] (Lab) [address] [facility], [place], [address], 04/01/2025 13:08:25 03/31/20 25 03/31/2025 CBC W/DIF [...] separ ately if prese nt. Not Available [facility] (Lab) [address] [facility], [place], [address], 04/01/2025 13:08:25 03/31/20 25 03/31/2025 CBC W/DIF F absolute neutrophils 7.1 10'3/ uL 1.5-8. 0 Not Available [facility] (Lab) [address], [place], [address], 04/01/2025 13:08:25 03/31/20 25 03/31/2025 CBC W/DIF F absolute lymphocytes 1.9 10'3/ uL 1.0-4. 0 Not Available [facility] (Lab) [address] [facility], [place], [address], 04/01/2025 13:08:25 03/31/20 25 03/31/2025 CBC W/DIF F absolute monocytes 0.6 10'3/ uL 0.2-1. 0 Not Available [facility] (Lab) [address] [facility], [place], [address], 04/01/2025 13:08:25 03/31/2003/31/2025 CBC W/DIF F absolute eosinophils 0.1 10'3/ uL 0.0-0. 6 Not Available [facility] (Lab) [address] [facility], [place], [address], 04/01/2025 13:08:25 03/31/2003/31/2025 CBC W/DIF F absolute basophils 0.0 10'3/ uL 0.0-0. 3 Not Available [facility] (Lab) [address] [facility], [place], [address], 04/01/2025 13:08:25 03/31/20 25 03/31/2025 CBC W/DIF [...] larose book. nm.or g/gen derx Not Available [facility] (Lab) [address] [facility], [place], [address], 04/01/2025 13:08:25 03/31/2003/31/2025 HIV 1/2 ANTIG EN/AN TIBOD Y, REFLE X CONFI RMATI ON HIV antigen/anti body Nonrea ctive nonrea ctive HIV-1 antig en and HIV-1 /HIV- 2 antib odies were not detec galileo. No labor atory evide nce of HIV infec tion. Not Available [facility] (Lab) [address] [facility], [place], [address], 04/01/2025 13:08:25 03/31/2003/31/2025 HEPAT ITIS B SURFA CE ANTIG EN hepatitis B surface antigen Non-re active non-re active This assay was perfo rmed using [employer] ratio n reage nts and test kits. Value s obtai holden with other assay metho ds or kits canno t be used inter wright eably . Not Available [facility] (Lab) [address] [facility], [place], [address], 04/01/2025 13:08:25 03/31/2003/31/2025 HEPAT ITIS C ANTIB JEANE SCREE N, REFLE X TO CONFI RMATI ON hepatitis C antibody Non-re active non-re active Antib odies to HCV Not Detec galileo, does not exclu de the possi bilit y of expos ure to HCV. Not Available [facility] (Lab) [address] [facility], [place], [address], 04/01/2025 13:08:26 03/31/20 25 03/31/2025 RUBEL LA IGG ANTIB JEANE, QUANT rubella antibodies, IgG Reacti ve reacti ve Not Available [facility] (Lab) [address] [facility], [place], [address], 04/01/2025 13:08:26 03/31/20 25 03/31/2025 RUBEL LA IGG ANTIB JEANE, QUANT rubella antibodies, IgG quant 20.2 IU/mL >=10 Non-r eacti ve (Non- Immun e) <10 IU/mL React rhett (Immu ne) > or = 10 IU/mL Not Available [facility] (Lab) [address] [facility], [place], [address], 04/01/2025 13:08:26 03/31/2003/31/2025 TYPE/ RH/SC REEN ABO/Rh type O POS Not Available [facility] (Lab) [address] [facility], [place], [address], 04/01/2025 13:08:27 03/31/2003/31/2025 TYPE/ RH/SC REEN antibody screen NEG Not Available [facility] (Lab) [address] [facility], [place], [address], 04/01/2025 13:08:27 03/31/20 25 03/31/2025 TYPE/ RH/SC REEN exp date 2024 23:59 Not Available [facility] (Lab) [address] [facility], [place], [address], 04/01/2025 13:08:27 03/31/20 25 03/31/2025 HEMOG LOBIN [...] >8.0% Actio n sugge sted Not Available [facility] (Lab) [address] [facility], [place], [address], 04/01/2025 13:08:27 03/31/20 25 03/31/2025 LEAD, BLOOD (ADUL T/PED IATRI C) lead, whole blood <1.0 mcg/d L <3.5 See Note 1 Constantino sis was perfo rmed by Yariel Cordoba ed Plasm a Mass Spect romet ry (ICPM S) Note 1 This test was devel oped and its constantino tical perfo rmanc e jair cteri stics have been deter mined by [employer]. It has not been clear ed or appro andrea by the FDA. This assay has been valid ated pursu ant to the CLIA regul ation s and is used for clini saeed purpo ses. Perfo rming Organ izati on Infor matio n: Site ID: CB Name: [facility] Jeff Addre ss: [address] [place] [address] Direc tor: Alden Mccollum s Not Available [facility] (Lab) [address] [facility], [place], [address], 04/01/2025 13:08:27 03/31/20 25 03/31/2025 RPR SCREE N, REFLE X TITER /CONF IRMAT ION RPR qualitative Nonrea ctive nonrea ctive Not Available [facility] (Lab) [address] [facility], [place], [address], 04/01/2025 13:08:28 03/31/20 25 03/31/2025 CULTU RE: URINE result report SEE RESULT S BELOW Test: Cultu re: Urine Speci men Sourc e: Urine - Clean Catch Speci men Type: Urine Speci men Date: 2024 1146 Resul t Date: 20246 Resul t Statu s: Final resul t Abnor mal: No Resul ting Lab: [facility] [address] [facility] [address] Tel: CULTU RE ----- ----- ----- --- No growt h in 1 day (dete ction level of 10,00 0 colon ies / ml.) Not Available [facility] (Lab) [address] [facility], [place], [address], 04/01/2025 22:39:48 03/31/20 25 03/31/2025 drug scree n, urine Amphetamines : negati ve Not Available [facility] [address], [place], [address], 03/31/2025 11:22:20 03/31/20 25 03/31/2025 drug scree n, urine Cannabinoids : negati ve Not Available [facility] [address], [place], [address], 03/31/2025 11:22:20 08/29/20 25 03/31/2025 drug scree n, urine Cocaine: negati ve Not Available [facility] [address], [place], [address], 03/31/2025 11:22:20 03/31/20 25 03/31/2025 drug scree n, urine Opiates: negati ve Not Available [facility] [address], [place], [address], 03/31/2025 11:22:20 03/31/20 25 03/31/2025 drug scree n, urine Phenocyclidi ne: negati ve Not Available [facility] [address], [place], [address], 03/31/2025 11:22:20 03/31/20 25 03/31/2025 drug scree n, urine Barbiturates : negati ve Not Available [facility] [address], [place], [address], 03/31/2025 11:22:20 03/31/20 25 03/31/2025 drug scree n, urine Benzodiazepi vianca: negati ve Not Available [facility] [address], [place], [address], 03/31/2025 11:22:20 03/31/20 25 03/31/2025 drug scree n, urine Ethanol: negati ve Not Available [facility] [address], [place], [address], 03/31/2025 11:22:20 03/31/20 25 03/31/2025 drug scree n, urine Hallucinogen s: negati ve Not Available [facility] [address], [place], [address], 03/31/2025 11:22:20 03/31/20 25 03/31/2025 drug scree n, urine Inhalants: negati ve Not Available [facility] [address], [place], [address], 03/31/2025 11:22:20 03/31/20 25 03/31/2025 drug scree n, urine Anabolic Steroids: negati ve Not Available [facility] [address], [place], [address], 03/31/2025 11:22:20 03/31/20 25 03/31/2025 US, obste tric, 1st trime ster No observ ation record ed. [email or web address] [address], [place], [address], 04/04/2025 13:21:29 03/31/20 25 03/31/2025 US, obste tric, nucha l trans lucen cy No observ ation record ed. [email or web address] [facility] [address], [place], [address], 03/31/2025 13:46:11 05/24/20 25 05/24/2025 US, obste tric, 2nd or 3rd trime ster No observ ation record ed. [email or web address] [place] [address], [place], [address], 06/01/2025 16:11:10 05/24/20 25 05/24/2025 US, obste tric, follo w-up No observ ation record ed. [email or web address] [address], [place], [address], 05/30/2025 09:30:25 05/24/20 25 05/25/2025 US, obste tric, 2nd or 3rd trime ster No observ ation record ed. [email or web address] [facility] [address], [place], [address], 05/25/2025 11:09:27 06/08/20 25 06/08/2025 US, obste tric, limit ed No observ ation record ed. [email or web address] [facility] [address], [place], [address], 06/08/2025 18:20:00 06/08/20 25 06/08/2025 US, obste tric, limit ed No observ ation record ed. [email or web address] [place] [address], [place], [address], 06/08/2025 17:22:11 06/16/20 25 06/16/2025 US, obste tric, limit ed No observ ation record ed. [email or web address] [facility] (Psychiatry Department) [address], [place], [address], 06/22/2025 14:08:35 06/16/20 25 06/16/2025 US, obste tric, follo w-up No observ ation record ed. [email or web address] [facility] [address], [place], [address], 06/23/2025 15:02:25 Result Notes None recorded. Problems Name Problem SNOMED Code Status Onset Date Resolution Date Notes Provider Name and Address Organization Details Recorded Time Venous escoto 556499551 Completed resolved Ana Lilia arthurl sisi, [facility] 2 12:55:17 Marginal insertio n of umbilica l cord 18418567 Completed serial growth Ana Lilia Bailey ehl null, [facility] 2 12:55:17 Group B Streptoc occus carrier 95427803332 03 Completed Ana Lilia arthurl sisi, [facility] 2 12:55:17 Anxiety in pregnanc y 46900827930 109 Active lexapro, weaned off 20w- wants to restart in hospital after delivery Noni laird, [facility] 3 12:45:59 Anxiety in pregnanc y 98520262314 109 Completed lexapro, weaned off 20w- wants to restart in hospital after delivery Noni laird, [facility] 3 12:45:59 Placenta circumva llata 3139506 Completed growth Noni laird, [facility] 3 12:45:59 Pregnanc y 90929418 Completed 202008/26/2021 Karley Ann-Mariezahra laird, [facility] 5 14:33:26 Pregnanc y 76925688 Completed 202206/08/2023 Karley Ann-Marie laird, [facility] 5 14:33:26 Pregnanc y 46939109 Active 2024 Karley Ann-Mariezahra laird, [facility] 5 14:33:26 Placenta circumva llata 0849163 Active 2024 32wk growth us Jayla laird, [facility] 5 10:06:34 Placenta circumva llata 8681852 Active 2024 32wk growth us Jayla laird, [facility] 5 10:06:34 Problem Notes None recorded. Procedures Surgical History Date Name Laterality Status Provider Name and Address Organization Details Recorded Time 11/19/19 23 Date of Last Pap Smear completed Savanna Wilson [facility] 04/02/2023 18:08:39 09/28/19 18 Cholecystectomy completed Yessica Faustin [facility] 06/26/2021 16:42:10 Laparoscopy completed Savanna Wilson [facility] 05/13/2023 12:27:26 Cholecystectomy completed Karley Jacobsen [facility] 04/28/2025 10:20:57 Imaging Results None recorded. Procedure Notes None recorded. Medical Equipment None Reported. Allergies Allergen ID Allergen Name Allergen Category Reaction Reaction Severity Criticality Documentation Date Start Date Code Code System Note Provider Name and Address Organization Details Recorded Time 17798 Latex (substanc e) environme nt,medica tion rash moderate Not available 06/26/2021 37694 8007 SNOMED Yessica Faustin [facility] 14:06:35 60868 honey preparati on food,medi cation hives Not available Not available 06/26/2021 50440 9 RxNorm Yessica Faustin [facility] 14:06:53 99437 Reglan medicatio n Not available Not available Not available 11/15/2024 9230 RxNorm Lakshmi Reich [facility] 16:42:34 60148 latex environme nt,medica tion itching Not available Not available 06/21/20252020 15934 91 RxNorm Not Available [employer] - prod 12:15:41 25197 metoclopr amide Not available myalgias (muscle pain) other Not available Not available high 06/21/20252023 6915 RxNorm TARDI VE DYSKI NESIA Not Available [employer] - prod 12:15:44 Medications Name [...] and Address Organization Details Last Updated DateTime 03/31/2025 160.02 cm 24.4 kg/m2 19685.75 g 105/69 mm[Hg] Karley Jacobsen [facility] 03/31/2025 11:15:47 Social History Question Answer Notes LastModified by Organizat ion Details LastModified Time Tobacco Smoking Status Current Every Day [facility] 07/08[facility]2023 12:55:11 Do You Have An Advance Directive? No Information not available 06/26/2021 If You Are , What Was Your Level Of Alcohol Consumption Prior To ? Occasional [email or web address] Information not available 07/08/2023 Are You Blind [...] Or The Highest Degree You Have Received? [id number] Information not available 06/26/2021 Are There Any Guns Present In Your Home? No Information not available 06/26/2021 Do You Use Protection During Sex? No Information not available 06/26/2021 Do You Use Your Seat Belt Or Car Seat Routinely? Yes Information not available 06/26/2021 Are You Sexually Active? Yes [email or web address] Information not available 03/08/2025 Do You Have Smoke And Carbon Monoxide Detectors In Your Home? Yes Information not available 06/26/2021 At What Age Did You Start Smoking Tobacco? 14 Information not available 06/26/2021 How Much Tobacco Do You Smoke? No [email or web address] Information not available 05/22/2023 Do You Use Sunscreen Routinely? Yes Information not available 06/26/2021 How Many Years Have You Smoked Tobacco? 6 Information not available 06/26/2021 Have You Used IV Drugs? No Information not available 06/26/2021 Do You Have Difficulty Walking Or Climbing Stairs? No [email or web address] Information not available 07/08/2023 Sex: Unknown Functional [...] difficulty dressing, bathing, grooming, or toileting? No [email or web address] Information not available 07/08/2023 What is your exercise level? Occasional Information not available 06/26/2021 Mental Status Question Answer Note LastModified by Organization D etails LastModified Time Do you feel stressed (tense, restless, nervous, or anxious, or unable to sleep at night)? [id number] Information not available 06/26/2021 Family History Relationship Description Onset Age of this Age Resolved Age Notes LastModified by Organization Details LastModified Time Father No current problems or disability [email or web address] Not available 11/15 16:44:39 Mother No current problems or disability [email or web address] Not available 11/15 16:44:39 Medical History Condition [...] ICD10 Code Diagnosis IMO Codes Diagnosis Note [id number] Chad Andino MD [place] [address] [address] 03/08/2025 12:45:55 03/08/2025 13:10:51 [id number] [facility] [address] [address] 03/08/2025 12:57:43 03/08/2025 14:29:55 Amenorrhea 75963403 N91.2 89804 pap up to datenausea b12 and unisom oksch resolvedf/ u new ob and screen at 12 weeks with nipt [id number] Chad Andino MD [place] [address],[place] [address] 03/31/2025 10:29:43 03/31/2025 11:04:00 screening 401226112 Z36.82 Z3A.12 [id number] [facility] [address],[place] [address] 03/31/2025 10:30:11 03/31/2025 11:35:43 Gestation period, 12 weeks 56753046 Z3A.12 [id number] Health Concerns Section Related Observation LastModified by Organization Detai ls LastModified Time None Recorded Concern Status LastModified by Organization Details LastModified Time None Recorded Payers Encounter Date Sequence Insurance Name Policy Number Policy Willett Covered Member ID Willett Member ID Guarantor Name 03/31/2025 2 [facility] (MEDICAID HMO) [id number] Joann Parson [id number] Joann Parson OBGyn Episode Ob Episode Information Episode Created Date Number of Fetuses Patient Bloodtype Patient rh Status Prepregnancy Weight lbs Domestic Partner Domestic Partner Phone 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 03/23/20 25 1 O Positive 139 OPEN Fetus Data First Name Last Name Admitted to NICU Weight (g) Sex Living Outcome Pediatric Complications Fetus ID Race Codes Race Delivery Type [id number] Problems Problem Notes [place] 20wk scan Re delio Chin [facility] 06/01 Problem Name Start Date End Date Resolution Snomed Code Not e Placenta circumvallata 05/25/2025 414882 0 32wk growth us Daniel Calculation Initial [...] Latest Days Gestation 05/24/20 25 20 1 Pre-floridalma Flowsheet Flowsheet Date 03/31/2025 Freeman Score Blood [...] Weight in lbs Pre/Post Dialysis Refused Weight 138.175569472246 BP Diastolic BP Location Tested BP Systolic [...] Weight in lbs Pre/Post Dialysis Refused Weight 143.518192686386 BP Diastolic BP Location Tested BP Systolic [...] Weight in lbs Pre/Post Dialysis Refused Weight 146.624107554226 BP Diastolic BP Location Tested BP Systolic [...] Type Weight in lbs Pre/Post Dialysis Refused 151.260977894398 BP Diastolic BP Location Tested BP Systolic BP Type 77 L arm 123 sitting Fetus Heart Rate Present A 145 Present Fetus Movement A Yes Comments +FM, saw [facility] mfm, saw heber santi escoto unable to finish anatomy, anatomy was completed here. pt desires to f/u us here, unable to get to [facility], no car, precautions and education, f/u 4 [...]
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
--- OUTSIDE RECORDS SUMMARY | 2025-06-27 13:09 | XMS_ITS | Continuity of Care Document ---
Author Organization [facility] Address [address] [place] [address] [place] [address] Assessment No assessment recorded. Plan of Treatment Reminders Order Date Submit Date Provider Last Modified By Organization Details Last Modified Time Details Appointments OB ROUTINE 2024 08:30A M Mariana Motley CNM Not available Not available Not available U/S OB GROWTH 2024 09:00A M ULTRASOUND Not available Not available Not available Lab drug screen, urine 2024 025 [address], [address], [place], [address], 03/31/2025 11:22:56 Referral None recorde d. Procedures None recorde d. Surgeries None recorde d. Imaging None recorde d. Medication Orders None recorde d. Patient TargetsNo targets recorded. Patient InstructionsNo instructions recorded. Reason for Referral None Reported. Results Created Date Observation Date Name Description Value Unit Range Abnormal Flag Note LastModifiedBy Organization Detail LastModifiedTime 03/31/2003/31/2025 CBC W/DIF F WBC 9.8 10'3/ uL 3.5-10 .5 Not Available [facility] (Lab) [address], [place], [address], 04/01/2025 13:08:25 03/31/2003/31/2025 CBC W/DIF F RBC 4.23 10'6/ uL (based on docume nted legal sex) 3.80-5 .20 Not Available [facility] (Lab) [address], [place], [address], 04/01/2025 13:08:25 03/31/2003/31/2025 CBC W/DIF F HGB 12.7 g/dL (based on docume nted legal sex) 11.6-1 5.4 Not Available [facility] (Lab) [address], [place], [address], 04/01/2025 13:08:25 03/31/20 25 03/31/2025 CBC W/DIF F HCT 38.4 % (based on docume nted legal sex) 34.0-4 5.0 Not Available [facility] (Lab) [address], [place], [address], 04/01/2025 13:08:25 03/31/20 25 03/31/2025 CBC W/DIF F MCV 90.8 fL 80.0-9 9.0 Not Available [facility] (Lab) [address], [place], [address], 04/01/2025 13:08:25 03/31/20 25 03/31/2025 CBC W/DIF F MCH 30.0 pg 27.0-3 4.0 Not Available [facility] (Lab) [address], [place], [address], 04/01/2025 13:08:25 03/31/20 25 03/31/2025 CBC W/DIF F MCHC 33.1 g/dL 32.0-3 5.5 Not Available [facility] (Lab) [address], [place], [address], 04/01/2025 13:08:25 03/31/20 25 03/31/2025 CBC W/DIF F RDW 13.1 % 11.0-1 5.0 Not Available [facility] (Lab) [address], [place], [address], 04/01/2025 13:08:25 03/31/20 25 03/31/2025 CBC W/DIF F plt 245 10'3/ uL 150-40 0 Not Available [facility] (Lab) [address], [place], [address], 04/01/2025 13:08:25 03/31/20 25 03/31/2025 CBC W/DIF F MPV 11.4 fL 8.8-12 .1 Not Available [facility] (Lab) [address], [place], [address], 04/01/2025 13:08:25 03/31/20 25 03/31/2025 CBC W/DIF F NRBC's 0.0 % 0.0 Not Available [facility] (Lab) [address], [place], [address], 04/01/2025 13:08:25 03/31/20 25 03/31/2025 CBC W/DIF F absolute NRBCs 0.0 10'3/ uL no refere nce range establ ished Not Available [facility] (Lab) [address], [place], [address], 04/01/2025 13:08:25 03/31/20 25 03/31/2025 CBC W/DIF F neutrophils 72.6 % 34.0-7 3.0 Not Available [facility] (Lab) [address], [place], [address], 04/01/2025 13:08:25 03/31/20 25 03/31/2025 CBC W/DIF F lymphocytes 19.8 % 15.0-5 0.0 Not Available [facility] (Lab) [address], [place], [address], 04/01/2025 13:08:25 03/31/20 25 03/31/2025 CBC W/DIF F monocytes 5.9 % 1.0-15 .0 Not Available [facility] (Lab) [address], [place], [address], 04/01/2025 13:08:25 03/31/20 25 03/31/2025 CBC W/DIF F eosinophils 1.2 % 0.0-8. 0 Not Available [facility] (Lab) [address], [place], [address], 04/01/2025 13:08:25 03/31/20 25 03/31/2025 CBC W/DIF F basophils 0.2 % 0.0-2. 0 Not Available [facility] (Lab) [address], [place], [address], 04/01/2025 13:08:25 03/31/20 25 03/31/2025 CBC W/DIF [...] separ ately if prese nt. Not Available [facility] (Lab) [address], [place], [address], 04/01/2025 13:08:25 03/31/20 25 03/31/2025 CBC W/DIF F absolute neutrophils 7.1 10'3/ uL 1.5-8. 0 Not Available [facility] (Lab) [address], [place], [address], 04/01/2025 13:08:25 03/31/20 25 03/31/2025 CBC W/DIF F absolute lymphocytes 1.9 10'3/ uL 1.0-4. 0 Not Available [facility] (Lab) [address] [place], [address], 04/01/2025 13:08:25 03/31/20 25 03/31/2025 CBC W/DIF F absolute monocytes 0.6 10'3/ uL 0.2-1. 0 Not Available [facility] (Lab) [address], [place], [address], 04/01/2025 13:08:25 03/31/20 25 03/31/2025 CBC W/DIF F absolute eosinophils 0.1 10'3/ uL 0.0-0. 6 Not Available [facility] (Lab) [address], [place], [address], 04/01/2025 13:08:25 03/31/2003/31/2025 CBC W/DIF F absolute basophils 0.0 10'3/ uL 0.0-0. 3 Not Available [facility] (Lab) [address], [place], [address], 04/01/2025 13:08:25 03/31/20 25 03/31/2025 CBC W/DIF [...] larose book. nm.or g/gen derx Not Available [facility] (Lab) [address], [place], [address], 04/01/2025 13:08:25 03/31/2003/31/2025 HIV 1/2 ANTIG EN/AN TIBOD Y, REFLE X CONFI RMATI ON HIV antigen/anti body Nonrea ctive nonrea ctive HIV-1 antig en and HIV-1 /HIV- 2 antib odies were not detec galileo. No labor atory evide nce of HIV infec tion. Not Available [facility] (Lab) [address], [place], [address], 04/01/2025 13:08:25 03/31/2003/31/2025 HEPAT ITIS B SURFA CE ANTIG EN hepatitis B surface antigen Non-re active non-re active This assay was perfo rmed using [employer] ratio n reage nts and test kits. Value s obtai holden with other assay metho ds or kits canno t be used inter wright eably . Not Available [facility] (Lab) [address], [place], [address], 04/01/2025 13:08:25 03/31/2003/31/2025 HEPAT ITIS C ANTIB JEANE SCREE N, REFLE X TO CONFI RMATI ON hepatitis C antibody Non-re active non-re active Antib odies to HCV Not Detec galileo, does not exclu de the possi bilit y of expos ure to HCV. Not Available [facility] (Lab) [address], [place], [address], 04/01/2025 13:08:26 03/31/20 25 03/31/2025 RUBEL LA IGG ANTIB JEANE, QUANT rubella antibodies, IgG Reacti ve reacti ve Not Available [facility] (Lab) [address], [place], [address], 04/01/2025 13:08:26 03/31/20 25 03/31/2025 RUBEL LA IGG ANTIB JEANE, QUANT rubella antibodies, IgG quant 20.2 IU/mL >=10 Non-r eacti ve (Non- Immun e) <10 IU/mL React rhett (Immu ne) > or = 10 IU/mL Not Available [facility] (Lab) [address], [place], [address], 04/01/2025 13:08:26 03/31/2003/31/2025 TYPE/ RH/SC REEN ABO/Rh type O POS Not Available [facility] (Lab) [address], [place], [address], 04/01/2025 13:08:27 03/31/2003/31/2025 TYPE/ RH/SC REEN antibody screen NEG Not Available [facility] (Lab) [address], [place], [address], 04/01/2025 13:08:27 03/31/20 25 03/31/2025 TYPE/ RH/SC REEN exp date 2024 23:59 Not Available [facility] (Lab) [address], [place], [address], 04/01/2025 13:08:27 03/31/20 25 03/31/2025 HEMOG LOBIN [...] >8.0% Actio n sugge sted Not Available [facility] (Lab) [address], [place], [address], 04/01/2025 13:08:27 03/31/20 25 03/31/2025 LEAD, BLOOD (ADUL T/PED IATRI C) lead, whole blood <1.0 mcg/d L <3.5 See Note 1 Constantino sis was perfo rmed by Yariel Cordoba ed Plasm a Mass Spect romet ry (ICPM S) Note 1 This test was devel oped and its constantino tical perfo rmanc e jair cteri stics have been deter mined by [employer]. It has not been clear ed or appro andrea by the FDA. This assay has been valid ated pursu ant to the CLIA regul ation s and is used for clini saeed purpo ses. Perfo rming Organ izati on Infor yang n: Site ID: CB Name: [employer] sKaro Aguilar Addre ss: [address] [place] [address] Direc tor: Alden ny V Chun s Not Available [facility] (Lab) [address] [place], [address], 04/01/2025 13:08:27 03/31/20 25 03/31/2025 RPR SCREE N, REFLE X TITER /CONF IRMAT ION RPR qualitative Nonrea ctive nonrea ctive Not Available [facility] (Lab) [address], [place], [address], 04/01/2025 13:08:28 03/31/20 25 03/31/2025 CULTU RE: URINE result report SEE RESULT S BELOW Test: Cultu re: Urine Speci men Sourc e: Urine - Clean Catch Speci men Type: Urine Speci men Date: 2024 1146 Resul t Date: 20246 Resul t Statu s: Final resul t Abnor mal: No Resul ting Lab: [facility] [address] [address] Tel: CULTU RE ----- ----- ----- --- No growt h in 1 day (dete ction level of 10,00 0 colon ies / ml.) Not Available [facility] (Lab) [address] [place], [address], 04/01/2025 22:39:48 03/31/20 25 03/31/2025 drug scree n, urine Amphetamines : negati ve Not Available [facility] [address], [place], [address], 03/31/2025 11:22:20 03/31/20 25 03/31/2025 drug scree n, urine Cannabinoids : negati ve Not Available [address], [place], [address], 03/31/2025 11:22:20 03/31/20 25 03/31/2025 drug scree n, urine Cocaine: negati ve Not Available [address], [place], [address], 03/31/2025 11:22:20 03/31/20 25 03/31/2025 drug scree n, urine Opiates: negati ve Not Available [address], [place], [address], 03/31/2025 11:22:20 03/31/20 25 03/31/2025 drug scree n, urine Phenocyclidi ne: negati ve Not Available [address], [place], [address], 03/31/2025 11:22:20 03/31/20 25 03/31/2025 drug scree n, urine Barbiturates : negati ve Not Available [address], [place], [address], 03/31/2025 11:22:20 03/31/20 25 03/31/2025 drug scree n, urine Benzodiazepi vianca: negati ve Not Available [address], [place], [address], 03/31/2025 11:22:20 03/31/20 25 03/31/2025 drug scree n, urine Ethanol: negati ve Not Available [address], [place], [address], 03/31/2025 11:22:20 03/31/20 25 03/31/2025 drug scree n, urine Hallucinogen s: negati ve Not Available [address], [place], [address], 03/31/2025 11:22:20 03/31/20 25 03/31/2025 drug scree n, urine Inhalants: negati ve Not Available [address], [place], [address], 03/31/2025 11:22:20 03/31/20 25 03/31/2025 drug scree n, urine Anabolic Steroids: negati ve Not Available [address], [place], [address], 03/31/2025 11:22:20 03/31/20 25 03/31/2025 US, obste tric, 1st trime ster No observ ation record ed. [email or web address] [address], [place], [address], 04/04/2025 13:21:29 03/31/20 25 03/31/2025 US, obste tric, nucha l trans [place]en cy No observ ation record ed. [email or web address] [address], [place], [address], 03/31/2025 13:46:11 05/24/20 25 05/24/2025 US, obste tric, 2nd or 3rd trime ster No observ ation record ed. [email or web address] [address], [place], [address], 06/01/2025 16:11:10 05/24/20 25 05/24/2025 US, obste tric, follo w-up No observ ation record ed. [email or web address] [address], [place], [address], 05/30/2025 09:30:25 05/24/20 25 05/25/2025 US, obste tric, 2nd or 3rd trime ster No observ ation record ed. [email or web address] [address], [place], [address], 05/25/2025 11:09:27 06/08/20 25 06/08/2025 US, obste tric, limit ed No observ ation record ed. [email or web address] [address], [place], [address], 06/08/2025 18:20:00 06/08/20 25 06/08/2025 US, obste tric, limit ed No observ ation record ed. [email or web address] [address], [place], [address], 06/08/2025 17:22:11 06/16/20 25 06/16/2025 US, obste tric, limit ed No observ ation record ed. [email or web address] [facility]ry Department[facility] [address] [facility] [address], [place], [address], 06/22/2025 14:08:35 06/16/20 25 06/16/2025 US, obste tric, follo w-up No observ ation record ed. [email or web address] [facility] [address] [facility] [address], [place], [address], 06/23/2025 15:02:25 Result Notes None recorded. Problems Name Problem SNOMED Code Status Onset Date Resolution Date Notes Provider Name and Address Organization Details Recorded Time Venous escoto 231088787 Completed resolved Ana Lilia laird, [facility] 2 12:55:17 Marginal insertio n of umbilica l cord 03997692 Completed serial growth Ana Lilia arthurl null, [facility] 2 12:55:17 Group B Streptoc occus carrier 59156900487 03 Completed Ana Lilia laird, [facility] 2 12:55:17 Anxiety in pregnanc y 86848809885 109 Active lexapro, weaned off 20w- wants to restart in hospital after delivery Noni laird, [facility] 3 12:45:59 Anxiety in pregnanc y 09674204833 109 Completed lexapro, weaned off 20w- wants to restart in hospital after delivery Noni Marcus [facility], [facility] 3 12:45:59 Placenta circumva llata 4267612 Completed growth Noni laird, [facility] 3 12:45:59 Pregnanc y 62770947 Completed 202008/26/2021 Karley laird, [facility] 5 14:33:26 Pregnanc y 74147524 Completed 202206/08/2023 Karley Jacobsen sisi, [facility] 5 14:33:26 Pregnanc y 22263417 Active 2024 Karley Jacobsen [facility], [facility] 5 14:33:26 Placenta circumva llata 8296090 Active 2024 32wk growth us Jayla Ruano [facility], [facility] 5 10:06:34 Placenta circumva llata 3005257 Active 2024 32wk growth us Jayla laird, [facility] 5 10:06:34 Problem Notes None recorded. Procedures Surgical History Date Name Laterality Status Provider Name and Address Organization Details Recorded Time 11/19/19 Date of Last Pap Smear completed Savanna Wilson [facility] 04/02/2023 18:08:39 09/28/19 Cholecystectomy completed Yessica Faustin [facility] 06/26/2021 16:42:10 Laparoscopy completed Savanna Wilson [facility] 05/13/2023 12:27:26 Cholecystectomy completed Kraley Jacobsen [facility] 04/28/2025 10:20:57 Imaging Results None recorded. Procedure Notes None recorded. Medical Equipment None Reported. Allergies Allergen ID Allergen Name Allergen Category Reaction Reaction Severity Criticality Documentation Date Start Date Code Code System Note Provider Name and Address Organization Details Recorded Time 75060 Latex (substanc e) environme nt,medica tion rash moderate Not available 06/26/2021 [address] [facility] 14:06:35 41199 honey preparati on food,medi cation hives Not available Not available 06/26/2021 [address] [facility] 14:06:53 75868 Reglan medicatio n Not available Not available Not available 11/15/[address] [facility] 16:42:34 85812 latex environme nt,medica tion itching Not available Not available 06/21/20252020 29907 91 RxNorm Not Available [email or web address] - prod 12:15:41 20154 metoclopr amide Not available myalgias (muscle pain) other Not available Not available high 06/21/20252023 6915 RxNorm TARDI VE DYSKI NESIA Not Available [employer] - prod 12:15:44 Medications Name [...] Updated DateTime 03/31/2025 160.02 cm 24.4 kg/m2 54666.75 g 105/69 mm[Hg] Karley Jacobsen [facility] 03/31/2025 11:15:47 Social History Question Answer Notes LastModified by Organizat ion Details LastModified Time Tobacco Smoking Status Current Every Day Smoker Zoila laird, [facility] 07/08/2023 12:55:11 Do You Have [...] Or The Highest Degree You Have Received? [id number] Information not available 06/26/2021 Are There Any Guns Present In Your Home? No Information not available 06/26/2021 Do You Use Protection During Sex? No Information not available 06/26/2021 Do You Use Your Seat Belt Or Car Seat Routinely? Yes Information not available 06/26/2021 Are You Sexually Active? Yes Information not available 03/08/2025 Do You Have Smoke And Carbon Monoxide Detectors In Your Home? Yes Information not available 06/26/2021 At What Age Did You Start Smoking Tobacco? 14 Information not available 06/26/2021 How Much Tobacco Do You Smoke? No [email or web address] Information not available 05/22/2023 Do You Use Sunscreen Routinely? Yes Information not available 06/26/2021 How Many Years Have You Smoked Tobacco? 6 Information not available 06/26/2021 Have You Used IV Drugs? No Information not available 06/26/2021 Do You Have Difficulty Walking Or Climbing Stairs? No [email or web address] Information not available 07/08/2023 Sex: Unknown Functional [...] able to care for yourself independently? Yes [email or web address] Information not available 07/08/2023 Do you have difficulty dressing, bathing, grooming, or toileting? No [email or web address] Information not available 07/08/2023 What is your exercise level? Occasional Information not available 06/26/2021 Mental Status Question Answer Note LastModified by Organization D etails LastModified Time Do you feel stressed (tense, restless, nervous, or anxious, or unable to sleep at night)? [id number] Information not available 06/26/2021 Family History Relationship Description Onset Age of this Age Resolved Age Notes LastModified by Organization Details LastModified Time Father No current problems or disability [email or web address] Not available 11/15 16:44:39 Mother No current problems or disability [email or web address] Not available 11/15 16:44:39 Medical History Condition [...] ICD10 Code Diagnosis IMO Codes Diagnosis Note [id number] Chad Andino MD [facility] [address] [address] 03/08/2025 12:45:55 03/08/2025 13:10:51 [id number] Mariana Motley CNM [facility] [address] [address] 03/08/2025 12:57:43 03/08/2025 14:29:55 Amenorrhea 51654289 N91.2 22757 pap up to datenausea b12 and unisom oksch resolvedf/ u new ob and screen at 12 weeks with nipt [id number] Chad Andino MD [facility] [address],[place] [address] 03/31/2025 10:29:43 03/31/2025 11:04:00 screening 860092816 Z36.82 Z3A.12 [id number] [facility] [address],[place] [address] 03/31/2025 10:30:11 03/31/2025 11:35:43 Gestation period, 12 weeks [id number] Z3A.12 [id number] Health Concerns Section Related Observation LastModified by Organization Detai ls LastModified Time None Recorded Concern Status LastModified by Organization Details LastModified Time None Recorded Payers Encounter Date Sequence Insurance Name Policy Number Policy Willett Covered Member ID Willett Member ID Guarantor Name 03/31/2025 2 [facility] (MEDICAID HMO) [id number] Joann Parson [id number] Joann Parson OBGyn Episode Ob Episode Information Episode Created Date Number of Fetuses Patient Bloodtype Patient rh Status Prepregnancy Weight lbs Domestic Partner Domestic Partner Phone Father Name Centrifugal Separator Status 03/23/20 25 1 O Positive 139 OPEN Fetus Data First Name Last Name Admitted to NICU Weight (g) Sex Living Outcome Pediatric Complications Fetus ID Race Codes Race Delivery Type [id number] Problems Problem Notes [place] 20wk scan Re ferral faxed Giuseppe [facility] 06/01 Problem Name Start Date End Date Resolution Snomed Code Not e Placenta circumvallata 05/25/2025 236000 0 32wk growth us Daniel Calculation Initial [...] Weight in lbs Pre/Post Dialysis Refused Weight 138.574597125847 BP Diastolic BP Location Tested BP Systolic [...] Weight in lbs Pre/Post Dialysis Refused Weight 143.965838093867 BP Diastolic BP Location Tested BP Systolic [...] Weight in lbs Pre/Post Dialysis Refused Weight 146.804728279840 BP Diastolic BP Location Tested BP Systolic [...] Type Weight in lbs Pre/Post Dialysis Refused 151.263587056969 BP Diastolic BP Location Tested BP Systolic BP Type 77 L arm 123 sitting Fetus Heart Rate Present A 145 Present Fetus Movement A Yes Comments +FM, saw [facility] mfm, saw fredniurka santi escoto unable to finish anatomy, anatomy was completed here. pt desires to f/u us here, unable to get to [facility], no car, precautions and education, f/u 4 [...]
[2025-06-27 13:17] LABS: Total Protein Urine Random 15 mg/dL; Ur Ttl Prot Creatinine Ratio 0.22 mg/mg (0-0.20)
[2025-06-27] MEDS: ACETAMINOPHEN/BUTALBITAL/CAFFEINE 325-50-40 MG TABLET (FIORICET) 1 TAB PO (14:10)
== END 2025-06-27 15:12 | disposition home or self-care (01) ==
LOC: ANHOBOP 11:22 → ANHOBPP 11:23
PROVIDERS: PCP Nurse Practitioner Family; Visit Provider Advanced Practice Midwife
DX: O13.9 Gestational [pregnancy-induced] hypertension without significant proteinuria, unspecified trimester (principal); Z3A.00 Weeks of gestation of pregnancy not specified
CPT/HCPCS: 36415; 59025; 80053; 81001; 82570; 84156; 84550; 85025; 99199; A9270

== ENCOUNTER 2025-06-28 13:17 | Outpatient (NON) | payer OTHER, SELFPAY ==
--- OUTSIDE RECORDS SUMMARY | 2025-06-28 13:31 | XMS_ITS | Clinical Summary ---
Author Organization [facility] Address [address] [place] [address] Care Team Providers Care Movie Operator Name Role Phone Unavailable Primary Care Provider Unavailabl e Source Comments [facility],non-owned Affiliates and Associated Physician Practices is amultiple site organization consisting of ambulatory clinics and hospital sitesin [place], [place], [place] and [place]. This disclosure is being madepursuant to the Care Everywhere program and may not contain all information available regarding this patient. 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
--- OUTSIDE RECORDS SUMMARY | 2025-06-28 13:31 | XMS_ITS | Encounter Summary ---
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 Patients taking W-acnsulsk-nxqugzugho may show falsely elevated levels of Homocysteine. [...] LAB - BODY FLUID ORDERABLES Final Result [facility] [address] [place] [address] documented in this encounter Visit Diagnoses Diagnosis Abnormal results of other endocrine function studies Encounter for supervision of normal , unspecified, unspecified trimester (HCC) documented in this encounter Care Teams Ostomy Care Nurse Relationship Specialty Start Date End Date Horace Guzmán MD [address] [place] [id number] PCP - General Pediatrics 01/03/14 12/22/23 documented as of this encounter
--- OUTSIDE RECORDS SUMMARY | 2025-06-28 13:31 | XMS_ITS | Clinical Summary ---
Author Organization [facility] [address] Address [address] [place] [address] Care Team Providers Care Automotive Service Professional Name Role Phone Azra Rios NP Primary Care Provider [phone] Allergies Active Allergy Reactions Criticality Noted Date [...] [] Blue Team Referring Provider: Chad Andino [phone] [] or Medicare Insurance [x] Dating Criteria: [...] [] MOC: [] Method of feeding: [] Piece Work Inspector (specifically which provider): [] PP Depression Discussed: [...] Department Care Team Description 06/16/2025 9:45 AM DRIFTMAN Office Visit [facility] Medicine Maternal- Medicine [address] [place] [address] 7th [address] [place] [address] Placental abnormality in second trimester (Primary Dx); Supervision of high-risk , second trimester; Pericardial cyst 06/16/2025 9:15 AM DRIFTMAN - 06/16/2025 11:59 PM DRIFTMAN Hospital Encounter [facility] - Ultrasound [address] [place] [address], 7th Floor, [address] [place] [address] Supervision of high-risk , unspecified trimester Discharge Disposition: Discharge to home or self care 06/02/2025 Telephone [facility] Medicine Obstetrics and Gynecology [address] [place] [phone] [address]ley 06/02/2025 Telephone [facility] Medicine Obstetrics and Gynecology [address] [place] [phone] Miley Buckley from Last 3 Months Surgical [...] on file Legal Sex Female 10:40 AM DRIFTMAN Gender Identity Not on file Sexual Orientation [...] Estimated Date of Delivery 06/13/2025 - Present (06/28/2025) Unknown Dating Summary Based On [facility] [place] Diff Ultrasound on 02/13/2025 10/09/2025 GA:6w0d Ultrasound on 03/08/2025 10/06/2025 GA:9w5d Ultrasound on 03/31/2025 10/06/2025 GA:13w0d Ultrasound on 05/24/2025 10/10/2025 GA:20w1d Vitals Pregravid Weight Height TWG (As of 06/28/2025) Pregrav id BMI 160 cm (5' 3) Date GA Fund Present FHR Mvmt BP Weight Edema Alb Glu Ket Dil/ Eff/Sta 06/16/2025 Inpatient data n ot displayed here. See encounter summary. Notes Progress Notes - Office Visi t - 06/16/2025 - GA: 06/16/2025 - Travis Mcgarry MD Maternal Medicine Consult Note Reason for Consult: Placenta [place] Requesting Provider: Chad Andino MD Dear Dr. Andino, We had the pleasure of seeing your [...] Alcohol Use: Not on file Works as [employer] a Lives with Spouse and children Smoke [...] further testing or US exams. Assessment: Ms. oJann Parson is a efren 24 y.o. at [...] Mcgarry MD Professor Division of Maternal Medicine TMAN Progress Notes - Abstract - 06/13/2025 - GA: 06/13/2025 - Kaden Duarte ra, RMA Current OB records are under media tab and Care Everywhere. Cardiothoracic Surgery consult note from 01/25/25 is in [employer]. 10/18/24 Cardiology consult note is also in [facility]. TMAN Last Filed Vital Signs Vital Sign Reading Time Taken Comments Blood Pressure 113/69 06/16/2025 11:16 AM DRIFTMAN Pulse 87 06/16/2025 11:16 AM DRIFTMAN Temperature 36.8 C (98.2 F) 01/25/2025 12:48 PM CDT Respiratory Rate 18 01/25/2025 12:48 PM CDT Oxygen Saturation 99% 06/16/2025 11:16 AM DRIFTMAN Inhaled Oxygen Concentration - - Weight 67.7 kg (149 lb 3.2 oz) 06/16/2025 11:16 AM DRIFTMAN Height 160 cm (5' 3) 06/16/2025 11:16 AM DRIFTMAN Body Mass Index 26.43 06/16/2025 11:16 AM DRIFTMAN Plan of Treatment Health Maintenance Due Date [...] Read Routine (OP Routine) 06/16/2025 9:29 AM DRIFTMAN Supervision of high-risk , unspecified trimester HEMOGLOBIN [...] * US Ob Limited (06/16/2025 9:29 AM DRIFTMAN) Fetus# Fetus1 VIEWPOINT Estimated Weight 643 g&grams VIEWPOINT Placenta Details posterior, Previa-no VIEWPOINT Presentation Breech VIEWPOINT Anatomical Region Laterality Modality Abdomen N/A Ultrasound 06/16/2025 9:33 AM DRIFTMAN Impressions 06/16/2025 11:35 AM DRIFTMAN The measurements are consistent with gestational age. [...] SCRIBED HCV ab non-reacti ve Blood Result [facility] us Chad Andino MD LAB MICROBIOLOGY - [...] Result * CBC without differential (03/31/2025) Pathologist [facility] Hct 38.4 Hgb 12.7 Plt 245 Blood [...] Re sult from Last 3 Months Insurance [facility] Care Teams Automotive Service Professional Relationship Specialty Start Date End Date Azra Rios NP [address] [address] PCP - General Family Medicine 09/13/24
[2025-06-28 13:39] VITALS: BMI 27.3
[2025-06-28 15:32] LABS: Total Volume 24 Hour Urine 2150 ml
[2025-06-28 15:34] LABS: Total Protein Urine 24 Hr 279 mg/24hr (28-141); Total Protein Urine Random 13 mg/dL
[2025-06-28 15:35] LABS: Creatinine 24 Hour Urine 1.3 gm/24 (0.8-1.8)
== END 2025-06-28 13:18 | disposition home or self-care (01) ==
LOC: ANHOBOP 13:24
PROVIDERS: PCP Nurse Practitioner Family; Visit Provider Advanced Practice Midwife
DX: O13.9 Gestational [pregnancy-induced] hypertension without significant proteinuria, unspecified trimester (principal); Z3A.00 Weeks of gestation of pregnancy not specified
CPT/HCPCS: 81050; 82570; 84156